=== PATIENT | male | born 1985 | race Caucasian/White ===

== ENCOUNTER 2019-08-14 14:00 | Outpatient (RCR) | payer OTHER, SELFPAY ==
[2019-05-22 08:46] VITALS: BMI 27.1
== END 2019-08-20 23:59 | disposition home or self-care (01) ==
LOC: ANHDMC 14:00
PROVIDERS: PCP Family Medicine; Visit Provider Family Medicine
DX: E11.65 Type 2 diabetes mellitus with hyperglycemia (principal); Z71.89 Other specified counseling; Z71.3 Dietary counseling and surveillance
CPT/HCPCS: 97802; G0108

== ENCOUNTER 2022-08-06 21:07 | Inpatient (IN) | payer BC, SELFPAY ==
--- NOTE | ~2022-08-06 | XR_ITS ---
EXAMINATION: XR chest 2V DATE: 08/06/2022 23:47 INDICATION: Diabetic ketoacidosis. TECHNIQUE: Frontal and lateral views of the chest were obtained. COMPARISON: None. FINDINGS: Calcified right lung nodules are consistent with old granulomatous disease. No pleural effu nikki or pneumothorax. The heart size is normal. IMPRESSION: 1. No acute cardiopulmonary disease. Reviewed, dictated and finalized at location A. [facility] TESTING
[2022-08-06 21:14] VITALS: BP 113/99; PULSE 121; RESP 30; TEMP 36.1; O2SAT 100
[2022-08-06 21:31] LABS: Basophils Absolute Auto 0.1 K/mm3 (0.0-0.1); Basophils Percent Auto 0.3 % (0.2-1.2); Eosinophils Percent Auto 0.1 % (0-4.4); Hematocrit 43.8 % (42.0-52.0); Hemoglobin 14.2 g/dL (14.0-18.0); Immature Granulocyte Absolute 0.25 K/mm3 (0.00-0.031); Immature Granulocyte Percent A 1.3 % (0-0.5); Lymphocytes Percent Auto 7.5 % (18.3-44.2); Mean Corpuscular HGB Conc 32.4 g/dl (32-36); Mean Corpuscular Hemoglobin 29.4 pg (26-34); Mean Corpuscular Volume 90.7 fl (80-100); Mean Platelet Volume 9.8 fl (7.4-10.4); Monocytes Absolute Auto 0.8 K/mm3 (0.1-0.6); Monocytes Percent Auto 4.5 % (2.6-8.5); Neutrophils Absolute Auto 16.2 K/mm3 (1.3-6.7); Neutrophils Percent Auto 86.3 % (45.5-73.1); Platelet Count Result 288 k/mm3 (150-375); Red Blood Count 4.83 M/mm3 (4.6-6.20); Red Cell Distribution Width 13.4 % (11.5-14.5); White Blood Count 18.7 K/mm3 (4.5-10.0)
[2022-08-06 21:31] LABS: Glucose Point of Care 350 mg/dl (65-105)
[2022-08-06 22:10] LABS: Alanine Aminotransferase 23 U/L (6-50); Albumin Level 4.7 g/dL (3.5-5.1); Alkaline Phosphatase 119 U/L (38-126); Aspartate Amino Transferase 18 U/L (17-59); Bilirubin,Total 0.7 mg/dL (0.2-1.3); Blood Urea Nitrogen 19 mg/dL (9-20); Calcium 9.3 mg/dL (8.4-10.2); Carbon Dioxide < 5 mmol/L (22-30); Chloride 98 mmol/L (98-107); Estimated CRCL calculation 80 ml/min; Estimated Glomerular Filt Rate > 60; Glucose 435 mg/dL (65-110); Magnesium 2.5 mg/dL (1.6-2.3); Phosphorus 6.7 mg/dL (2.5-4.5); Potassium 5.3 mmol/L (3.4-5.0); Sodium 128 mmol/L (137-145)
[2022-08-06 22:16] VITALS: BP 134/83; PULSE 114; RESP 33; O2SAT 100
[2022-08-06] MEDS: SODIUM CHLORIDE 0.9% IV 1,000 ML 999 ML IV CONT ×2 (22:27→23:22)
[2022-08-06] MEDS: INSULIN HUMAN REGULAR (*BKC) 100 UNITS/ML 10 UNITS IV PUSH (22:28)
[2022-08-06 22:35] LABS: Glucose Point of Care 411 mg/dl (65-105)
[2022-08-06 22:42] LABS: Carboxyhemoglobin 0.8 % THb (0-2.0); Fractional Inspired Oxygen 21 %; HCO3 ABG 3.1 mEq/l (22.0-26.0); Methemoglobin ABG 0.6 %THb (0-1.5); Oxygen Content ABG 19.4 %vol (16.0-22.0); Oxygen Saturation ABG 96.6 % (95.0-100.0); PO2 ABG 134.6 mmHg (80.0-100.0); PO2 FiO2 Ratio Arterial Blood 6.41 %; Reduced Hemoglobin 2.6 %THb (0-5.0); Total Hemoglobin 14.2 g/dL (12.0-18.0)
[2022-08-06 22:44] LABS: PCO2 ABG 15.2 mmHg (35.0-45.0); pH ABG 6.926 (7.350-7.450)
[2022-08-06 22:45] VITALS: PULSE 121; RESP 30
[2022-08-06 22:45] LABS: Modified Allen's Test Pass; Site Drawn LEFT RADIAL
[2022-08-06 22:52] LABS: Hemoglobin A1C 12.4 % (<5.7)
[2022-08-06] MEDS: INSULIN HUMAN REGULAR (*BKC) 100 UNITS in SODIUM CHLORIDE 0.9% IV 99 ML 7 UNITS IV CONT (22:55)
--- NOTE | 2022-08-06 22:56 | ED.NAVMDI ---
HPI - Nausea/Vomiting/Diarrhea General Chief complaint: Nausea/Vomiting/Diarrhea Stated complaint: diabetic, I think I'm in DKA Time Seen by Provider: 08/06/22 22:09 History of Present Illness HPI Narrative: 37-year-old male history of type 2 diabetes presents to the emergency room for nausea vomiting, polyuria polydipsia and increased weakness over the past 7 days. Patient states he has not used his insulin for over a week, due to not getting it refilled. Related Data Home Medications Medication Instructions Recorded Confirmed bupropion HCl 150 mg tablet,12 hr 150 mg PO BID 05/22/19 sustained-release (Wellbutrin SR) sildenafil 100 mg tablet 100 mg PO DAILY PRN 05/22/19 insulin glargine 100 unit/mL (3 15 unit subcut DAILY 09/18/19 mL) subcutaneous pen (Basaglar KwikPen U-100 Insulin) Allergies Allergy/AdvReac Type Severity Reaction Status Date / Time No Known Allergies Allergy Verified 09/18/19 15:06 Review of Systems Review of Systems: CONSTITUTIONAL: Reports polyuria, polydipsia EYES: Denies visual changes, redness, or discharge. ENT: Denies rhinorrhea, congestion, sore throat, or otalgia. CARDIOVASCULAR: Denies chest pain, palpitations, or edema. RESPIRATORY: Reports tachypnea GASTROINTESTINAL: Reports nausea vomiting GENITOURINARY: Denies dysuria or hematuria. SKIN: Denies rash or itching. MUSCULOSKELETAL: Denies back pain, joint pain, or myalgia. NEUROLOGIC: Reports weakness PSYCHIATRIC: Denies anxiety or depression. [facility] Past Medical History Medical History (Updated 08/07/22 @ 00:16 by Lc Galarza APRN) Depression Type 2 diabetes mellitus Social History Social History Smoking status: Never smoker Alcohol intake: current Spiritual care concerns: No Exam Narrative: GENERAL: Chronically ill-appearing, well-nourished, no physical limitations, and in no acute distress. HEAD: Normocephalic, atraumatic. EYES: Conjunctivae normal, PERRLA and EOMI. ENT: External nose normal, Nares clear, no rhinorrhea or epistaxis. Mucous membranes dry. NECK: Supple. No meningeal signs. No adenopathy or masses. No carotid bruits or JVD CHEST: Clear to auscultation. Tachypneic. No wheezes rales or rhonchi. HEART: Tachycardia with regular rhythm. No murmur heard. Normal peripheral pulses. ABDOMEN: Soft, nontender, nondistended, normal active bowel sounds. BACK: No CVA tenderness EXTREMITIES: Normal range of motion. No edema. No clubbing or cyanosis SKIN: Warm, dry, no rash. No noted wounds NEURO: No focal deficits. Alert and oriented x3. MAEW. CN's II-XI intact bilaterally, normal gait PSYCH: Cooperative. Normal mood and affect. Course Vital Signs Vital signs: Vital Signs Temperature 36.1 C L 08/06/22 21:14 Pulse Rate 121 H 08/06/22 21:14 Respiratory Rate 30 H 08/06/22 21:14 Blood Pressure 113/99 H 08/06/22 21:14 Pulse Oximetry 100 08/06/22 21:14 Oxygen Delivery Room Air 08/06/22 21:14 Temperature 36.1 C L 08/06/22 21:14 Pulse Rate 116 H 08/06/22 23:15 Respiratory Rate 23 H 08/06/22 23:15 Blood Pressure 130/70 08/06/22 23:01 Pulse Oximetry 100 08/06/22 23:15 Oxygen Delivery Room Air 08/06/22 21:14 MDM - Nausea/Vomiting/Diarrhea Lab Data 08/06/22 21:25 08/06/22 21:25 Labs: Lab Results 08/06/22 08/06/22 08/06/22 Range/Units 21:22 21:25 21:25 WBC 18.7 H (4.5-10.0) K/mm3 RBC 4.83 (4.6-6.20) M/mm3 Hgb 14.2 (14.0-18.0) g/dL Hct 43.8 (42.0-52.0) % MCV 90.7 (80-100) fl MCH 29.4 (26-34) pg MCHC 32.4 (32-36) g/dl RDW 13.4 (11.5-14.5) % Plt Count 288 (150-375) k/mm3 MPV 9.8 (7.4-10.4) fl Immature Gran % (Auto) 1.3 H (0-0.5) % Neut % (Auto) 86.3 H (45.5-73.1) % Lymph % (Auto) 7.5 L (18.3-44.2) % [place] % (Auto) 4.5 (2.6-8.5) % Eos % (Auto) 0.1 (0-4.4) % Baso % (Auto) 0.3 (0.2-1.2
[2022-08-06 23:00] VITALS: PULSE 117; RESP 26; O2SAT 100
--- NOTE | 2022-08-06 23:00 | ECG_ITS ---
Measurements Intervals [place] Rate: 116 P: 49 MT: 168 QRS: 39 QRSD: 102 T: 7 QT: 327 QTc: 455 Interpretive Statements SINUS TACHYCARDIA NONSPECIFIC T-WAVE ABNORMALITY- INFERIOR LEADS BASELINE ARTIFACT- II, III, AVR, AVF ABNORMAL ECG NO PREVIOUS ECG AVAILABLE FOR COMPARISON Electronically Signed On 08-07-2022 9:58:42 BIKE ASSEMBLER by Fawad Anderson D.O.
[2022-08-06 23:01] VITALS: BP 130/70; PULSE 117; RESP 24; O2SAT 100
[2022-08-06 23:03] LABS: Glucose Point of Care 413 mg/dl (65-105)
[2022-08-06 23:09] LABS: Appearance Urine Clear (Clear); Bilirubin Urine 1+ (Negative); Blood Urine 1+ (Negative); Color Urine Yellow (Yellow); Glucose Urine UA 2+ mg/dL (Negative); Ketones Urine 4+ mg/dL (Negative); Leukocyte Esterase Ur Negative LEU/UL (Negative); Nitrate Urine Negative (Negative); Protein Urine 2+ mg/dL (Negative); Specific Grav Ur 1.025 (1.001-1.035); Urobilinogen Urine 0.2 mg/dL (<2.0)
[2022-08-06 23:12] LABS: Mucus Urine Rare /lpf
[2022-08-06 23:15] VITALS: PULSE 116; RESP 23; O2SAT 100
[2022-08-06 23:23] LABS: Add Urine Microscopic? YES
[2022-08-07] VITALS (19 sets, daily range): BP systolic 100–151; BP diastolic 60–111; PULSE 114–133; RESP 14–22; TEMP 36.6–37.4; O2SAT 98–100; BMI 28.3
[2022-08-07] MEDS: SODIUM CHLORIDE 0.9% IV 1,000 ML 999 ML IV CONT ×2 (00:11→06:49)
[2022-08-07] MEDS: SODIUM BICARBONATE 8.4% 50 MEQ/50 ML SYRINGE IV PUSH (00:11)
[2022-08-07 01:02] LABS: Glucose Point of Care 242 mg/dl (65-105)
[2022-08-07 01:02] LABS: Glucose Point of Care 330 mg/dl (65-105)
[2022-08-07] MEDS: KCL 20 MEQ/D5/0.45% SOD CHL 1,000 ML 150 ML IV CONT ×2 (01:45→08:56)
--- NOTE | 2022-08-07 01:54 | ADMGEN ---
This patient, Shane Wheeler, was admitted to Intensive Care Unit-5. Patient/family oriented to hospital policies and general routines including ID bracelet, bed and alarms, visiting hours, pain management, procedures, bathroom and other care routines, personal items, smoking policy, room service/diet, and visiting hours. Information on how to activate the Rapid Response Team has been discussed. Patient/Family are encouraged to report perceived risks to care and to ask questions if they do not understand what they are told or what they should do.
[2022-08-07 02:48] LABS: Glucose Point of Care 165 mg/dl (65-105)
[2022-08-07 03:14] LABS: Blood Urea Nitrogen 18 mg/dL (9-20); Calcium 8.2 mg/dL (8.4-10.2); Carbon Dioxide < 5 mmol/L (22-30); Chloride 111 mmol/L (98-107); Estimated CRCL calculation 90 ml/min; Estimated Glomerular Filt Rate > 60; Glucose 201 mg/dL (65-110); Potassium 4.2 mmol/L (3.4-5.0); Sodium 137 mmol/L (137-145)
[2022-08-07 03:19] LABS: Glucose Point of Care 193 mg/dl (65-105)
[2022-08-07 03:31] LABS: Influenza A QL RT-PCR Negative (Negative); Influenza B QL RT-PCR Negative (Negative); RSV RNA, RT-PCR Negative (Negative); SARS-CoV-2 RNA PCR Positive
[2022-08-07] MEDS: SODIUM BICARBONATE 8.4% 150 MEQ in DEXTROSE 5% 1,000 ML 950 ML IV CONT (04:09)
[2022-08-07 04:13] LABS: Glucose Point of Care 183 mg/dl (65-105)
[2022-08-07 05:02] LABS: Glucose Point of Care 195 mg/dl (65-105)
[2022-08-07 06:26] LABS: Glucose Point of Care 179 mg/dl (65-105)
[2022-08-07 06:59] LABS: Anion Gap 13 mmol/L (8-16); Blood Urea Nitrogen 17 mg/dL (9-20); Calcium 8.3 mg/dL (8.4-10.2); Carbon Dioxide 9 mmol/L (22-30); Chloride 109 mmol/L (98-107); Estimated CRCL calculation 111 ml/min; Estimated Glomerular Filt Rate > 60; Glucose 184 mg/dL (65-110); Potassium 3.6 mmol/L (3.4-5.0); Sodium 131 mmol/L (137-145)
--- NOTE | 2022-08-07 07:05 | PM.IMHP ---
H&P: HPI History of Present Illness Date/Time: 08/07/22 06:20 Chief Complaint: Vomiting, abdominal pain Narrative: 37-year-old male with past medical history of uncontrolled type 2 diabetes mellitus with insulin dependence who presented to the ER with nausea vomiting and abdominal pain. The patient evidently has had prior episodes of DKA due to nonadherence with medication regimen. He reports that he tested positive for COVID 12 03/06/2022. He had initial symptoms cough body aches and fevers. His cough has improved. He still has some nasal congestion. However he states that he did not feel that they did not follow-up with his doctor this past week to get a refill on his insulin. He has been out of insulin for at least 1 week. He states that he checks his blood sugars a couple of times a day but his sugars are routinely in the 300s. He takes 50 units of long-acting insulin but does not take any short-acting insulin. He has a Dexcom in place. He reports that he has been having several days of generalized the abdominal aching in pain in his sides. Then yesterday he began having numerous episodes of vomiting. He reports that his emesis was brown but did not appear to be consistent with coffee grounds. He reports having normal bowel movements. He denies any chest pain but has been short of breath for the last day or so. He has been having headache. He feels lightheaded and fatigued. Nursing staff reported that after IV fluid hydration the patient urinated 1 L and 1 void. At the time of my evaluation the patient had a palpable bladder up to the umbilicus. He reports that he will occasionally feels if he is not emptying his bladder completely but not recently. He denies any dysuria hematuria. He was having some urgency and frequency. He was having excessive thirst. He reports that he already has difficulty with erectile dysfunction. He denies any known history of neuropathy. He likely has nephropathy as demonstrated by his 2+ proteinuria. He denies a known history of obstructive sleep apnea or snoring. He states that his cannot tell him if he snores because she snores significantly. The patient reports that his weight was down several months ago in February on the side me and DKA. He states that he has put on some weight since then. Review of Systems Review of Systems: 12 systems were reviewed with pertinent positives and negatives per HPI. Except as documented in the HPI, all other systems were reviewed and are negative. [facility] Past Medical History Medical History (Updated 08/07/22 @ 07:26 by Marisol Oliveira DO) Depression Eczema Erectile dysfunction Type 2 diabetes mellitus Surgical History Surgical History (Updated 08/07/22 @ 07:26 by Marisol Oliveira DO) History of strabismus surgery In childhood Family History Family History (Updated 08/07/22 @ 07:30 by Marisol Oliveira DO) Grandparent Breast cancer Mother Unknown family medical history Estranged from the patient Father Unknown family medical history Estranged from the patient Social History Social History (Updated 08/07/22 @ 07:32 by Marisol Oliveira DO) Social History: The patient lives with his . They have been since 2021. They do not have any children. He is a lifelong nonsmoker. He drinks alcohol approximately once a month in in moderation. He works for a local [employer]. He denies illicit substance use. Code status: Full code Surrogate decision maker: Smoking status: Never smoker Alcohol intake: current Drinks per week: 0 Substance use: never Substance use type: does not use Lack of Transportation: No Lack of Food: Never True Current Housing: I Have Housing Concerned About Future Housing: No Difficulty Paying Gas/Electric Bills: No Difficulty Paying for Meds: No Currently Unemployed: No Education: Bachelor's Degree Difficulty w/ Childcare or Family Ca
[2022-08-07 07:27] LABS: Glucose Point of Care 188 mg/dl (65-105)
[2022-08-07 08:24] LABS: Glucose Point of Care 177 mg/dl (65-105)
[2022-08-07] MEDS: DULoxetine HCL 60 MG CAPSULE.DR PO (08:59)
[2022-08-07] MEDS: POTASSIUM CHLORIDE INJ 40 MEQ in SODIUM CHLORIDE 0.9% IV 500 ML 130 MEQ IVPB (08:59)
[2022-08-07] MEDS: lisinopriL 5 MG TABLET PO (08:59)
[2022-08-07] MEDS: INSULIN GLARGINE (*BKC) 100 UNITS/ML 60 UNITS SUB-Q (09:00)
--- NOTE | 2022-08-07 09:13 | WPDCNINT ---
Assessment and Plan Assessment and plan (1) DKA, type 2: Code(s): E11.10 - Type 2 diabetes mellitus with ketoacidosis without coma Status: Acute Assessment and Plan: Patient admitted with DKA secondary to noncompliance Patient was given IVF bolus and and started on infusion Patient was started on Insulin infusion and Q1H glucose monitoring was ordered Serial labs were ordered His anion gap is closed but CO2 is too low Will continue insulin infusion for now Will give Lantus Patient is asymptomatic and will start diet Switch to subcutaneous insulin with meals if patient tolerates p.o. diet and CO2 improves on the next BMP (2) Microalbuminuric diabetic nephropathy: Code(s): E11.21 - Type 2 diabetes mellitus with diabetic nephropathy Status: Acute Assessment and Plan: Continue lisinopril (3) Depression: Code(s): F32.9 - Major depressive disorder, single episode, unspecified Status: Acute Assessment and Plan: Continue duloxetine Plan DVT prophylaxis -SCDs Nutrition -diabetic Code Status - Full Code Stuffed Casing Tier Consult Note Consult date: 08/07/22 Reason for consult: DKA HPI: Shane Wheeler is a 37 year old male past medical history of type 2 diabetes and noncompliance who has been admitted in the past with DKA presented yesterday with chief complaint of abdominal pain nausea vomiting.. Patient ran out of his insulin almost a week ago and has not taken any insulin. Yesterday he started having nausea vomiting and abdominal pain. Abdominal pain was diffuse, no aggravating or relieving factor, 9/10 severe, achy, no radiation. No blood in vomitus. He was unable to keep anything down hence he presented to ER. ED patient was found to be in DKA. He had elevated WBC count but no other evidence of infection as his urinalysis was unremarkable for infection and chest x-ray was negative. Patient was admitted to ICU. He was given IV fluid bolus and started on IV fluids. He was given IV insulin and was started on IV insulin infusion. Serial labs ordered done. This morning he states he is feeling much better and denies any complaints at this time. He states his symptoms have completely resolved and he would like to eat food. He denies any nausea vomiting abdominal pain at this time. Patient denies fever, chest pain, shortness of breath, cough, nausea vomiting, abdominal pain,, diarrhea, headache or constipation. All other systems were reviewed and were negative Review of Systems Review of Systems: All systems reviewed & are unremarkable except as noted in HPI and below (HPI) PMFSH Past Medical History Medical History Depression Eczema Erectile dysfunction Type 2 diabetes mellitus Surgical History Surgical History History of strabismus surgery In childhood Family History Family History Grandparent Breast cancer Mother Unknown family medical history Estranged from the patient Father Unknown family medical history Estranged from the patient Social History Social History Social History: The patient lives with his . They have been since 2021. They do not have any children. He is a lifelong nonsmoker. He drinks alcohol approximately once a month in in moderation. He works for a local [employer]. He denies illicit substance use. Code status: Full code Surrogate decision maker: Smoking status: Never smoker Alcohol intake: current Drinks per week: 0 Substance use: never Substance use type: does not use Lack of Transportation: No Lack of Food: Never True Current Housing: I Have Housing Concerned About Future Housing: No Difficulty Paying Gas/Electric Bills: No Difficulty Paying for Meds: No Cu
[2022-08-07 09:45] LABS: Glucose Point of Care 177 mg/dl (65-105)
[2022-08-07] MEDS: INSULIN HUMAN REGULAR (*BKC) 100 UNITS in SODIUM CHLORIDE 0.9% IV 99 ML 12 UNITS IV CONT (10:48)
[2022-08-07 10:52] LABS: Glucose Point of Care 194 mg/dl (65-105)
[2022-08-07 11:09] LABS: Hematocrit 32.9 % (42.0-52.0); Hemoglobin 11.5 g/dL (14.0-18.0); Mean Corpuscular Hemoglobin 29.4 pg (26-34); Mean Corpuscular Volume 84.1 fl (80-100); Mean Platelet Volume 9.1 fl (7.4-10.4); Platelet Count Result 218 k/mm3 (150-375); Red Blood Count 3.91 M/mm3 (4.6-6.20); Red Cell Distribution Width 13.4 % (11.5-14.5); White Blood Count 11.2 K/mm3 (4.5-10.0)
[2022-08-07 11:22] LABS: Anion Gap 9 mmol/L (8-16); Blood Urea Nitrogen 14 mg/dL (9-20); Calcium 7.9 mg/dL (8.4-10.2); Carbon Dioxide 14 mmol/L (22-30); Chloride 109 mmol/L (98-107); Estimated CRCL calculation 126 ml/min; Estimated Glomerular Filt Rate > 60; Glucose 197 mg/dL (65-110); Potassium 3.7 mmol/L (3.4-5.0); Sodium 132 mmol/L (137-145)
[2022-08-07 12:26] LABS: Glucose Point of Care 214 mg/dl (65-105)
[2022-08-07 13:23] LABS: Glucose Point of Care 205 mg/dl (65-105)
[2022-08-07] MEDS: METOCLOPRAMIDE HCL INJ 10 MG/2 ML VIAL IV PUSH (14:30)
[2022-08-07] MEDS: KCL 20 MEQ/LR 1,000 ML 75 ML IV CONT (15:19)
[2022-08-07 15:28] LABS: Anion Gap 14 mmol/L (8-16); Blood Urea Nitrogen 13 mg/dL (9-20); Carbon Dioxide 13 mmol/L (22-30); Chloride 112 mmol/L (98-107); Estimated CRCL calculation 126 ml/min; Estimated Glomerular Filt Rate > 60; Glucose 212 mg/dL (65-110); Potassium 3.7 mmol/L (3.4-5.0); Sodium 139 mmol/L (137-145)
[2022-08-07] MEDS: INSULIN ASPART (*BKC) 100 UNITS/ML SUB-Q ×2 (17:30→20:15)
[2022-08-07 17:41] LABS: Glucose Point of Care 226 mg/dl (65-105)
[2022-08-07 19:18] LABS: Anion Gap 16 mmol/L (8-16); Blood Urea Nitrogen 12 mg/dL (9-20); Calcium 8.1 mg/dL (8.4-10.2); Carbon Dioxide 11 mmol/L (22-30); Chloride 112 mmol/L (98-107); Estimated CRCL calculation 145 ml/min; Estimated Glomerular Filt Rate > 60; Glucose 217 mg/dL (65-110); Potassium 3.9 mmol/L (3.4-5.0); Sodium 139 mmol/L (137-145)
[2022-08-07] MEDS: PROMETHAZINE HCL 25 MG/ML AMPUL 12.5 MG IV PUSH (20:07)
[2022-08-07 20:28] LABS: Glucose Point of Care 214 mg/dl (65-105)
[2022-08-07 23:42] LABS: Anion Gap 15 mmol/L (8-16); Blood Urea Nitrogen 11 mg/dL (9-20); Calcium 8.5 mg/dL (8.4-10.2); Carbon Dioxide 15 mmol/L (22-30); Chloride 109 mmol/L (98-107); Estimated CRCL calculation 111 ml/min; Estimated Glomerular Filt Rate > 60; Glucose 220 mg/dL (65-110); Potassium 3.6 mmol/L (3.4-5.0); Sodium 139 mmol/L (137-145)
[2022-08-08] VITALS (8 sets, daily range): BP systolic 97–135; BP diastolic 60–92; PULSE 111–137; RESP 14–19; TEMP 36.8–36.9; O2SAT 96–100
[2022-08-08] MEDS: METOCLOPRAMIDE HCL INJ 10 MG/2 ML VIAL IV PUSH ×3 (00:04→11:41)
[2022-08-08 00:08] LABS: Glucose Point of Care 228 mg/dl (65-105)
[2022-08-08 00:41] LABS: Fractional Inspired Oxygen 21 %; HCO3 VBG 14.3 mEq/l (24.0-30.0); PO2 VBG 55.9 mmHg (35.0-45.0); pH VBG 7.328 (7.300-7.400)
[2022-08-08 00:42] LABS: Device ROOM AIR; PCO2 VBG 27.9 mmHg (42.0-48.0)
[2022-08-08 01:14] LABS: Beta-Hydroxybutyrate/Acetoacetate 7.24 mmol/L (0.02-0.27)
[2022-08-08] MEDS: PROMETHAZINE HCL 25 MG/ML AMPUL IM (01:42)
[2022-08-08] MEDS: INSULIN ASPART (*BKC) 100 UNITS/ML SUB-Q ×7 (01:42→16:50)
[2022-08-08] MEDS: KCL 20 MEQ/LR 1,000 ML 125 ML IV CONT ×3 (02:22→18:01)
[2022-08-08 04:53] LABS: Hematocrit 35.2 % (42.0-52.0); Hemoglobin 12.1 g/dL (14.0-18.0); Mean Corpuscular HGB Conc 34.4 g/dl (32-36); Mean Corpuscular Hemoglobin 28.9 pg (26-34); Mean Platelet Volume 9.4 fl (7.4-10.4); Platelet Count Result 216 k/mm3 (150-375); Red Blood Count 4.19 M/mm3 (4.6-6.20); White Blood Count 9.9 K/mm3 (4.5-10.0)
[2022-08-08 05:08] LABS: Alanine Aminotransferase 19 U/L (6-50); Albumin Level 3.5 g/dL (3.5-5.1); Alkaline Phosphatase 85 U/L (38-126); Anion Gap 16 mmol/L (8-16); Aspartate Amino Transferase 18 U/L (17-59); Bilirubin,Total 0.7 mg/dL (0.2-1.3); Blood Urea Nitrogen 11 mg/dL (9-20); Calcium 8.4 mg/dL (8.4-10.2); Carbon Dioxide 14 mmol/L (22-30); Chloride 113 mmol/L (98-107); Estimated CRCL calculation 126 ml/min; Estimated Glomerular Filt Rate > 60; Glucose 248 mg/dL (65-110); Magnesium 2.1 mg/dL (1.6-2.3); Potassium 3.6 mmol/L (3.4-5.0); Sodium 143 mmol/L (137-145)
[2022-08-08 05:41] LABS: Glucose Point of Care 261 mg/dl (65-105)
[2022-08-08 08:12] LABS: Glucose Point of Care 218 mg/dl (65-105)
[2022-08-08] MEDS: DULoxetine HCL 60 MG CAPSULE.DR PO (08:17)
[2022-08-08] MEDS: lisinopriL 5 MG TABLET PO (08:17)
[2022-08-08] MEDS: INSULIN GLARGINE (*BKC) 100 UNITS/ML 60 UNITS SUB-Q (08:32)
[2022-08-08 11:40] LABS: Glucose Point of Care 253 mg/dl (65-105)
--- NOTE | 2022-08-08 13:03 | PM.IMPN ---
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 Advanced diet as tolerated. Tachycardia noted possibly secondary to withdrawal the start of small of beta-linsey. Transfer to [facility]. Spoke to patient and family in detail. Counseling of compliance with medication and monitoring diabetes closely patient also advised to follow up with primary care physician closely after discharge. Yearly eye exam and foot exam. HBA1c ( goal <7.0%) , Renal functions, Liver panel every 3 months Monitor vitamin B12 levels Watch for Hypoglycemia. 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 HEAD: Normocephalic, atraumatic. NECK: Supple. No adenopathy, no masses. RESPIRATORY: Airway patent, respirations nonlabored. Clear to auscultation bilaterally, no rales, rhonchi, wheezing. CARDIOVASCULAR: Regular rate and rhythm without murmurs, rubs, or gallops. Peripheral pulses 2+ and equal bilaterally. ABDOMINAL: Soft, nontender, nondistended, no hepatosplenomegaly. Normoactive BS. MUSCULOSKELETAL: no Epigastric and no hypochondrial tenderness SKIN: Warm, dry, normal color. No rashes. NEURO: A&O X3. Moves all extremities PSYCHIATRIC: Appropriate mood and affect. Normal interaction. Objective Data Vital Signs Vital Signs: Vital Signs - 24 hr 08/07/22 14:00 08/07/22 14:00 08/07/22 16:00 Temperature 37.1 C Pulse Rate 126 H 126 H 121 H Respiratory Rate 18 18 Blood Pressure 113/65 110/60 Pulse Oximetry 99 100 Oxygen Delivery 08/07/22 16:00 08/07/22 19:40 08/07/22 19:44 Temperature 37.2 C Pulse Rate 120 H 126 H 126 H Respiratory Rate 18 Blood Pressure Pulse Oximetry 99 99 Oxygen Delivery Room Air 08/07/22 20:34 08/07/22 20:35 08/07/22 20:00 Temperature 37.2 C Pulse Rate 129 H 132 H Respiratory Rate 18 Blood Pressure 129/110 H 120/79 Pulse Oximetry 99 Oxygen Delivery 08/08/22 00:00 08/08/22 00:00 08/08/22 04:00 Temperature Pulse Rate 134 H 134 H 125 H Respiratory Rate 18 Blood Pressure 135/92 H Pulse Oximetry 100 Oxygen Delivery 08/08/22 04:00 08/08/22 08:00 08/08/22 08:00 Temperature 36.8 C Pulse Rate 123 H 123 H 123 H Respiratory Rate 15 15 15 Blood Pressure 105/64 127/81 Pulse Oximetry 98 97 97 Oxygen Delivery Room Air 08/08/22 08:00 08/08/22 12:00 Temperature Pulse Rate 124 H 137 H Respiratory Rate Blood Pressure Pulse Oximetry Oxygen Delivery Intake/Output Intake/Output: Intake & Output 08/05/22 08/06/22 08/07/22 08/08/22 23:59 23:59 23:59 23:59 Intake Total 1000 6240 2240 Output Total 4450 1400 Balance 1000 1790 840 Meds/Results Medications: Active Medications Generic Name Dose Route Start Last Admin Trade Name Freq PRN Reason Stop Dose Admin Dextrose 12.5 gm 08/07/22 13:32 Dextrose 50% 25 Gm/50 Ml Syringe IV PUSH PRN PRN Hypoglycemia Protocol Duloxetine HCl 60 mg 08/07/22 09:00
[2022-08-08] MEDS: METOPROLOL SUCCINATE EXT REL 25 MG TABCR PO (14:18)
[2022-08-08 16:48] LABS: Glucose Point of Care 194 mg/dl (65-105)
[2022-08-08 20:59] LABS: Glucose Point of Care 156 mg/dl (65-105)
[2022-08-09] VITALS (7 sets, daily range): BP systolic 113–128; BP diastolic 72–92; PULSE 94–105; RESP 13–16; TEMP 36.9; O2SAT 99–100; BMI 28.3
[2022-08-09] MEDS: KCL 20 MEQ/LR 1,000 ML 125 ML IV CONT ×2 (01:30→09:10)
[2022-08-09 03:32] LABS: Hematocrit 31.4 % (42.0-52.0); Hemoglobin 10.9 g/dL (14.0-18.0); Mean Corpuscular HGB Conc 34.7 g/dl (32-36); Mean Corpuscular Hemoglobin 28.8 pg (26-34); Mean Corpuscular Volume 82.8 fl (80-100); Mean Platelet Volume 9.5 fl (7.4-10.4); Platelet Count Result 180 k/mm3 (150-375); Red Blood Count 3.79 M/mm3 (4.6-6.20); White Blood Count 7.1 K/mm3 (4.5-10.0)
[2022-08-09 03:48] LABS: Alanine Aminotransferase 16 U/L (6-50); Albumin Level 2.9 g/dL (3.5-5.1); Alkaline Phosphatase 69 U/L (38-126); Anion Gap 4 mmol/L (8-16); Aspartate Amino Transferase 18 U/L (17-59); Blood Urea Nitrogen 10 mg/dL (9-20); Calcium 8.1 mg/dL (8.4-10.2); Carbon Dioxide 27 mmol/L (22-30); Chloride 107 mmol/L (98-107); Estimated CRCL calculation 170 ml/min; Estimated Glomerular Filt Rate > 60; Glucose 153 mg/dL (65-110); Magnesium 2.1 mg/dL (1.6-2.3); Sodium 138 mmol/L (137-145)
[2022-08-09] MEDS: lisinopriL 5 MG TABLET PO (09:09)
[2022-08-09] MEDS: METOPROLOL SUCCINATE EXT REL 25 MG TABCR PO (09:10)
[2022-08-09] MEDS: DULoxetine HCL 60 MG CAPSULE.DR PO (09:10)
[2022-08-09] MEDS: INSULIN GLARGINE (*BKC) 100 UNITS/ML 60 UNITS SUB-Q (09:11)
[2022-08-09] MEDS: INSULIN ASPART (*BKC) 100 UNITS/ML SUB-Q ×2 (09:11→11:48)
--- NOTE | 2022-08-09 11:59 | P.CDI_ITS ---
CDI Query Clarified Diagnosis Clarified Diagnosis: Positive COVID test on 08/07/22 lab work. Please clarify the status of the patient's COVID-19 infection, if known. * COVID-19 is a current/active infection * Current condition is a sequela of COVID-19 * Past history of COVID-19 * Other explanation of clinical findings (please specify) * Unable to determine <Sully Dai RN - Last Filed: 08/09/22 12:01> Positive COVID test on 08/07/22 lab work. Please clarify the status of the patient's COVID-19 infection, if known. * COVID-19 is a current/active infection * Current condition is a sequela of COVID-19 * * Other explanation of clinical findings (please specify) * Unable to determine <Caren Valverde MD - Last Filed: 08/10/22 15:55> Provider Comments past history of COVID-19 pt states he had covid 3 weeks ago <Caren Valverde MD - Last Filed: 08/10/22 15:55>
--- NOTE | 2022-08-09 11:59 | WPDCDIQUERY2 ---
CDI Query Clarified Diagnosis Clarified Diagnosis: Positive COVID test on 08/07/22 lab work. Please clarify the status of the patient's COVID-19 infection, if known. COVID-19 is a current/active infection Current condition is a sequela of COVID-19 Past history of COVID-19 Other explanation of clinical findings (please specify) Unable to determine <Sully Dai RN - Last Filed: 08/09/22 12:01> Positive COVID test on 08/07/22 lab work. Please clarify the status of the patient's COVID-19 infection, if known. COVID-19 is a current/active infection Current condition is a sequela of COVID-19 Other explanation of clinical findings (please specify) Unable to determine <Caren Valverde MD - Last Filed: 08/10/22 15:55> Provider Comments past history of COVID-19 pt states he had covid 3 weeks ago <Caren Valverde MD - Last Filed: 08/10/22 15:55>
--- NOTE | 2022-08-09 12:02 | P.CDI_ITS ---
CDI Query Clarified Diagnosis Clarified Diagnosis: Positive COVID test on 08/07/22 lab work. Please clarify the status of the patient's COVID-19 infection, if known. * COVID-19 is a current/active infection * Current condition is a sequela of COVID-19 * Past history of COVID-19 * Other explanation of clinical findings (please specify) * Unable to determine
--- NOTE | 2022-08-09 12:02 | WPDCDIQUERY2 ---
CDI Query Clarified Diagnosis Clarified Diagnosis: Positive COVID test on 08/07/22 lab work. Please clarify the status of the patient's COVID-19 infection, if known. COVID-19 is a current/active infection Current condition is a sequela of COVID-19 Past history of COVID-19 Other explanation of clinical findings (please specify) Unable to determine
[2022-08-09 12:03] LABS: Glucose Point of Care 151 mg/dl (65-105)
[2022-08-09 13:29] LABS: Glucose Point of Care 149 mg/dl (65-105)
--- NOTE | 2022-08-09 13:32 | PM.DS ---
DS: Admitting Diagnosis Discharge Date 08/09/2021 Admitting Diagnosis Vomiting, abdominal pain, DKA DS: Discharge Diagnosis Discharge Diagnosis (1) DKA, type 2: Code(s): E11.10 - Type 2 diabetes mellitus with ketoacidosis without coma Status: Acute Assessment and Plan: Pt off insulin drip transitioned to meal time insulins and back to his long acting insulin Yearly eye exam and foot exam. HBA1c ( goal <7.0%) , Renal functions, Liver panel every 3 months Monitor vitamin B12 levels Watch for Hypoglycemia. 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 Advanced diet as tolerated. Pt started of small of beta-linsey for tachycardia Counseling of compliance with medication and monitoring diabetes closely patient also advised to follow up with primary care Physician closely after discharge. DC on insulin with meals and long acting insulin Time Spent with Patient Time attestation: Total time spent providing and/or coordinating discharge services: Exam Narrative: GENERAL: Well appearing, well-nourished, non-toxic, in no acute distress. HEAD: Normocephalic, atraumatic. NECK: Supple. No adenopathy, no masses. RESPIRATORY: Airway patent, respirations nonlabored. Clear to auscultation bilaterally, no rales, rhonchi, wheezing. CARDIOVASCULAR: Regular rate and rhythm without murmurs, rubs, or gallops. Peripheral pulses 2+ and equal bilaterally. ABDOMINAL: Soft, nontender, nondistended, no hepatosplenomegaly. Normoactive BS. MUSCULOSKELETAL: no Epigastric and no hypochondrial tenderness SKIN: Warm, dry, normal color. No rashes. NEURO: A&O X3. Moves all extremities PSYCHIATRIC: Appropriate mood and affect. Normal interaction. DS: Data Data Completed and Pending Labs on day of discharge: Labs from last 24 hours 08/09/22 08/09/22 08/09/22 11:39 07:16 03:15 WBC RBC Hgb Hct MCV MCH MCHC RDW Plt Count MPV Sodium 138 Potassium 3.0 L Chloride 107 Carbon Dioxide 27 Anion Gap 4 L BUN 10 Creatinine 0.50 L Estim Creat Clear Calc 170 Estimated GFR > 60 Glucose 153 H POC Capillary Glucose 151 H 149 H Calcium 8.1 L Magnesium 2.1 Total Bilirubin 1.0 AST 18 ALT 16 Alkaline Phosphatase 69 Total Protein 6.0 L Albumin 2.9 L 08/09/22 08/08/22 08/08/22 03:15 20:56 16:44 WBC 7.1 RBC 3.79 L Hgb 10.9 L Hct 31.4 L MCV 82.8 MCH 28.8 MCHC 34.7 RDW 14.0 Plt Count 180 MPV 9.5 Sodium Potassium Chloride Carbon Dioxide Anion Gap BUN Creatinine Estim Creat Clear Calc Estimated GFR Glucose POC Capillary Glucose 156 H 194 H Calcium Magnesium Total Bilirubin AST ALT Alkaline Phosphatase Total Protein Albumin Discharge Plan Discharge Attending physician on discharge: Caren Valverde Consulting providers: Sang Baez ; Cricket Madrigal ; Fawad Anderson ; Nino Vivar V. Discharging Clinician: Caren Valverde Anticipated Discharge Date/Time: 08/09/22 13:29 Patient Disposition: Home, Self-Care Activity: as tolerated Diet: diabetic Discharge Instructions: Compliance to diabetic medications Patient Instructions: Diabetic Ketoacidosis (
== END 2022-08-09 14:49 | disposition home or self-care (01) | DRG 639 ==
LOC: ANHED 08-07 00:16 → ANHICU 08-07 00:50
PROVIDERS: Emergency Medicine; Internal Medicine; Admitting Provider Internal Medicine; Emergency Provider Nurse Practitioner Family; PCP Emergency Medicine; Visit Provider Family Medicine
DX: E11.10 Type 2 diabetes mellitus with ketoacidosis without coma (principal); Z79.4 Long term (current) use of insulin; R00.0 Tachycardia, unspecified; E11.21 Type 2 diabetes mellitus with diabetic nephropathy; N52.9 Male erectile dysfunction, unspecified; F32.9 Major depressive disorder, single episode, unspecified; Z86.16 Personal history of COVID-19
CPT/HCPCS: 36415; 36600; 71046; 80048; 80053; 81001; 82010; 82375; 82803; 82805; 82948; 83036; 83050; 83735; 84100; 85025; 85027; 87637; 93005; 96361; 96374; 99285; A9270; J1815; J2550; J2765; J3480; J7030; J7040; J7070

== ENCOUNTER 2024-07-08 13:16 | Inpatient (IN) | payer BC, SELFPAY ==
[2024-07-08] VITALS (8 sets, daily range): BP systolic 108–140; BP diastolic 64–90; PULSE 127–143; RESP 15–24; TEMP 36.4–37.1; O2SAT 100; BMI 29.4
--- NOTE | ~2024-07-08 | XR_ITS ---
XR chest 1V portable DATE: 07/08/2024 18:43 INDICATION: Leukocytosis TECHNIQUE: Portable AP chest on 07/08/2024 at 1840 hours COMPARISON: 2 view chest / CT abdomen pelvis FINDINGS: Normal heart size. No hilar or mediastinal enlargement. No pulmonary consolidation, pleural effusion, pulmonary vascular congestion or pneumothorax is evident. Included skeletal structures are unremarkable. IMPRESSION: When viewed in conjunction with the CT abdomen pelvis performed on 07/08/2024 at 1554 davis rs, no active cardiopulmonary disease is noted Reviewed, dictated and finalized at location A. ENGINEERING TECHNICIAN IMPRESSION: When viewed in conjunction with the CT abdomen pelvis performed on 07/08/2024 at 1554 hours, no active cardiopulmonary disease is noted
--- NOTE | ~2024-07-08 | CT_ITS ---
EXAMINATION: CT abdomen pelvis w con DATE: 07/08/2024 17:06 INDICATION: Abdominal pain, vomiting TECHNIQUE: Computed tomography (CT) of the abdomen and pelvis was performed with 100 CC Omnipaque 350 intravenous contrast. Automated exposure control and iterative reconstruction technique were employe d. Exam dose: 580.61 mGy-cm total exam DLP. COMPARISON: None. FINDINGS: The lung bases are clear. Normal heart size. No pericardial or pleural effusion. Small sliding hiatal hernia, thickening of the distal esophageal wall, possibly due to esophagitis. The liver, gallbladder, bile ducts, pancreas, pancreatic duct and spleen appear normal. Normal morphology of the adrenal glands. No renal mass lesion or urinary tract calculus or hydroureteronephrosis. Normal caliber of the abdominal aorta. No intraperitoneal or retroperitoneal or pelvic mass lesion or adenopathy or ascites. The urinary bladder is distended, extending almost as high as the level of the umbilicus. No bladder wall thickening. Mild prostate enlargement. The seminal vesicles are unremarkable. Normal appendix. No bowel obstruction or intraperitoneal free air. Included skeletal structures are unremarkable IMPRESSION: Prominent urinary bladder distention, extending almost as high as the umbilicus Small sliding hiatal hernia, distal esophageal wall thickening suggesting esophagitis Normal appendix Reviewed, dictated and finalized at [facility]. Reviewed, dictated and finalized at location A. CDL DRIVER IMPRESSION: Prominent urinary bladder distention, extending almost as high as the umbilicus Small sliding hiatal hernia, distal esophageal wall thickening suggesting esoph agitis Normal appendix
[2024-07-08 14:59] LABS: Glucose Point of Care 386 mg/dl (65-105)
--- NOTE | 2024-07-08 15:27 | ED_ITS ---
HPI - Nausea/Vomiting/Diarrhea General Chief complaint: Nausea/Vomiting/Diarrhea <Ivet Orellana PA-C - Last Filed: 07/08/24 18:59> Stated complaint: vomiting <MATTHEW Carvajal Last Filed: 07/08/24 18:59> Time Seen by Provider: 07/08/24 14:58 <MATTHEW Carvajal Last Filed: 07/08/24 18:59> Source: patient and family <MATTHEW Carvajal Last Filed: 07/08/24 18:59> Mode of arrival: ambulatory <MATTHEW Carvajal Last Filed: 07/08/24 18:59> Limitations: no limitations <MATTHEW Carvajal Last Filed: 07/08/24 18:59> History of Present Illness HPI Narrative: This is a 39-year-old male that presents to the emergency department for nausea and vomiting. Patient has history of diabetes. He has been running out of his insulin. He had his last dose earlier this morning, but has been slowly trying to taper himself off because he knew a was running out. He has not has normal does over the last couple of days. He has had recurrent nausea and vomiting and seems confused to his family member today. <Ivet Orellana PA-C - Last Filed: 07/08/24 18:59> Related Data Home medications: Home Medications ?Medication ?Instructions ?Recorded ?Confirmed ?Last Taken ?Type buspirone 10 mg tablet 10 mg PO TID 07/08/24 07/08/24 07/07/24 History dextroamphetamine-amphetamine 10 20 mg PO DAILY 07/08/24 07/08/24 07/07/24 History mg tablet fexofenadine 180 mg tablet 180 mg PO DAILY PRN seasonal 07/08/24 07/08/24 Unknown History (Aller-Fex) allergies insulin lispro 100 unit/mL See Rx Instructions continuous 07/08/24 07/08/24 07/07/24 History subcutaneous solution (Humalog subcutaneous infusion .COMPLEX DM1 U-100 Insulin) <MATTHEW Carvajal Last Filed: 07/08/24 18:59> Allergies/Adverse reactions: Allergies Allergy/AdvReac Type Severity Reaction Status Date / Time No Known Allergies Allergy Verified 07/08/24 15:44 <Ivet Orellana PA-C - Last Filed: 07/08/24 18:59> Review of Systems 2 Review of Systems: CONSTITUTIONAL: Denies fever GASTROINTESTINAL: Reports abdominal pain, nausea, vomiting <MATTHEW Carvajal Last Filed: 07/08/24 18:59> All systems reviewed & are unremarkable except as noted in HPI and below < Ivet Orellana PA-C - Last Filed: 07/08/24 18:59> [facility] Past Medical History Medical History: Medical History Depression Eczema Erectile dysfunction Type 2 diabetes mellitus <MATTHEW Carvajal Last Filed: 07/08/24 18:59> Surgical History Surgical History: Surgical History History of strabismus surgery In childhood <MATTHEW Carvajal Last Filed: 07/08/24 18:59> Family History Family History: Family History (Updated 07/08/24 @ 21:56 by Anita Curry RN) Grandparent Skin cancer Breast cancer Peripheral vascular disease Lung cancer Mother Unknown family medical history Estranged from the patient Substance abuse Father Unknown family medical history Estranged from the patient <Ivet Orellana PA-C - Last Filed: 07/08/24 18:59> Social History Social History: Social History Social History: The patient lives with his . They have been since 2021. They do not have any children. He is a lifelong nonsmoker. He drinks alcohol approximately once a month in in moderation. He works for a [employer]. He denies illicit substance use. Code status: Full code Surrogate decision maker: Smoking status: Never smoker Second hand tobacco smoke exposure: No Alcohol intake: former Drinks per week: 5 Substance use: current Substance use type: marijuana Do You Feel Safe in your Home?: Yes Lack of Transportation: No Lack of Food: Never True Current Housing: I Have Housing Concerned About Future Housing: No Difficulty Paying Gas/Electric Bills: No Difficulty Paying for Meds: No Currently Unemployed: No Education: Bachelor's Degree Difficulty w/ Childcare or Family Care: No Spiritual care concerns: Yes <Ivet Orellana PA-C - Last Filed: 07/08/24 18:59> Exam 2 Narrative: GENERAL: Ill-appearing, well-nourished, and in no acute distress. HEAD: Normocephalic, atraumatic. EYES: EOMI. ENT: Nares clear, no rhinorrhea or epistaxis. Mucous membranes dry. Oropharynx without tonsillar hypertrophy exudate or other lesions. NECK: Supple. No adenopathy or masses. CHEST: Clear to auscultation. No respiratory distress. No wheezes rales or rhonchi HEART: Regular rate and rhythm. No murmur heard. Normal peripheral pulses. ABDOMEN: Soft, nontender, nondistended, normal active bowel sounds. EXTREMITIES: Normal range of motion. No edema. SKIN: Warm, dry, no rash. NEURO: No focal deficits. Alert and oriented x3. PSYCH: Normal mood and affect <Ivet Orellana PA-C - Last Filed: 07/08/24 18:59> Course Course Emergency Course: patient updated on workup and need for admission <Ivet Orellana PA-C - Last Filed: 07/08/24 18:59> [employer]/PA Physician Supervision I agree with midlevel documentation; I performed the medical decision making component of this evaluation. I had independent [id number] time with the patient and performed my own independent evaluation and assessment. Patient is in diabetic ketoacidosis, has been rationing his insulin at home which likely precipitated his presentation today. Patient is tachycardic, dehydrated appearance and required fluid resuscitation here in the emergency department. After his VBG was obtained he is in severe metabolic acidosis with incomplete compensation from respiratory efforts. Started on insulin therapy with weight based insulin without a bolus. Potassium at 4.9 and we can initiate insulin therapy with KCl replenishment in his fluids. Patient will be admitted to the ICU at this time. Silverware Etcher and the hospitalist for spoken to and agree with disposition and ICU admission. Refer to mid-level documentation for other details of care and admission. <Demarcus Patton MD - Last Filed: 07/08/24 22:30> Consultations Consultation #1: Spoke with hospitalist about patient and workup who accepts admission < Ivet Orellana PA-C - Last Filed: 07/08/24 18:59> Date: 07/08/24 <Ivet Orellana PA-C - Last Filed: 07/08/24 18:59> Consultation #2: spoke with logging rafter laborer who will consult <Ivet Orellana PA-C - Last Filed: 07/08/24 18:59> Date: 07/08/24 <Ivet Orellana PA-C - Last Filed: 07/08/24 18:59> Vital Signs Vital signs: Vital Signs Temperature 36.4 C L 07/08/24 13:25 Pulse Rate 127 H 07/08/24 13:25 Respiratory Rate 17 07/08/24 13:25 Blood Pressure 108/73 07/08/24 13:25 Pulse Oximetry 100 07/08/24 13:25 Oxygen Delivery Room Air 07/08/24 13:25 Temperature 36.4 C L 07/08/24 13:25 Pulse Rate 137 H 07/08/24 18:31 Respiratory Rate 17 07/08/24 18:31 Blood Pressure 121/65 07/08/24 18:31 Pulse Oximetry 100 07/08/24 18:31 Oxygen Delivery Room Air 07/08/24 13:25 <Ivet Orellana PA-C - Last Filed: 07/08/24 18:59> Vital Signs Temperature 36.4 C L 07/08/24 13:25 Pulse Rate 127 H 07/08/24 13:25 Respiratory Rate 17 07/08/24 13:25 Blood Pressure 108/73 07/08/24 13:25 Pulse Oximetry 100 07/08/24 13:25 Oxygen Delivery Room Air 07/08/24 13:25 Temperature 36.4 C L 07/08/24 13:25 Pulse Rate 137 H 07/08/24 18:31 Respiratory Rate 17 07/08/24 18:31 Blood Pressure 121/65 07/08/24 18:31 Pulse Oximetry 100 07/08/24 18:31 Oxygen Delivery Room Air 07/08/24 13:25 <Demarcus Patton MD - Last Filed: 07/08/24 22:30> MDM - Nausea/Vomiting/Diarrhea MDM Narrative Medical decision making narrative: patient presents to the emergency department for nausea, vomiting and lethargy. Recently ran out of his insulin. Patient is afebrile, tachycardic into the 120s. CBC with leukocytosis to 14.6. Metabolic panel with evidence of diabetic ketoacidosis. His bicarb is 6, he has a gap of 31. Creatinine is elevated at 1.6. Beta hydroxybutyrate 12.5; pH is 7.2, PCO2 13.9. CT abdomen pelvis shows bladder distension. He was able to urinate without problems after this. Shows some esophagitis. Will be given a dose of Protonix. Patient fluid resuscitated. Started on insulin drip. Spoke with hospitalist about patient and workup who accepts admission. Spoke with logging rafter laborer who will consult < Ivet Orellana PA-C - Last Filed: 07/08/24 18:59> Differential Diagnosis Differential diagnosis: Likely food poisoning, gastroenteritis, dehydration and other (DKA) <Ivet Orellana PA-C - Last Filed: 07/08/24 18:59> Lab Data Attestation: I reviewed the patient's lab results. <Ivet Orellana PA-C - Last Filed: 07/08/24 18:59> Result diagrams: 07/08/24 15:26 07/08/24 21:09 <Ivet Orellana PA-C - Last Filed: 07/08/24 18:59> Labs: Lab Results 07/08/24 07/08/24 07/08/24 Range/Units 13:22 15:26 17:06 WBC 14.6 H (4.5-10.0) K/mm3 RBC 5.21 (4.6-6.20) M/mm3 Hgb 15.7 D (14.0-18.0) g/dL Hct 45.7 (42.0-52.0) % MCV 87.7 (80-100) fl MCH 30.1 (26-34) pg MCHC 34.4 (32-36) g/dl RDW 13.0 (11.5-14.5) % Plt Count 286 D (150-375) k/mm3 MPV 9.8 (7.4-10.4) fl Immature Gran % (Auto) 0.5 (0-0.5) % Neut % (Auto) 86.3 H (45.5-73.1) % Lymph % (Auto) 11.2 L (18.3-44.2) % [place] % (Auto) 1.8 L (2.6-8.5) % Eos % (Auto) 0.0 (0-4.4) % Baso % (Auto) 0.2 (0.2-1.2) % Lymph # (Auto) 1.64 (0.9-3.2) K/mm3 [place] # (Auto) 0.3 (0.1-0.6) K/mm3 Eos # (Auto) 0.0 (0-0.3) K/mm3 Baso # (Auto) 0.0 (0.0-0.1) K/mm3 Abs Immat Gran (auto) 0.07 H (0.00-0.031) K/mm3 Absolute Neuts (auto) 12.6 H (1.3-6.7) K/mm3 Absolute Nucleated RBC 0.000 (0.0-0.012) K/mm3 Nucleated RBC % 0.0 (0.0-0.2) % Methemoglobin 0.3 (0-1.5) %THb Sodium 139 (137-145) mmol/L Potassium 4.9 (3.4-5.0) mmol/L Chloride 102 (98-107) mmol/L Carbon Dioxide 6 L (22-30) mmol/L Anion Gap 31 H (4-12) mmol/L BUN 30 H D (9-20) mg/dL Creatinine 1.60 H (0.7-1.3) mg/dL Estim Creat Clear Calc 55 ml/min Estimated GFR 49 L (59 - ) Glucose 439 H (65-110) mg/dL POC Capillary Glucose 386 H (65-105) mg/dl Hemoglobin A1c 12.9 H (<5.7) % Calcium 10.0 (8.4-10.2) mg/dL Phosphorus 5.5 H (2.5-4.5) mg/dL Magnesium 2.4 H (1.6-2.3) mg/dL Total Bilirubin 1.3 (0.2-1.3) mg/dL AST 19 (17-59) U/L ALT 23 (6-50) U/L Alkaline Phosphatase 100 (38-126) U/L Total Protein 8.0 (6.3-8.2) g/dL Albumin 5.1 (3.5-5.1) g/dL Beta-Hydroxybutyrate/Acetoacetate 12.50 H (0.02-0.27) mmol/L 07/08/ Range/Units 17:56 WBC (4.5-10.0) K/mm3 RBC (4.6-6.20) M/mm3 Hgb (14.0-18.0) g/dL Hct (42.0-52.0) % MCV (80-100) fl MCH (26-34) pg MCHC (32-36) g/dl RDW (11.5-14.5) % Plt Count (150-375) k/mm3 MPV (7.4-10.4) fl Immature Gran % (Auto) (0-0.5) % Neut % (Auto) (45.5-73.1) % Lymph % (Auto) (18.3-44.2) % [place] % (Auto) (2.6-8.5) % Eos % (Auto) (0-4.4) % Baso % (Auto) (0.2-1.2) % Lymph # (Auto) (0.9-3.2) K/mm3 [place] # (Auto) (0.1-0.6) K/mm3 Eos # (Auto) (0-0.3) K/mm3 Baso # (Auto) (0.0-0.1) K/mm3 Abs Immat Gran (auto) (0.00-0.031) K/mm3 Absolute Neuts (auto) (1.3-6.7) K/mm3 Absolute Nucleated RBC (0.0-0.012) K/mm3 Nucleated RBC % (0.0-0.2) % Methemoglobin (0-1.5) %THb Sodium (137-145) mmol/L Potassium (3.4-5.0) mmol/L Chloride (98-107) mmol/L Carbon Dioxide (22-30) mmol/L Anion Gap (4-12) mmol/L BUN (9-20) mg/dL Creatinine (0.7-1.3) mg/dL Estim Creat Clear Calc ml/min Estimated GFR (59 - ) Glucose (65-110) mg/dL POC Capillary Glucose 345 H (65-105) mg/dl Hemoglobin A1c (<5.7) % Calcium (8.4-10.2) mg/dL Phosphorus (2.5-4.5) mg/dL Magnesium (1.6-2.3) mg/dL Total Bilirubin (0.2-1.3) mg/dL AST (17-59) U/L ALT (6-50) U/L Alkaline Phosphatase (38-126) U/L Total Protein (6.3-8.2) g/dL Albumin (3.5-5.1) g/dL Beta-Hydroxybutyrate/Acetoacetate (0.02-0.27) mmol/L <Ivet Orellana PA-C - Last Filed: 07/08/24 18:59> Lab Results 07/08/24 07/08/24 07/08/24 Range/Units 13:22 15:26 17:06 WBC 14.6 H (4.5-10.0) K/mm3 RBC 5.21 (4.6-6.20) M/mm3 Hgb 15.7 D (14.0-18.0) g/dL Hct 45.7 (42.0-52.0) % MCV 87.7 (80-100) fl MCH 30.1 (26-34) pg MCHC 34.4 (32-36) g/dl RDW 13.0 (11.5-14.5) % Plt Count 286 D (150-375) k/mm3 MPV 9.8 (7.4-10.4) fl Immature Gran % (Auto) 0.5 (0-0.5) % Neut % (Auto) 86.3 H (45.5-73.1) % Lymph % (Auto) 11.2 L (18.3-44.2) % [place] % (Auto) 1.8 L (2.6-8.5) % Eos % (Auto) 0.0 (0-4.4) % Baso % (Auto) 0.2 (0.2-1.2) % Lymph # (Auto) 1.64 (0.9-3.2) K/mm3 [place] # (Auto) 0.3 (0.1-0.6) K/mm3 Eos # (Auto) 0.0 (0-0.3) K/mm3 Baso # (Auto) 0.0 (0.0-0.1) K/mm3 Abs Immat Gran (auto) 0.07 H (0.00-0.031) K/mm3 Absolute Neuts (auto) 12.6 H (1.3-6.7) K/mm3 Absolute Nucleated RBC 0.000 (0.0-0.012) K/mm3 Nucleated RBC % 0.0 (0.0-0.2) % Methemoglobin 0.3 (0-1.5) %THb Sodium 139 (137-145) mmol/L Potassium 4.9 (3.4-5.0) mmol/L Chloride 102 (98-107) mmol/L Carbon Dioxide 6 L (22-30) mmol/L Anion Gap 31 H (4-12) mmol/L BUN 30 H D (9-20) mg/dL Creatinine 1.60 H (0.7-1.3) mg/dL Estim Creat Clear Calc 55 ml/min Estimated GFR 49 L (59 - ) Glucose 439 H (65-110) mg/dL POC Capillary Glucose 386 H (65-105) mg/dl Hemoglobin A1c 12.9 H (<5.7) % Calcium 10.0 (8.4-10.2) mg/dL Phosphorus 5.5 H (2.5-4.5) mg/dL Magnesium 2.4 H (1.6-2.3) mg/dL Total Bilirubin 1.3 (0.2-1.3) mg/dL AST 19 (17-59) U/L ALT 23 (6-50) U/L Alkaline Phosphatase 100 (38-126) U/L Total Protein 8.0 (6.3-8.2) g/dL Albumin 5.1 (3.5-5.1) g/dL Beta-Hydroxybutyrate/Acetoacetate 12.50 H (0.02-0.27) mmol/L 07/08/24 Range/Units 17:56 WBC (4.5-10.0) K/mm3 RBC (4.6-6.20) M/mm3 Hgb (14.0-18.0) g/dL Hct (42.0-52.0) % MCV (80-100) fl MCH (26-34) pg MCHC (32-36) g/dl RDW (11.5-14.5) % Plt Count (150-375) k/mm3 MPV (7.4-10.4) fl Immature Gran % (Auto) (0-0.5) % Neut % (Auto) (45.5-73.1) % Lymph % (Auto) (18.3-44.2) % [place] % (Auto) (2.6-8.5) % Eos % (Auto) (0-4.4) % Baso % (Auto) (0.2-1.2) % Lymph # (Auto) (0.9-3.2) K/mm3 [place] # (Auto) (0.1-0.6) K/mm3 Eos # (Auto) (0-0.3) K/mm3 Baso # (Auto) (0.0-0.1) K/mm3 Abs Immat Gran (auto) (0.00-0.031) K/mm3 Absolute Neuts (auto) (1.3-6.7) K/mm3 Absolute Nucleated RBC (0.0-0.012) K/mm3 Nucleated RBC % (0.0-0.2) % Methemoglobin (0-1.5) %THb Sodium (137-145) mmol/L Potassium (3.4-5.0) mmol/L Chloride (98-107) mmol/L Carbon Dioxide (22-30) mmol/L Anion Gap (4-12) mmol/L BUN (9-20) mg/dL Creatinine (0.7-1.3) mg/dL Estim Creat Clear Calc ml/min Estimated GFR (59 - ) Glucose (65-110) mg/dL POC Capillary Glucose 345 H (65-105) mg/dl Hemoglobin A1c (<5.7) % Calcium (8.4-10.2) mg/dL Phosphorus (2.5-4.5) mg/dL Magnesium (1.6-2.3) mg/dL Total Bilirubin (0.2-1.3) mg/dL AST (17-59) U/L ALT (6-50) U/L Alkaline Phosphatase (38-126) U/L Total Protein (6.3-8.2) g/dL Albumin (3.5-5.1) g/dL Beta-Hydroxybutyrate/Acetoacetate (0.02-0.27) mmol/L <Demarcus Patton MD - Last Filed: 07/08/24 22:30> ABG Data ABG results: 07/08/24 17:06 Puncture Site Right brachial ABG pH 7.202 L* ABG pCO2 13.9 L* ABG pO2 121.5 H ABG PO2/FiO2 Ratio 5.79 ABG HCO3 5.3 L ABG O2 Saturation 97.8 ABG O2 Content 18.8 ABG Base Excess -20.1 A-a Gradient 70.4 Oxyhemoglobin 96.8 Carboxyhemoglobin 0.8 Reduced Hemoglobin 2.1 Total Hemoglobin 13.7 O2 Delivery Device Not Reportable O2 Liters/Min Not Reportable FiO2 21 <Ivet Orellana PA-C - Last Filed: 07/08/24 18:59> 07/08/24 17:06 Puncture Site Right brachial ABG pH 7.202 L* ABG pCO2 13.9 L* ABG pO2 121.5 H ABG PO2/FiO2 Ratio 5.79 ABG HCO3 5.3 L ABG O2 Saturation 97.8 ABG O2 Content 18.8 ABG Base Excess -20.1 A-a Gradient 70.4 Oxyhemoglobin 96.8 Carboxyhemoglobin 0.8 Reduced Hemoglobin 2.1 Total Hemoglobin 13.7 O2 Delivery Device Not Reportable O2 Liters/Min Not Reportable FiO2 21 <Demarcus Patton MD - Last Filed: 07/08/24 22:30> Imaging Data Radiologist's impression: ITS Impressions Abdomen/Pelvis CT 07/08/24 17:33 IMPRESSION: Prominent urinary bladder distention, extending almost as high as the umbilicus Small sliding hiatal hernia, distal esophageal wall thickening suggesting esophagitis Normal appendix ITS Impressions Abdomen/Pelvis CT 07/08/24 17:33 IMPRESSION: Prominent urinary bladder distention, extending almost as high as the umbilicus Small sliding hiatal hernia, distal esophageal wall thickening suggesting esophagitis Normal appendix <MATTHEW Carvajal Last Filed: 07/08/24 18:59> Critical Care Time Critical Care Time Critical Care Time: Yes <MATTHEW Carvajal Last Filed: 07/08/24 18:59> Total Critical Care Time: 35 <MATTHEW Carvajal Last Filed: 07/08/24 18:59> Discharge Plan Discharge Clinical Impression: Acute kidney injury DKA (diabetic ketoacidosis) Qualifiers: Diabetes mellitus type: type 2 Diabetes mellitus complication detail: without coma Qualified Code(s): E11.10 - Type 2 diabetes mellitus with ketoacidosis without coma <Ivet Orellana PA-C - Last Filed: 07/08/24 18:59> Patient Disposition: Still a Patient <MATTHEW Carvajal Last Filed: 07/08/24 18:59> Condition: Serious <MATTHEW Carvajal Last Filed: 07/08/24 18:59>
[2024-07-08] MEDS: SODIUM CHLORIDE 0.9% IV 1,000 ML 999 ML IV CONT ×5 (15:29→21:30)
[2024-07-08 15:32] LABS: Basophils Percent Auto 0.2 % (0.2-1.2); Hematocrit 45.7 % (42.0-52.0); Hemoglobin 15.7 g/dL (14.0-18.0); Immature Granulocyte Absolute 0.07 K/mm3 (0.00-0.031); Immature Granulocyte Percent A 0.5 % (0-0.5); Lymphocytes Absolute Auto 1.64 K/mm3 (0.9-3.2); Lymphocytes Percent Auto 11.2 % (18.3-44.2); Mean Corpuscular HGB Conc 34.4 g/dl (32-36); Mean Corpuscular Hemoglobin 30.1 pg (26-34); Mean Corpuscular Volume 87.7 fl (80-100); Mean Platelet Volume 9.8 fl (7.4-10.4); Monocytes Absolute Auto 0.3 K/mm3 (0.1-0.6); Monocytes Percent Auto 1.8 % (2.6-8.5); Neutrophils Absolute Auto 12.6 K/mm3 (1.3-6.7); Neutrophils Percent Auto 86.3 % (45.5-73.1); Platelet Count Result 286 k/mm3 (150-375); Red Blood Count 5.21 M/mm3 (4.6-6.20); White Blood Count 14.6 K/mm3 (4.5-10.0)
[2024-07-08 15:42] LABS: Alanine Aminotransferase 23 U/L (6-50); Albumin Level 5.1 g/dL (3.5-5.1); Alkaline Phosphatase 100 U/L (38-126); Anion Gap 31 mmol/L (4-12); Aspartate Amino Transferase 19 U/L (17-59); Bilirubin,Total 1.3 mg/dL (0.2-1.3); Blood Urea Nitrogen 30 mg/dL (9-20); Carbon Dioxide 6 mmol/L (22-30); Chloride 102 mmol/L (98-107); Estimated CRCL calculation 55 ml/min; Estimated Glomerular Filt Rate 49; Glucose 439 mg/dL (65-110); Magnesium 2.4 mg/dL (1.6-2.3); Phosphorus 5.5 mg/dL (2.5-4.5); Potassium 4.9 mmol/L (3.4-5.0); Sodium 139 mmol/L (137-145)
[2024-07-08 16:07] LABS: Hemoglobin A1C 12.9 % (<5.7)
[2024-07-08] MEDS: INSULIN HUMAN REGULAR (*BKC) 100 UNITS in SODIUM CHLORIDE 0.9% IV 99 ML 8.85 UNITS IV CONT (16:40)
[2024-07-08 17:12] LABS: Alveolar/Arterial O2 Gradient 70.4 mmHg; Base Excess ABG -20.1 mEq/l (+/-2.0); Carboxyhemoglobin 0.8 % THb (0-2.0); Fractional Inspired Oxygen 21 %; HCO3 ABG 5.3 mEq/l (22.0-26.0); Methemoglobin ABG 0.3 %THb (0-1.5); Oxygen Content ABG 18.8 %vol (16.0-22.0); Oxygen Saturation ABG 97.8 % (95.0-100.0); Oxyhemoglobin 96.8 % THb (90.0-100.0); PO2 ABG 121.5 mmHg (80.0-100.0); PO2 FiO2 Ratio Arterial Blood 5.79 %; Reduced Hemoglobin 2.1 %THb (0-5.0); Total Hemoglobin 13.7 g/dL (12.0-18.0)
[2024-07-08 17:14] LABS: PCO2 ABG 13.9 mmHg (35.0-45.0); Site Drawn RIGHT BRACHIAL; pH ABG 7.202 (7.350-7.450)
[2024-07-08 17:59] LABS: Glucose Point of Care 345 mg/dl (65-105)
--- NOTE | 2024-07-08 18:08 | ECG_ITS ---
Test Date: 2024-07-08 18:59:56 Measurements Intervals [place] Rate: 141 P: 61 SD: 172 QRS: 31 QRSD: 88 T: 53 QT: 346 QTc: 531 Interpretive Statements SINUS TACHYCARDIA, POSSIBLE ATRIAL FLUTTER NONSPECIFIC T-WAVE ABNORMALITY ABNORMAL RHYTHM ECG No previous ECG available for comparison Electronically Signed On 07-08-2024 21:05:54 [employer] SAL[employer]AGER by Edd Burgos M.D.
[2024-07-08] MEDS: METOCLOPRAMIDE HCL INJ 10 MG/2 ML VIAL IV PUSH (18:09)
[2024-07-08 18:30] LABS: Add Urine Microscopic? YES; Appearance Urine Clear (Clear); Bacteria Urine None Seen /hpf; Bilirubin Urine Negative (Negative); Blood Urine Negative (Negative); Color Urine Yellow (Yellow); Glucose Urine UA 3+ mg/dL (Negative); Ketones Urine 4+ mg/dL (Negative); Leukocyte Esterase Ur Negative LEU/UL (Negative); Nitrate Urine Negative (Negative); Non Pathogenic Casts 0-2; Protein Urine 1+ mg/dL (Negative); RBC Urine 0-2 /hpf (0-2); Specific Grav Ur 1.041 (1.001-1.035); Squamous Epithelial Cell Urine None Seen /hpf (Few); Urobilinogen Urine 0.2 mg/dL (<2.0); WBC Urine 0-5 /hpf (0-3)
[2024-07-08 19:22] LABS: Glucose Point of Care 236 mg/dl (65-105)
[2024-07-08] MEDS: PANTOPRAZOLE SODIUM IV 40 MG VIAL IV PUSH (19:40)
--- NOTE | 2024-07-08 19:55 | ADMGEN ---
This patient, Shane Wheeler, was admitted to Intensive Care Unit-4. Patient/family oriented to hospital policies and general routines including ID bracelet, bed and alarms, visiting hours, pain management, procedures, bathroom and other care routines, personal items, smoking policy, room service/diet, and visiting hours. Information on how to activate the Rapid Response Team has been discussed. Patient/Family are encouraged to report perceived risks to care and to ask questions if they do not understand what they are told or what they should do.
[2024-07-08 20:13] LABS: Glucose Point of Care 250 mg/dl (65-105)
[2024-07-08] MEDS: INSULIN HUMAN REGULAR (*BKC) 100 UNITS in SODIUM CHLORIDE 0.9% IV 99 ML 10.85 UNITS IV CONT (20:36)
[2024-07-08] MEDS: DEXTROSE 5%/0.45% SOD CHL 1,000 ML 150 ML IV CONT (20:38)
[2024-07-08] MEDS: ONDANSETRON INJ 4 MG/2 ML VIAL IV PUSH (21:16)
[2024-07-08 21:30] LABS: Anion Gap 22 mmol/L (4-12); Blood Urea Nitrogen 27 mg/dL (9-20); Calcium 9.1 mg/dL (8.4-10.2); Carbon Dioxide 9 mmol/L (22-30); Chloride 114 mmol/L (98-107); Estimated CRCL calculation 67 ml/min; Estimated Glomerular Filt Rate > 60; Glucose 227 mg/dL (65-110); Magnesium 2.3 mg/dL (1.6-2.3); Phosphorus 2.4 mg/dL (2.5-4.5); Potassium 4.2 mmol/L (3.4-5.0); Sodium 145 mmol/L (137-145)
[2024-07-08 21:32] LABS: Hemoglobin A1C 12.8 % (<5.7)
[2024-07-08] MEDS: KCL 20 MEQ/D5/0.45% SOD CHL 1,000 ML 150 ML IV CONT (21:41)
[2024-07-08 22:13] LABS: Glucose Point of Care 269 mg/dl (65-105)
[2024-07-08] MEDS: SODIUM CHLORIDE 0.9% IV 1,000 ML 150 ML IV CONT (22:33)
--- NOTE | 2024-07-08 22:50 | PM.IMHP ---
H&P: HPI History of Present Illness Date/Time: 07/08/24 22:50 Chief Complaint: Nausea and vomiting Narrative: This is a 39-year-old male with past medical history significant for type 2 diabetes mellitus, patient presents to the emergency room with 2-3 days of abdominal pain, nausea, vomiting, body aches and pains, generalized malaise, fatigue, patient had ran out of his insulin and was skipping doses to stretch it out. Preliminary workup was significant for beta hydroxybutyrate 12.5. Patient has been started on DKA protocol and admitted to ICU. EXAMINATION: CT abdomen pelvis w con DATE: 07/08/2024 17:06 INDICATION: Abdominal pain, vomiting TECHNIQUE: Computed tomography (CT) of the abdomen and pelvis was performed with 100 CC Omnipaque 350 intravenous contrast. Automated exposure control and iterative reconstruction technique were employed. Exam dose: 580.61 mGy-cm total exam DLP. COMPARISON: None. FINDINGS: The lung bases are clear. Normal heart size. No pericardial or pleural effusion. Small sliding hiatal hernia, thickening of the distal esophageal wall, possibly due to esophagitis. The liver, gallbladder, bile ducts, pancreas, pancreatic duct and spleen appear normal. Normal morphology of the adrenal glands. No renal mass lesion or urinary tract calculus or hydroureteronephrosis. Normal caliber of the abdominal aorta. No intraperitoneal or retroperitoneal or pelvic mass lesion or adenopathy or ascites. The urinary bladder is distended, extending almost as high as the level of the umbilicus. No bladder wall thickening. Mild prostate enlargement. The seminal vesicles are unremarkable. Normal appendix. No bowel obstruction or intraperitoneal free air. Included skeletal structures are unremarkable IMPRESSION: Prominent urinary bladder distention, extending almost as high as the umbilicus Small sliding hiatal hernia, distal esophageal wall thickening suggesting esophagitis Normal appendix XR chest 1V portable DATE: 07/08/2024 18:43 INDICATION: Leukocytosis TECHNIQUE: Portable AP chest on 07/08/2024 at 1840 hours COMPARISON: [address] abdomen pelvis FINDINGS: Normal heart size. No hilar or mediastinal enlargement. No pulmonary consolidation, pleural effusion, pulmonary vascular congestion or pneumothorax is evident. Included skeletal structures are unremarkable. IMPRESSION: When viewed in conjunction with the CT abdomen pelvis performed on 07/08/2024 at 1554 hours, no active cardiopulmonary disease is noted Review of Systems Review of Systems: Nausea, vomiting, abdominal pain PMFSH Past Medical History Medical History Depression Eczema Erectile dysfunction Type 2 diabetes mellitus Surgical History Surgical History History of strabismus surgery In childhood Family History Family History (Updated 07/08/24 @ 21:56 by Anita Curry RN) Grandparent Skin cancer Breast cancer Peripheral vascular disease Lung cancer Mother Unknown family medical history Estranged from the patient Substance abuse Father Unknown family medical history Estranged from the patient Social History Social History Social History: The patient lives with his . They have been since 2021. They do not have any children. He is a lifelong nonsmoker. He drinks alcohol approximately once a month in in moderation. He works for a local [employer]. He denies illicit substance use. Code status: Full code Surrogate decision maker: Smoking status: Never smoker Second hand tobacco smoke exposure: No Alcohol intake: former Drinks per week: 5 Substance use: current Substance use type: marijuana Do You Feel Safe in your Home?: Yes Lack of Transportation: No Lack of Food: Never True Current Housing: I Have Housing Concerned About Future Housing: No Difficulty Paying Gas/Electric Bills: No Difficulty Paying for Meds: No Currently Unemployed: No Education: Bachelor's Degree Difficulty w/ Childcare or Family Care: No Spiritual care concerns: Yes Meds Home Medications and Allergies Home Medications ?Medication ?Instructions ?Recorded ?Confirmed ?Type flash glucose sensor (FreeStyle #1 ea 12/03/20 07/08/24 Rx Nando 14 Day Sensor kit) duloxetine 60 mg capsule,delayed 60 mg PO DAILY #30 caps 08/09/22 07/08/24 Rx release insulin glargine-yfgn 100 unit/mL 50 unit (0.5 mL) subcut DAILY #1 08/09/22 07/08/24 Rx (3 mL) subcutaneous pen (Semglee pen (insulin glargine-yfgn) Pen) insulin lispro 200 unit/mL (3 mL) 5 unit (0.025 mL) subcut TID #6 mL 08/09/22 07/08/24 Rx subcutaneous pen (Humalog KwikPen U-200 Insulin) metoclopramide HCl 10 mg tablet 10 mg PO BID PRN Nausea #30 tabs 08/09/22 07/08/24 Rx buspirone 10 mg tablet 10 mg PO TID 07/08/24 07/08/24 History dextroamphetamine-amphetamine 10 20 mg PO DAILY 07/08/24 07/08/24 History mg tablet fexofenadine 180 mg tablet 180 mg PO DAILY PRN seasonal 07/08/24 07/08/24 History (Aller-Fex) allergies insulin lispro 100 unit/mL See Rx Instructions continuous 07/08/24 07/08/24 History subcutaneous solution (Humalog subcutaneous infusion .COMPLEX DM1 U-100 Insulin) Allergies Allergy/AdvReac Type Severity Reaction Status Date / Time No Known Allergies Allergy Verified 07/08/24 15:44 Vital Signs Vital Signs - 24 hr 07/08/24 13:25 07/08/24 15:31 07/08/24 16:01 Temperature 97.5 F L Pulse Rate 127 H 131 H 133 H Respiratory Rate 17 24 H 22 H Blood Pressure 108/73 112/83 140/90 Pulse Oximetry 100 100 100 Oxygen Delivery Room Air 07/08/24 16:31 07/08/24 18:09 07/08/24 18:31 Temperature Pulse Rate 130 H 137 H 137 H Respiratory Rate 17 23 H 17 Blood Pressure 131/87 140/82 121/65 Pulse Oximetry 100 100 100 Oxygen Delivery Exam Narrative: Patient is laying in bed Const: General: comfortable, no acute distress, well developed, alert, awake, ill appearing acutely, tired appearing and average body habitus Nutritional Appearance: average body habitus Orientation/consciousness: patient oriented x3 HENMT: Head: normal to inspection, normocephalic and atraumatic Ears: hearing grossly normal bilaterally Face/Nose/Sinus: normal facial exam Face and sinus: normal facial exam Eyes: General: appearance normal, both eyes and all related structures Pupils: Equal, round and reactive pupils present EOM: EOMs intact bilaterally Neck: Neck: full ROM, no lymphadenopathy and no JVD Thyroid: thyroid normal Lymphatic: no lymphadenopathy noted Resp: Effort & Inspection: normal respiratory effort and able to speak in complete sentences Auscultation: clear to auscultation bilaterally Cardio: Jugular venous distension: no JVD Rate: regular rate Rhythm: regular rhythm Heart sounds: S1 normal heart sound present and S2 normal heart sound present GI: GI Palp: Yes Soft to palpation and Yes No hepatosplenomegaly present : General: Yes deferred Skin: Rashes: no rashes Wounds: no wounds Neuro: General: patient oriented x3 and CN's II-XI intact bilaterally Cranial nerves: Yes CN's II-XII intact bilaterally and Yes Equal, round and reactive pupils present Cognition (Neuro): normal cognition Speech: normal speech Gait exam (Neuro): Unable to assess gait Motor exam (neuro): 5/5 motor strength present throughout Extrem: General: normal to inspection, full ROM, no joint enlargement and no pedal edema H&P: Results Labs Labs: Short CBC 07/08/24 Range/Units 15:26 WBC 14.6 H (4.5-10.0) K/mm3 Hgb 15.7 D (14.0-18.0) g/dL Hct 45.7 (42.0-52.0) % Plt Count 286 D (150-375) k/mm3 BMP 07/08/24 07/08/24 15:26 21:09 Sodium 139 145 Potassium 4.9 4.2 Chloride 102 114 H Carbon Dioxide 6 L 9 L BUN 30 H D 27 H Creatinine 1.60 H 1.30 Glucose 439 H 227 H Calcium 10.0 9.1 Liver Function 07/08/24 Range/Units 15:26 Total Bilirubin 1.3 (0.2-1.3) mg/dL AST 19 (17-59) U/L ALT 23 (6-50) U/L Alkaline Phosphatase 100 (38-126) U/L Albumin 5.1 (3.5-5.1) g/dL Urine 07/08/24 Range/Units 18:17 Urine Color Yellow (Yellow) Urine Appearance Clear (Clear) Urine pH 5.0 (5.0-9.0) Ur Specific [place] 1.041 H (1.001-1.035) Urine Protein 1+ H (Negative) mg/dL Urine Glucose (UA) 3+ H (Negative) mg/dL Assessment and Plan Assessment and plan (1) DKA (diabetic ketoacidosis): Qualifiers: Diabetes mellitus complication detail: without coma Diabetes mellitus type: type 2 Qualified Code(s): E11.10 - Type 2 diabetes mellitus with ketoacidosis without coma Code(s): E11.10 - Type 2 diabetes mellitus with ketoacidosis without coma Status: Acute Assessment and Plan: Admit to ICU Patient started on DKA protocol (2) Acute kidney injury: Code(s): N17.9 - Acute kidney failure, unspecified Status: Acute Assessment and Plan: Likely pre renal azotemia Continue to monitor BUN and creatinine strict intake and output Hospitalist MIPS Advance Care Plan I have confirmed that the patient's Advanced Care Plan is present, code status is documented, or surrogate decision maker is listed in patient medical record.: Yes Medication Reconciliation I have utilized all available resources to obtain, update and review the patients current medications (includes all prescriptions, OTC, herbals, cannabis, and nutritional supplements).: Yes
[2024-07-08] MEDS: INSULIN HUMAN REGULAR (*BKC) 100 UNITS in SODIUM CHLORIDE 0.9% IV 99 ML IV CONT (23:14)
[2024-07-08 23:19] LABS: Glucose Point of Care 172 mg/dl (65-105)
[2024-07-08 23:46] LABS: MRSA (PCR) NOT DETECTED (NOT DETECTE)
[2024-07-09] VITALS (11 sets, daily range): BP systolic 107–162; BP diastolic 62–89; PULSE 120–132; RESP 13–20; TEMP 36.6–37.7; O2SAT 97–99
[2024-07-09 00:18] LABS: Glucose Point of Care 180 mg/dl (65-105)
[2024-07-09 01:18] LABS: Anion Gap 11 mmol/L (4-12); Blood Urea Nitrogen 23 mg/dL (9-20); Calcium 8.6 mg/dL (8.4-10.2); Carbon Dioxide 12 mmol/L (22-30); Chloride 118 mmol/L (98-107); Estimated CRCL calculation 78 ml/min; Estimated Glomerular Filt Rate > 60; Glucose 190 mg/dL (65-110); Sodium 141 mmol/L (137-145)
[2024-07-09 01:28] LABS: Glucose Point of Care 217 mg/dl (65-105)
[2024-07-09] MEDS: METOCLOPRAMIDE HCL INJ 10 MG/2 ML VIAL IV PUSH (02:25)
[2024-07-09] MEDS: SODIUM CHLORIDE 0.9% IV 1,000 ML 999 ML IV CONT (02:30)
[2024-07-09] MEDS: LORazepam INJ (*CRX) 2 MG/ML VIAL 1 MG IV PUSH (02:35)
[2024-07-09 02:40] LABS: Glucose Point of Care 212 mg/dl (65-105)
[2024-07-09 03:28] LABS: Glucose Point of Care 208 mg/dl (65-105)
[2024-07-09 04:29] LABS: Anion Gap 12 mmol/L (4-12); Blood Urea Nitrogen 21 mg/dL (9-20); Calcium 8.3 mg/dL (8.4-10.2); Carbon Dioxide 13 mmol/L (22-30); Chloride 117 mmol/L (98-107); Estimated CRCL calculation 86 ml/min; Estimated Glomerular Filt Rate > 60; Glucose 232 mg/dL (65-110); Sodium 142 mmol/L (137-145)
[2024-07-09 04:34] LABS: Glucose Point of Care 242 mg/dl (65-105)
[2024-07-09] MEDS: INSULIN HUMAN REGULAR (*BKC) 100 UNITS in SODIUM CHLORIDE 0.9% IV 99 ML IV CONT (04:49)
[2024-07-09 05:18] LABS: Add Urine Microscopic? YES; Appearance Urine Clear (Clear); Bacteria Urine None Seen /hpf; Bilirubin Urine Negative (Negative); Blood Urine Negative (Negative); Color Urine Yellow (Yellow); Glucose Urine UA 3+ mg/dL (Negative); Ketones Urine 4+ mg/dL (Negative); Leukocyte Esterase Ur Negative LEU/UL (Negative); Nitrate Urine Negative (Negative); Non Pathogenic Casts 0-2; Protein Urine 1+ mg/dL (Negative); RBC Urine 0-2 /hpf (0-2); Specific Grav Ur 1.044 (1.001-1.035); Squamous Epithelial Cell Urine None Seen /hpf (Few); Urobilinogen Urine 0.2 mg/dL (<2.0); WBC Urine 0-5 /hpf (0-3)
[2024-07-09] MEDS: KCL 20 MEQ/D5/0.45% SOD CHL 1,000 ML 150 ML IV CONT ×2 (05:20→08:41)
[2024-07-09 05:38] LABS: Glucose Point of Care 267 mg/dl (65-105)
[2024-07-09 06:36] LABS: Glucose Point of Care 279 mg/dl (65-105)
[2024-07-09 07:34] LABS: Glucose Point of Care 269 mg/dl (65-105)
[2024-07-09 08:29] LABS: Anion Gap 11 mmol/L (4-12); Blood Urea Nitrogen 20 mg/dL (9-20); Calcium 8.4 mg/dL (8.4-10.2); Carbon Dioxide 15 mmol/L (22-30); Chloride 118 mmol/L (98-107); Estimated CRCL calculation 107 ml/min; Estimated Glomerular Filt Rate > 60; Glucose 234 mg/dL (65-110); Potassium 3.7 mmol/L (3.4-5.0); Sodium 144 mmol/L (137-145)
[2024-07-09 08:39] LABS: Glucose Point of Care 215 mg/dl (65-105)
[2024-07-09] MEDS: ENOXAPARIN 40 MG/0.4 ML SYRINGE SUB-Q (08:42)
[2024-07-09] MEDS: PANTOPRAZOLE SODIUM IV 40 MG VIAL IV PUSH ×2 (08:43→20:08)
--- NOTE | 2024-07-09 08:45 | P.CONIN_ITS ---
Assessment and Plan Assessment and plan (1) DKA (diabetic ketoacidosis): Qualifiers: Diabetes mellitus complication detail: without coma Diabetes mellitus type: type 2 Qualified Code(s): E11.10 - Type 2 diabetes mellitus with ketoacidosis without coma Code(s): E11.10 - Type 2 diabetes mellitus with ketoacidosis without coma Status: Acute Assessment and Plan: 07/08: Patient presented with nausea, vomiting, abdominal pain, confusion. Was found to have elevated blood sugars, elevated beta hydroxybutyrate, elevated anion gap, urine analysis showed increased urinary proteins, ketones and glucose. -patient was given a total of 5 L of IV fluid bolus in the ER and ICU and was started on insulin infusion per DKA protocol along with the fluids that go with it -continue insulin infusion -CO2 remains low, and blood sugars are elevated -will transition once anion gap and CO2 improves (2) Acute kidney injury: Code(s): N17.9 - Acute kidney failure, unspecified Status: Acute Assessment and Plan: Patient presented with acute kidney injury which could be related to diabetic ketoacidosis, hypovolemia due to nausea and vomiting -creatinine on admission was 1.60 -patient has had adequate IV fluids with improved creatinine to 0.90 this morning on 07/09 -urine output has been adequate -continue to monitor urine output, renal function electrolytes (3) Tachycardia: Code(s): R00.0 - Tachycardia, unspecified Status: Acute (4) Long-term insulin use in type 2 diabetes: Code(s): E11.9 - Type 2 diabetes mellitus without complications; 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 Status: Acute Assessment and Plan: Hemoglobin A1c was 12.8 this admission -natural resources extension educator and dietitian to evaluate the patient -patient may have to follow with manager shipping post discharge (5) Depression: Code(s): F32.9 - Major depressive disorder, single episode, unspecified Status: Acute Assessment and Plan: Patient with history of depression, on buspirone, duloxetine at home (6) Esophagitis: Code(s): K20.90 - Esophagitis, unspecified without bleeding Status: Acute Assessment and Plan: Started patient on Protonix Plan DVT prophylaxis: Lovenox Stress ulcer prophylaxis: Protonix Nutrition: NPO except ice Code Status: Full code Critical Care Time Spent: 47 minutes Due to a high probability of clinically significant, life threatening deterioration, the patient required my highest level of preparedness to intervene emergently and I personally spent this critical care time directly and personally managing the patient. This critical care time included obtaining a history; examining the patient; pulse oximetry; ordering and review of studies; arranging urgent treatment with development of a management plan; evaluation of patient's response to treatment; frequent reassessment; and discussions with other providers. It was exclusive of separately billable procedures and treating other patients and teaching time. Please see Assessment and Plan section and the rest of the note for further information on patient assessment and treatment This dictation may have been done utilizing a voice recognition system. Attempts have been made to correct errors. However, there may be uncorrected grammatical, spelling, and recognitions errors present. Field Assistant Consult Note Consult date: 07/09/24 Reason for consult: Diabetic ketoacidosis, nausea, vomiting, abdominal pain, confusion HPI: Shane Wheeler is a 39 year old male with past medical history of depression, eczema, erectile dysfunction, insulin-dependent type 2 diabetes presented the ER on 07/08/2024 with complaints of nausea, vomiting, abdominal pain, confusion. Patient stated that he was running out of his insulin so has been rationing his insulin at home and possibly not taking appropriate a amounts. According the records on the patient he has not been taking his prescribed does for last few days. In the ER his blood sugars were found to be 439, anion gap of 31, elevated beta hydroxybutyrate, urine was positive for proteins, ketones and glucose. Patient was tachycardic in the 140s, was given a total of 5 L IV fluids including ER and ICU. Was started on insulin infusion per DKA protocol along with the IV fluids that go with it. Chest x-ray will did not show any acute cardiopulmonary disease. CT scan of the abdomen and pelvis showed prominent urinary bladder distension extending almost as the umbilicus. Small sliding hiatal hernia, distal esophageal wall thickening suggesting esophagitis, normal appendix. Patient was transferred to the ICU for further management Patient seen and examined in the ICU this morning, is awake, alert, oriented, denies any chest pain, shortness on breath, abdominal pain, nausea vomiting at this time. Hemodynamically stable, remains tachycardic in the 120s. Afebrile, urine output has been adequate. Denies any smoking, drinks alcohol occasionally, denies any illicit drug use. Review of Systems 2 Review of Systems: All systems reviewed & are unremarkable except as noted in HPI and below PMFSH Past Medical History Medical History Depression Eczema Erectile dysfunction Type 2 diabetes mellitus Surgical History Surgical History History of strabismus surgery In childhood Family History Family History (Updated 07/08/24 @ 21:56 by Anita Curry RN) Grandparent Skin cancer Breast cancer Peripheral vascular disease Lung cancer Mother Unknown family medical history Estranged from the patient Substance abuse Father Unknown family medical history Estranged from the patient Social History Social History Social History: The patient lives with his . They have been since 2021. They do not have any children. He is a lifelong nonsmoker. He drinks alcohol approximately once a month in in moderation. He works for a [employer] He denies illicit substance use. Code status: Full code Surrogate decision maker: Smoking status: Never smoker Second hand tobacco smoke exposure: No Alcohol intake: former Drinks per week: 5 Substance use: current Substance use type: marijuana Do You Feel Safe in your Home?: Yes Lack of Transportation: No Lack of Food: Never True Current Housing: I Have Housing Concerned About Future Housing: No Difficulty Paying Gas/Electric Bills: No Difficulty Paying for Meds: No Currently Unemployed: No Education: Bachelor's Degree Difficulty w/ Childcare or Family Care: No Spiritual care concerns: Yes Meds Home Medications and Allergies Home Medications ?Medication ?Instructions ?Recorded ?Confirmed ?Type flash glucose sensor (FreeStyle #1 ea 12/03/20 07/08/24 Rx Nando 14 Day Sensor kit) duloxetine 60 mg capsule,delayed 60 mg PO DAILY #30 caps 08/09/22 07/08/24 Rx release insulin glargine-yfgn 100 unit/mL 50 unit (0.5 mL) subcut DAILY #1 08/09/22 07/08/24 Rx (3 mL) subcutaneous pen (Semglee pen (insulin glargine-yfgn) Pen) insulin lispro 200 unit/mL (3 mL) 5 unit (0.025 mL) subcut TID #6 mL 08/09/22 07/08/24 Rx subcutaneous pen (Humalog KwikPen U-200 Insulin) metoclopramide HCl 10 mg tablet 10 mg PO BID PRN Nausea #30 tabs 08/09/22 07/08/24 Rx buspirone 10 mg tablet 10 mg PO TID 07/08/24 07/08/24 History dextroamphetamine-amphetamine 10 20 mg PO DAILY 07/08/24 07/08/24 History mg tablet fexofenadine 180 mg tablet 180 mg PO DAILY PRN seasonal 07/08/24 07/08/24 History (Aller-Fex) allergies insulin lispro 100 unit/mL See Rx Instructions continuous 07/08/24 07/08/24 History subcutaneous solution (Humalog subcutaneous infusion .COMPLEX DM1 U-100 Insulin) Allergies Allergy/AdvReac Type Severity Reaction Status Date / Time No Known Allergies Allergy Verified 07/08/24 15:44 Vital Signs Vital Signs - 24 hr 07/08/24 13:25 07/08/24 15:31 07/08/24 16:01 Temperature 97.5 F L Pulse Rate 127 H 131 H 133 H Respiratory Rate 17 24 H 22 H Blood Pressure 108/73 112/83 140/90 Pulse Oximetry 100 100 100 Oxygen Delivery Room Air 07/08/24 16:31 07/08/24 18:09 07/08/24 18:31 Temperature Pulse Rate 130 H 137 H 137 H Respiratory Rate 17 23 H 17 Blood Pressure 131/87 140/82 121/65 Pulse Oximetry 100 100 100 Oxygen Delivery 07/08/24 20:00 07/08/24 20:00 07/08/24 22:00 Temperature 98.8 F Pulse Rate 141 H 140 H 143 H Respiratory Rate 17 15 Blood Pressure 115/64 121/73 Pulse Oximetry 100 100 Oxygen Delivery 07/08/24 22:00 07/09/24 00:00 07/09/24 00:00 Temperature 99.8 F H Pulse Rate 143 H 132 H 132 H Respiratory Rate 13 Blood Pressure 135/66 Pulse Oximetry 97 Oxygen Delivery 07/09/24 02:00 07/09/24 02:00 07/09/24 04:00 Temperature Pulse Rate 125 H 125 H 128 H Respiratory Rate 15 Blood Pressure 130/72 Pulse Oximetry 99 Oxygen Delivery 07/09/24 04:00 07/09/24 06:00 07/09/24 06:00 Temperature 99.8 F H Pulse Rate 128 H 121 H 121 H Respiratory Rate 15 16 Blood Pressure 135/73 107/66 Pulse Oximetry 99 97 Oxygen Delivery 07/09/24 08:00 07/09/24 08:00 Temperature 97.9 F Pulse Rate 124 H Respiratory Rate 17 Blood Pressure 125/62 Pulse Oximetry 98 Oxygen Delivery Room Air Exam 2 Narrative: General: Pleasant gentleman in no acute distress HEENT:? Pupils equal and reactive, sclera is clear Neck:? Supple Respiratory:? Clear to auscultation bilaterally, no wheezing Cardiac:? S1-S2 normal, sinus tachycardia Abdomen:? Soft, nontender, nondistended, obese, normoactive bowel sounds Extremities:? No edema, palpable pedal pulses Neuro:? Patient is awake, alert, oriented x3, nonfocal, answers to questions appropriately and follows simple commands in all extremities Skin:? No lesions noted Psych:? Normal mentation and affect Results Labs 07/08/24 15:26 07/09/24 08:14 Labs: Short CBC 07/08/24 Range/Units 15:26 WBC 14.6 H (4.5-10.0) K/mm3 Hgb 15.7 D (14.0-18.0) g/dL Hct 45.7 (42.0-52.0) % Plt Count 286 D (150-375) k/mm3 BMP 07/08/24 07/08/24 07/09/24 15:26 21:09 00:53 Sodium 139 145 141 Potassium 4.9 4.2 4.0 Chloride 102 114 H 118 H Carbon Dioxide 6 L 9 L 12 L BUN 30 H D 27 H 23 H Creatinine 1.60 H 1.30 1.10 Glucose 439 H 227 H 190 H Calcium 10.0 9.1 8.6 07/09/24 07/09/24 04:12 08:14 Sodium 142 144 Potassium 4.0 3.7 Chloride 117 H 118 H Carbon Dioxide 13 L 15 L BUN 21 H 20 Creatinine 1.00 0.90 Glucose 232 H 234 H Calcium 8.3 L 8.4 Liver Function 07/08/24 Range/Units 15:26 Total Bilirubin 1.3 (0.2-1.3) mg/dL AST 19 (17-59) U/L ALT 23 (6-50) U/L Alkaline Phosphatase 100 (38-126) U/L Albumin 5.1 (3.5-5.1) g/dL Urine 07/08/24 07/09/24 Range/Units 18:17 05:09 Urine Color Yellow Yellow (Yellow) Urine Appearance Clear Clear (Clear) Urine pH 5.0 6.0 (5.0-9.0) Ur Specific [place] 1.041 H 1.044 H (1.001-1.035) Urine Protein 1+ H 1+ H (Negative) mg/dL Urine Glucose (UA) 3+ H 3+ H (Negative) mg/dL Quality VTE Prophylaxis VTE prophylaxis: pharmacologic ordered Hospitalist MIPS Advance Care Plan I have confirmed that the patient's Advanced Care Plan is present, code status is documented, or surrogate decision maker is listed in patient medical record.: Yes Medication Reconciliation I have utilized all available resources to obtain, update and review the patients current medications (includes all prescriptions, OTC, herbals, cannabis, and nutritional supplements).: Yes
[2024-07-09 09:32] LABS: Glucose Point of Care 232 mg/dl (65-105)
[2024-07-09] MEDS: ALBUMIN HUMAN 5% 25 GM/500 ML BTL IV CONT (09:33)
[2024-07-09 10:31] LABS: Glucose Point of Care 231 mg/dl (65-105)
[2024-07-09 11:32] LABS: Glucose Point of Care 243 mg/dl (65-105)
[2024-07-09 12:40] LABS: Glucose Point of Care 241 mg/dl (65-105)
[2024-07-09 13:04] LABS: Anion Gap 8 mmol/L (4-12); Blood Urea Nitrogen 17 mg/dL (9-20); Calcium 8.4 mg/dL (8.4-10.2); Carbon Dioxide 16 mmol/L (22-30); Chloride 118 mmol/L (98-107); Estimated CRCL calculation 107 ml/min; Estimated Glomerular Filt Rate > 60; Glucose 246 mg/dL (65-110); Potassium 3.6 mmol/L (3.4-5.0); Sodium 142 mmol/L (137-145)
[2024-07-09] MEDS: INSULIN GLARGINE (*BKC) 100 UNITS/ML 50 UNITS SUB-Q (13:37)
[2024-07-09 13:40] LABS: Glucose Point of Care 251 mg/dl (65-105)
[2024-07-09 14:37] LABS: Glucose Point of Care 212 mg/dl (65-105)
[2024-07-09 16:04] LABS: Glucose Point of Care 248 mg/dl (65-105)
[2024-07-09] MEDS: INSULIN ASPART (*BKC) 100 UNITS/ML SUB-Q (16:34)
[2024-07-09] MEDS: SODIUM CHLORIDE 0.9% IV 1,000 ML 70 ML IV CONT ×2 (17:15→23:02)
--- NOTE | 2024-07-09 17:50 | PC.NURSE ---
This patient, Shane Wheeler, was received from [ICU-4] on 07/09/24 at 1740. Patient/family oriented to unit policies and routines
--- NOTE | 2024-07-09 17:51 | PC.NURSE ---
Report given to Iwona BADILLO on 3 med/surg. Pt transferred to room 300 via wheelchair with all belongings. Placed clothing in cabinet and all other personal belongings pt wanted at bedside like his phone and cupola charger insulation.
[2024-07-09 23:04] LABS: Glucose Point of Care 188 mg/dl (65-105)
[2024-07-10 06:00] VITALS: BP 140/83; PULSE 114; RESP 20; TEMP 36.7; O2SAT 99
[2024-07-10 06:43] LABS: Basophils Percent Auto 0.1 % (0.2-1.2); Hematocrit 32.4 % (42.0-52.0); Hemoglobin 11.1 g/dL (14.0-18.0); Immature Granulocyte Absolute 0.02 K/mm3 (0.00-0.031); Immature Granulocyte Percent A 0.2 % (0-0.5); Lymphocytes Absolute Auto 1.95 K/mm3 (0.9-3.2); Lymphocytes Percent Auto 22.4 % (18.3-44.2); Mean Corpuscular HGB Conc 34.3 g/dl (32-36); Mean Corpuscular Hemoglobin 30.2 pg (26-34); Mean Platelet Volume 9.9 fl (7.4-10.4); Monocytes Absolute Auto 0.4 K/mm3 (0.1-0.6); Monocytes Percent Auto 4.1 % (2.6-8.5); Neutrophils Absolute Auto 6.4 K/mm3 (1.3-6.7); Neutrophils Percent Auto 73.2 % (45.5-73.1); Platelet Count Result 194 k/mm3 (150-375); Red Blood Count 3.68 M/mm3 (4.6-6.20); Red Cell Distribution Width 13.2 % (11.5-14.5); White Blood Count 8.7 K/mm3 (4.5-10.0)
[2024-07-10 06:55] LABS: Alanine Aminotransferase 15 U/L (6-50); Albumin Level 3.5 g/dL (3.5-5.1); Alkaline Phosphatase 69 U/L (38-126); Anion Gap 15 mmol/L (4-12); Aspartate Amino Transferase 20 U/L (17-59); Bilirubin,Total 1.7 mg/dL (0.2-1.3); Blood Urea Nitrogen 12 mg/dL (9-20); Calcium 8.3 mg/dL (8.4-10.2); Carbon Dioxide 13 mmol/L (22-30); Chloride 107 mmol/L (98-107); Estimated CRCL calculation 119 ml/min; Estimated Glomerular Filt Rate > 60; Glucose 215 mg/dL (65-110); Magnesium 2.1 mg/dL (1.6-2.3); Phosphorus 2.5 mg/dL (2.5-4.5); Potassium 3.4 mmol/L (3.4-5.0); Sodium 135 mmol/L (137-145)
[2024-07-10 08:01] LABS: Glucose Point of Care 220 mg/dl (65-105)
[2024-07-10] MEDS: INSULIN GLARGINE (*BKC) 100 UNITS/ML 50 UNITS SUB-Q (08:32)
[2024-07-10] MEDS: INSULIN ASPART (*BKC) 100 UNITS/ML SUB-Q ×4 (08:33→21:27)
[2024-07-10] MEDS: PANTOPRAZOLE SODIUM IV 40 MG VIAL IV PUSH ×2 (08:34→21:28)
[2024-07-10] MEDS: SODIUM CHLORIDE 0.9% IV 1,000 ML 70 ML IV CONT ×2 (08:34→23:00)
[2024-07-10] MEDS: ENOXAPARIN 40 MG/0.4 ML SYRINGE SUB-Q (08:34)
--- NOTE | 2024-07-10 10:52 | P.PNIM_ITS ---
Progress Note: A&P Assessment and Plan (1) DKA (diabetic ketoacidosis): Qualifiers: Diabetes mellitus complication detail: without coma Diabetes mellitus type: type 2 Qualified Code(s): E11.10 - Type 2 diabetes mellitus with ketoacidosis without coma Code(s): E11.10 - Type 2 diabetes mellitus with ketoacidosis without coma Status: Acute Assessment and Plan: 07/08: Patient presented with nausea, vomiting, abdominal pain, confusion. Was found to have elevated blood sugars, elevated beta hydroxybutyrate, elevated anion gap, urine analysis showed increased urinary proteins, ketones and glucose. -patient was given a total of 5 L of IV fluid bolus in the ER and ICU and was started on insulin infusion per DKA protocol along with the fluids that go with it -CO2 remains low, and blood sugars are elevated -Anion gap 15 and CO2 13 (2) Acute kidney injury: Code(s): N17.9 - Acute kidney failure, unspecified Status: Acute Assessment and Plan: Patient presented with acute kidney injury which could be related to diabetic ketoacidosis, hypovolemia due to nausea and vomiting -creatinine on admission was 1.60 -patient has had adequate IV fluids with improved creatinine to 0.80 this morning on 07/10 -urine output has been adequate -continue to monitor urine output, renal function electrolytes (3) Tachycardia: Code(s): R00.0 - Tachycardia, unspecified Status: Acute (4) Long-term insulin use in type 2 diabetes: Code(s): E11.9 - Type 2 diabetes mellitus without complications; Z79.4 - terminal supervisor (current) use of insulin Status: Acute Assessment and Plan: Hemoglobin A1c was 12.8 this admission -family educator and dietitian to evaluate the patient -patient will need to follow up with insurance investigator post discharge (5) Depression: Code(s): F32.9 - Major depressive disorder, single episode, unspecified Status: Acute Assessment and Plan: * Patient with history of depression, on buspirone, duloxetine at home (6) Esophagitis: Code(s): K20.90 - Esophagitis, unspecified without bleeding Status: Acute Assessment and Plan: * Started patient on Protonix Subjective Date/time seen: 07/10/24 10:52 Interval history: Patient sitting up in bed. Patient denies feeling hot, dry, shortness of breath, nausea, or vomiting. Patient reports he is feeling better. Patient reports that he has not been to [facility] in a while but goes to [facility] at [facility] in [place], patient unsure of doctors name. Review of Systems Review of Systems: All systems reviewed & are unremarkable except as noted in HPI and below Exam Const: General: comfortable and no acute distress Resp: Effort & Inspection: normal respiratory effort Auscultation: clear to auscultation bilaterally Cardio: Rate: regular rate and tachycardic GI: GI Palp: Yes Soft to palpation Auscultation: normal bowel sounds : Other: Voiding without difficulty Skin: General skin exam: no rashes or lesions noted Neuro: Speech: normal speech Extrem: General: no pedal edema Psych: Mental Status: mental status grossly normal Affect: normal affect Objective Data Vital Signs Vital Signs: Vital Signs - 24 hr 07/09/24 12:00 07/09/24 12:00 07/09/24 12:00 Temperature 98.2 F Pulse Rate 126 H 125 H Respiratory Rate 15 Blood Pressure 149/80 H Pulse Oximetry 97 Oxygen Delivery Room Air 07/09/24 14:00 07/09/24 14:00 07/09/24 16:00 Temperature 97.8 F Pulse Rate 124 H 124 H 125 H Respiratory Rate 17 16 Blood Pressure 142/80 H 145/75 H Pulse Oximetry 98 98 Oxygen Delivery 07/09/24 17:52 07/09/24 22:18 07/10/24 06:00 Temperature 98.6 F 98.4 F 98.1 F Pulse Rate 124 H 122 H 114 H Respiratory Rate 20 20 20 Blood Pressure 154/89 H 162/82 H 140/83 Pulse Oximetry 99 99 99 Oxygen Delivery 07/10/24 08:00 Temperature Pulse Rate Respiratory Rate Blood Pressure Pulse Oximetry Oxygen Delivery Room Air Intake/Output Intake/Output: Intake & Output 07/07/24 07/08/24 07/09/24 07/10/24 23:59 23:59 23:59 23:59 Intake Total 371.7 4273.7 2980 Output Total 3600 1600 Balance 371.7 673.7 1380 Meds/Results Medications: Active Medications Generic Name Dose Route Start Last Admin Trade Name Freq PRN Reason Stop Dose Admin Dextrose 12.5 gm 07/08/24 20:24 Dextrose 50% 25 Gm/50 Ml Syringe IV PUSH PRN PRN Hypoglycemia Protocol Enoxaparin Sodium 40 mg 07/09/24 09:00 07/10/24 08:34 Enoxaparin 40 Mg/0.4 Ml Syringe SUB-Q 40 mg DAILY CHETNA Administration Glucagon 1 mg 07/08/24 20:24 Glucagon For Inj 1 Mg Vial IM PRN PRN Hypoglycemia Protocol Glucose 15 gm 07/08/24 20:24 Glucose Oral Gel 15 Gm Of Glucse In 37.5 Gm Tube PO PRN PRN Hypoglycemia Protocol Dextrose 1,000 mls @ 100 mls/hr 07/08/24 20:24 Dextrose 5% 1,000 Ml IVPB PRN PRN Hypoglycemia Protocol Sodium Chloride 1,000 mls @ 70 mls/hr 07/09/24 15:45 07/10/24 08:34 Normal Saline Iv IV CONT 70 mls/hr .[id number] CHETNA Administration Insulin Aspart 2 - 4 units 07/09/24 21:00 07/09/24 19:56 Insulin Aspart (*Bkc) 100 Units/Ml SUB-Q Not Given HS CHETNA Protocol Insulin Aspart 4 - 8 units 07/09/24 17:00 07/10/24 08:33 Insulin Aspart (*Bkc) 100 Units/Ml SUB-Q 4 units TIDWM CHETNA Administration Protocol Insulin Glargine 50 units 07/09/24 13:25 07/10/24 08:32 Insulin Glargine (*Bkc) 100 Units/Ml SUB-Q 50 units DAILY CHETNA Administration Metoclopramide HCl 10 mg 07/09/24 02:21 07/09/24 02:25 Metoclopramide Hcl Inj 10 Mg/2 Ml Vial IV PUSH 10 mg Q6HR PRN Administration Nausea And Vomiting Ondansetron HCl 4 mg 07/08/24 21:07 07/08/24 21:16 Ondansetron Inj 4 Mg/2 Ml Vial IV PUSH 4 mg Q4H PRN Administration Nausea And Vomiting Pantoprazole Sodium 40 mg 07/09/24 09:00 07/10/24 08:34 Pantoprazole Sodium Iv 40 Mg Vial IV PUSH 40 mg Q12HR CHETNA Administration Radiology Results: ITS Impressions Abdomen/Pelvis CT 07/08/24 17:33 IMPRESSION: Prominent urinary bladder distention, extending almost as high as the umbilicus Small sliding hiatal hernia, distal esophageal wall thickening suggesting esophagitis Normal appendix Chest X-Ray 07/08/24 18:45 IMPRESSION: When viewed in conjunction with the CT abdomen pelvis performed on 07/08/2024 at 1554 hours, no active cardiopulmonary disease is noted Labs Labs: Laboratory Results - last 24 hr 07/09/24 07/09/24 07/09/24 11:30 12:33 12:38 WBC RBC Hgb Hct MCV MCH MCHC RDW Plt Count MPV Immature Gran % (Auto) Neut % (Auto) Lymph % (Auto) [place] % (Auto) Eos % (Auto) Baso % (Auto) Lymph # (Auto) [place] # (Auto) Eos # (Auto) Baso # (Auto) Abs Immat Gran (auto) Absolute Neuts (auto) Absolute Nucleated RBC Nucleated RBC % Sodium 142 Potassium 3.6 Chloride 118 H Carbon Dioxide 16 L Anion Gap 8 BUN 17 Creatinine 0.90 Estim Creat Clear Calc 107 Estimated GFR > 60 Glucose 246 H POC Capillary Glucose 243 H 241 H Calcium 8.4 Phosphorus Magnesium Total Bilirubin AST ALT Alkaline Phosphatase Total Protein Albumin 07/09/24 07/09/24 07/09/24 13:35 14:32 16:03 WBC RBC Hgb Hct MCV MCH MCHC RDW Plt Count MPV Immature Gran % (Auto) Neut % (Auto) Lymph % (Auto) [place] % (Auto) Eos % (Auto) Baso % (Auto) Lymph # (Auto) [place] # (Auto) Eos # (Auto) Baso # (Auto) Abs Immat Gran (auto) Absolute Neuts (auto) Absolute Nucleated RBC Nucleated RBC % Sodium Potassium Chloride Carbon Dioxide Anion Gap BUN Creatinine Estim Creat Clear Calc Estimated GFR Glucose POC Capillary Glucose 251 H 212 H 248 H Calcium Phosphorus Magnesium Total Bilirubin AST ALT Alkaline Phosphatase Total Protein Albumin 07/09/24 07/10/24 07/10/24 19:50 05:43 07:43 WBC 8.7 RBC 3.68 L Hgb 11.1 L D Hct 32.4 L MCV 88.0 MCH 30.2 MCHC 34.3 RDW 13.2 Plt Count 194 MPV 9.9 Immature Gran % (Auto) 0.2 Neut % (Auto) 73.2 H Lymph % (Auto) 22.4 [place] % (Auto) 4.1 Eos % (Auto) 0.0 Baso % (Auto) 0.1 L Lymph # (Auto) 1.95 [place] # (Auto) 0.4 Eos # (Auto) 0.0 Baso # (Auto) 0.0 Abs Immat Gran (auto) 0.02 Absolute Neuts (auto) 6.4 Absolute Nucleated RBC 0.000 Nucleated RBC % 0.0 Sodium 135 L Potassium 3.4 Chloride 107 Carbon Dioxide 13 L Anion Gap 15 H BUN 12 D Creatinine 0.80 Estim Creat Clear Calc 119 Estimated GFR > 60 Glucose 215 H POC Capillary Glucose 188 H 220 H Calcium 8.3 L Phosphorus 2.5 Magnesium 2.1 Total Bilirubin 1.7 H AST 20 ALT 15 Alkaline Phosphatase 69 Total Protein 6.0 L Albumin 3.5 Quality VTE Prophylaxis VTE prophylaxis: pharmacologic ordered
[2024-07-10 11:28] LABS: Glucose Point of Care 219 mg/dl (65-105)
[2024-07-10] MEDS: busPIRone HCL 10 MG TABLET PO ×2 (12:00→21:28)
[2024-07-10 14:00] VITALS: BP 134/78; PULSE 114; RESP 20; TEMP 37.6; O2SAT 99
[2024-07-10 15:10] VITALS: BMI 31.6
[2024-07-10 16:28] LABS: Glucose Point of Care 249 mg/dl (65-105)
[2024-07-10 19:51] LABS: Glucose Point of Care 245 mg/dl (65-105)
[2024-07-10 20:43] VITALS: BP 150/86; PULSE 108; RESP 16; TEMP 36.9; O2SAT 98
[2024-07-11 05:52] VITALS: BP 152/86; PULSE 97; RESP 14; TEMP 36.7; O2SAT 97
[2024-07-11] MEDS: busPIRone HCL 10 MG TABLET PO (06:00)
[2024-07-11 06:30] LABS: Basophils Percent Auto 0.2 % (0.2-1.2); Eosinophils Percent Auto 0.3 % (0-4.4); Hematocrit 31.9 % (42.0-52.0); Hemoglobin 11.2 g/dL (14.0-18.0); Immature Granulocyte Absolute 0.02 K/mm3 (0.00-0.031); Immature Granulocyte Percent A 0.3 % (0-0.5); Lymphocytes Absolute Auto 2.66 K/mm3 (0.9-3.2); Lymphocytes Percent Auto 41.1 % (18.3-44.2); Mean Corpuscular HGB Conc 35.1 g/dl (32-36); Mean Corpuscular Hemoglobin 29.9 pg (26-34); Mean Corpuscular Volume 85.1 fl (80-100); Mean Platelet Volume 9.8 fl (7.4-10.4); Monocytes Absolute Auto 0.4 K/mm3 (0.1-0.6); Monocytes Percent Auto 5.7 % (2.6-8.5); Neutrophils Absolute Auto 3.4 K/mm3 (1.3-6.7); Neutrophils Percent Auto 52.4 % (45.5-73.1); Platelet Count Result 171 k/mm3 (150-375); Red Blood Count 3.75 M/mm3 (4.6-6.20); Red Cell Distribution Width 12.6 % (11.5-14.5); White Blood Count 6.5 K/mm3 (4.5-10.0)
[2024-07-11 06:45] LABS: Alanine Aminotransferase 14 U/L (6-50); Albumin Level 3.1 g/dL (3.5-5.1); Alkaline Phosphatase 66 U/L (38-126); Anion Gap 4 mmol/L (4-12); Aspartate Amino Transferase 19 U/L (17-59); Bilirubin,Total 1.7 mg/dL (0.2-1.3); Blood Urea Nitrogen 10 mg/dL (9-20); Carbon Dioxide 26 mmol/L (22-30); Chloride 105 mmol/L (98-107); Estimated CRCL calculation 137 ml/min; Estimated Glomerular Filt Rate > 60; Glucose 181 mg/dL (65-110); Potassium 2.9 mmol/L (3.4-5.0); Sodium 135 mmol/L (137-145)
[2024-07-11 07:30] LABS: Glucose Point of Care 194 mg/dl (65-105)
[2024-07-11] MEDS: DULoxetine HCL 60 MG CAPSULE.DR PO (08:27)
[2024-07-11] MEDS: SODIUM CHLORIDE 0.9% IV 1,000 ML 70 ML IV CONT (08:27)
[2024-07-11] MEDS: PANTOPRAZOLE SODIUM IV 40 MG VIAL IV PUSH (08:27)
[2024-07-11] MEDS: ENOXAPARIN 40 MG/0.4 ML SYRINGE SUB-Q (08:28)
[2024-07-11] MEDS: INSULIN GLARGINE (*BKC) 100 UNITS/ML 50 UNITS SUB-Q (08:28)
[2024-07-11 11:44] LABS: Glucose Point of Care 171 mg/dl (65-105)
[2024-07-11] MEDS: POTASSIUM CHLORIDE 20 MEQ ER TABLET 40 MEQ PO (11:49)
[2024-07-11] MEDS: ONDANSETRON INJ 4 MG/2 ML VIAL IV PUSH (11:49)
--- NOTE | 2024-07-11 13:00 | P.DS_ITS ---
DS: Admitting Diagnosis Discharge Date 07/11/24 Admitting Diagnosis Nausea and Vomiting DS: Discharge Diagnosis Discharge Diagnosis (1) DKA (diabetic ketoacidosis): Qualifiers: Diabetes mellitus complication detail: without coma Diabetes mellitus type: type 2 Qualified Code(s): E11.10 - Type 2 diabetes mellitus with ketoacidosis without coma Code(s): E11.10 - Type 2 diabetes mellitus with ketoacidosis without coma Status: Acute Assessment and Plan: Patient presented with nausea, vomiting, abdominal pain, confusion. Pt was found to have elevated blood sugars, elevated beta hydroxybutyrate, elevated anion gap, urine analysis showed increased urinary proteins, ketones and glucose, meeting DKA diagnosis. Patient was given a total of 5 L of IV fluid bolus in the ER and ICU and was started on insulin infusion per DKA protocol along with the fluids that go with it. - Blood glucose levels better controlled now, trending less than 200 today. - Pt with an insulin pump and will contact his bellows charger assembler for possible adjustments to improve his blood glucose levels. Pt - A1C was 12.8 and he has been encouraged with diabetic restrictions and insulin adjustment. (2) Acute kidney injury: Code(s): N17.9 - Acute kidney failure, unspecified Status: Acute Assessment and Plan: - Minor and resolved prior to discharge with IVF hydration. (3) Tachycardia: Code(s): R00.0 - Tachycardia, unspecified Status: Acute Assessment and Plan: - Resolved prior to discharge, likely related to DKA. (4) Long-term insulin use in type 2 diabetes: Code(s): E11.9 - Type 2 diabetes mellitus without complications; Z79.4 - supervisor intermediates (current) use of insulin Status: Acute Assessment and Plan: Hemoglobin A1c was 12.8. - Seen by informatics educator and dietitian prior to discharge. -patient to follow up with bellows charger assembler post discharge (5) Depression: Code(s): F32.9 - Major depressive disorder, single episode, unspecified Status: Acute Assessment and Plan: * Patient with history of depression, on buspirone, duloxetine at home. * Home meds resumed. (6) Esophagitis: Code(s): K20.90 - Esophagitis, unspecified without bleeding Status: Acute Assessment and Plan: * Possibly related to nausea and vomiting. * Resolved prior to discharge. Plan Discharge Home on Self Care. DS: Summary Hospital Course Reason for hospitalization: DKA Hospital Course: Patient presented with nausea, vomiting, abdominal pain, confusion. Pt was found to have elevated blood sugars, elevated beta hydroxybutyrate, elevated anion gap, urine analysis showed increased urinary proteins, ketones and glucose, meeting DKA diagnosis. Patient was given a total of 5 L of IV fluid bolus in the ER and ICU and was started on insulin infusion per DKA protocol along with the fluids that go with it. His blood glucose levels are better controlled currently, trending less than 200 today. Pt states he has an insulin pump and will contact his bellows charger assembler for possible adjustments to improve his blood glucose levels. Pt A1C was 12.8 and he has been encouraged with diabetic restrictions and insulin adjustment. Pt states he's been tolerating diet well and wants to go home today, and will contact his bellows charger assembler in AM and make an appointment. Patient had hypokalemia and this was corrected prior to discharge, with all his other labs fairly unremarkable. He's medically stable for discharge with no acute distress noted or reported prior to discharge. Status at Discharge Functional status at discharge: independent ambulation Overall status at discharge: patient is progressing back to baseline Time Spent with Patient Time attestation: Total time spent providing and/or coordinating discharge services: Time spent: Greater than 30 minutes Exam Narrative: General: Pleasant gentleman in no acute distress HEENT:? Pupils equal and reactive, sclera is clear Neck:? Supple Respiratory:? Clear to auscultation bilaterally, no wheezing Cardiac:? S1-S2 normal, sinus tachycardia Abdomen:? Soft, nontender, nondistended, obese, normoactive bowel sounds Extremities:? No edema, palpable pedal pulses Neuro:? Patient is awake, alert, oriented x3, nonfocal, follows commands and moves all extremities. Skin:? No lesions noted Psych:? Normal mentation and affect DS: Data Data Completed and Pending Labs on day of discharge: Labs from last 24 hours 07/11/24 07/11/24 07/11/24 11:34 07:27 05:47 WBC 6.5 RBC 3.75 L Hgb 11.2 L Hct 31.9 L MCV 85.1 MCH 29.9 MCHC 35.1 RDW 12.6 Plt Count 171 MPV 9.8 Immature Gran % (Auto) 0.3 Neut % (Auto) 52.4 Lymph % (Auto) 41.1 [place] % (Auto) 5.7 Eos % (Auto) 0.3 Baso % (Auto) 0.2 Lymph # (Auto) 2.66 [place] # (Auto) 0.4 Eos # (Auto) 0.0 Baso # (Auto) 0.0 Abs Immat Gran (auto) 0.02 Absolute Neuts (auto) 3.4 Absolute Nucleated RBC 0.000 Nucleated RBC % 0.0 Sodium 135 L Potassium 2.9 L Chloride 105 Carbon Dioxide 26 Anion Gap 4 BUN 10 Creatinine 0.70 Estim Creat Clear Calc 137 Estimated GFR > 60 Glucose 181 H POC Capillary Glucose 171 H 194 H Calcium 8.0 L Total Bilirubin 1.7 H AST 19 ALT 14 Alkaline Phosphatase 66 Total Protein 5.0 L Albumin 3.1 L 07/10/24 07/10/24 19:15 16:20 WBC RBC Hgb Hct MCV MCH MCHC RDW Plt Count MPV Immature Gran % (Auto) Neut % (Auto) Lymph % (Auto) [place] % (Auto) Eos % (Auto) Baso % (Auto) Lymph # (Auto) [place] # (Auto) Eos # (Auto) Baso # (Auto) Abs Immat Gran (auto) Absolute Neuts (auto) Absolute Nucleated RBC Nucleated RBC % Sodium Potassium Chloride Carbon Dioxide Anion Gap BUN Creatinine Estim Creat Clear Calc Estimated GFR Glucose POC Capillary Glucose 245 H 249 H Calcium Total Bilirubin AST ALT Alkaline Phosphatase Total Protein Albumin Discharge Plan Discharge Attending physician on discharge: Waqas Moya Consulting providers: Karena Marcial Discharging Clinician: hPilly Minaya Anticipated Discharge Date/Time: 07/11/24 13:22 Patient Disposition: Home, Self-Care Activity: as tolerated Diet: diabetic Patient Instructions: Antibiotic Form, Blood and Urine Ketones (DC), Diabetic Ketoacidosis (DC), Basic Carbohydrate Counting (DC) Patient Language: Armenian Stand Alone Forms: General Discharge Information Follow-up/Referrals: Naren Ortega MD [Primary Care Provider] - 1 Week Discharge Medications: Continued insulin lispro [Humalog U-100 Insulin] 100 unit/mL solution See Rx Instructions continuous subcutaneous infusion .COMPLEX Rx Instructions: via continuous subcutaneous infusion 100units/mL; buspirone 10 mg tablet 10 mg PO TID dextroamphetamine-amphetamine 10 mg tablet 20 mg PO DAILY fexofenadine [Aller-Fex] 180 mg tablet 180 mg PO DAILY PRN (Reason: seasonal allergies) metoclopramide HCl 10 mg tablet 10 mg PO BID PRN (Reason: Nausea) Qty: 30 1RF duloxetine 60 mg capsule,delayed release(DR/EC) 60 mg PO DAILY Qty: 30 1RF insulin glargine-yfgn [Semglee(insulin glarg-yfgn)Pen] 100 unit/mL (3 mL) insulin pen 50 unit SUBCUT DAILY Qty: 1 2RF Humalog KwikPen Insulin 200 unit/mL (3 mL) insulin pen 5 unit subcut TID Qty: 6 0RF (DME) FreeStyle Nando 14 Day Sensor Kit See Rx Instructions .Route Qty: 1 3RF Rx Instructions: As directed for diabetes Date of admission: 07/08/24 18:16 Primary Care Provider: Naren Ortega Admitting Provider: Luis Reynoso Attending physician on admission: Luis Reynoso Condition: Serious Quality If No VTE Prophylaxis Answer both mechanical and pharmacologic: Reason no mechanical VTE proph: low risk/not indicated Reason no pharmacologic proph: low risk/not indicated Hospitalist MIPS Heart Failure (Exclusion) Patient has history of Heart Transplant or Left Ventricular Assistive Device?: No IF YES, STOP HERE Heart Failure (Qualifier) Patient has current or prior documentation of LVEF less than or equal to 40%, or mod/servere depressed LVSF?: No IF NO, STOP HERE
--- OUTSIDE RECORDS SUMMARY | 2024-07-15 19:10 | XMS_ITS | Encounter Summary ---
Author Organization [facility] Healthcare Address [address] [place] [address] Care Team Providers Care Ceramist Name Role Phone Naren Ortega MD Primary Care Provider [phone] Encounter Details Date Type Department Care Team (Late st Contact Info) Description 03/18/2023 Patient Self-Triage [facility]/ Physicians [address] [place] [address] Purat, Generic Provider [address] [place], [place] [id number] Social History Tobacco Use Types Packs/Day Years Used Date Smoking Tobacco: Never Smokeless Tobacco: Never AUDIT-C Answer Date Recorded Q1: How often do you have a drink containing alc ohol? Monthly or less 11/02/2022 Average Number of Drinks Not on file 023 Frequency of Binge Drinking Not on file 10/16 PHQ-2 Answer Date Recorded PHQ-2 Total Score (If total score is 3 or more points, staff should administer the PHQ-9) 0 12/14/2022 Sex and Gender Information Value Date Recorded Sex Assigned at Not on file Legal Sex Male 10:25 PM [employer]SF[employer] MAN Gender Identity Not on file Sexual Orientation Not on file documented as of this encounter Plan of Treatment Not on file documented as of this encounter Visit Diagnoses Not on filedocumented in this encounter Care Teams Ceramist Relationship Specialty Start Date End Date Naren Ortega MD [address] [place] [address] PCP - General Family Medicine 01/07/22 documented as of this encounter
--- OUTSIDE RECORDS SUMMARY | 2024-07-15 19:10 | XMS_ITS | Clinical Summary ---
Author Organization [facility] Address [address] [place] [address] Care Team Providers Care Tank Terminal Gauger Name Role Phone Naren Ortega MD Primary Care Provider + [phone] Allergies No known active allergies Medications SEMGLEE-yfgn 100 unit/mL (3 mL) pen for injection Inject 60 Units under the skin daily 08/09/2022 Active lisinopriL (PRINIVIL,ZESTR IL) 5 mg tablet Take 1 tablet (5 mg total) by mouth daily 10/18/2022 Active BD Danni 2nd Gen Pen Needle 32 gauge x /32 needle USE WITH DAILY INSULIN PEN 09/26/[address] (Cymbalta) 60 mg capsule Take 1 capsule (60 mg total) by mouth daily Active insulin lispro (HumaLOG) 100 unit/mL vial for injection Inject up to 100 units daily via insulin pump 30 mL 11 11/29/2022 Active metoprolol XL (TOPROL-XL) 25 mg extended release tablet Take 1 tablet (25 mg total) by mouth every morning 10/29/2022 Active sildenafiL (VIAGRA) 100 mg tablet TAKE 1 TABLET BY MOUTH ONCE A WEEK NEEDED 11/20/2022 Active tadalafiL (CIALIS) 5 mg tablet TAKE 2 TABLETS BY MOUTH ONCE DAILY NEEDED MAY TAKE ALONG WITH 100 MG VIAGRA 11/20/2022 Active escitalopram (LEXAPRO) 10 mg tablet 01/03/2023 Active Active Problems Problem Noted Date Diagnosed Date Insulin pump status 12/06/2022 Assessment & Plan (01/26/2023 3:55 PM CDT): When in manual mode, change BR to 12a 1.4, 630a 1.7. Change CR to 6. Assessment & Plan (12/06/2022 4:47 PM CDT): No pump setting changes. Type 2 diabetes mellitus wit h hyperglycemia, with long-term current use of insulin 11/02/2022 Assessment & Plan (01/26/2023 3:58 PM CDT): Chronic problem, not at goal. Main issue is high carb diet with missed boluses, and very frequent exits from auto mode due to persistent high sensor BG >1 hr. We reviewed the need for consistent CHO entry to avoid sustained pC highs. Adjustment to settings below. And I emailed Vringo about getting his software updated to 780 so it does not require calibrations and hopefully will have less exits from auto mode. Assessment & Plan (12/14/2022 4:31 PM CDT): Hba1c was Lab Results Component Value Date HGBA1C 9.4 12/06/2022 today, indicating inadequate DM control Goal Hba1c and blood glucose explained Diet and exercise were advised Prevention and treatment of hyypoglcyemia were discussed with the patient Blood glucose monitoring : Guardian Adjustment to medications: Start pump on Automode now Settings for manual mode adjusted Pump settings : Basal, when on manual mode 12a 1.4 630a 1.5 IC 7 CF 25 TG 110 AIT 4 h Max bolus 15 units Pt to send me a message via Syntervention in a week, to let me know how he is doing with the new pump settings. Assessment & Plan (12/06/2022 4:46 PM CDT): Chronic problem, not at goal. He was not wearing his pump today as his pump site and CGM ended earlier today. We walked through placing a new pump and started a new CGM. I sent a note to Vringo to follow up with patient, especially concerning site changes going forward and to check in with him about starting auto mode as I was unable to do this today since the sensor was warming up. I did not make any pump changes today. I reviewed his pump history and his total daily CHO input is only 42 grams CHO so seems likely he is underestimating. But will download and review next visit to reevaluate especially once he's in auto mode. Assessment & Plan (11/02/2022 4:28 PM CDT): Hba1c was Lab Results Component Value Date HGBA1C 9.1 11/02/2022 today, indicating poor DM control Goal Hba1c under 7% and blood glucose in the 90 to 130 range was explained Diet and exercise were advised Prevention and treatment of hyypoglcyemia were discussed with the patient Blood glucose monitoring : Continue monitoring with freestyle Nando CGM Adjustment to medications: Lower Semglee, take 50 units at bedtime Take Humalog, 10 units before meal For sugars over 180, take 12 units For sugars over 220, take 13 units For sugars over 260, take 14 units For sugars over 300, take 15 units Patient advised to send me a message via Syntervention every week or every other week so we can look at his freestyle Nando data for more advice The patient also benefit from an insulin pump. Will try to start process for mini med Medtronic 770 G Medical History Medical History Date Comments Type 2 diabetes mellitus (HCC) Hypertension Family History Medical History Relation Name Comments No Known Problems Father No Known Problems Mother Relation Name Status Comments Father Alive Mother Alive Social History Tobacco Use Types Packs/Day Years Used Date Smoking Tobacco: Never Smokeless Tobacco: Never Tobacco Cessation:Counseling Given: Not Answered AUDIT-C Answer Date Recorded Q1: How often do you have a drink containing alc ohol? 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 Gender Identity Not on file Sexual Orientation Not on file Obstetrics History Last Filed Vital Signs Vital Sign Reading Time Taken Comments Blood Pressure 111/72 01/26/2023 2:36 PM CDT Pulse 108 01/26/2023 2:36 PM CDT Temperature 36.9 ??C (98.4 ??F) 01/26/2023 2:36 PM CD T Respiratory Rate 16 01/26/2023 2:36 PM CDT Oxygen Saturation - - Inhaled Oxygen Concentration - - Weight 104.3 kg (230 lb) 01/26/2023 2:36 PM CDT Height 175.3 cm (5' 9 ) 01/26/2023 2:36 PM CDT Body Mass Index 33.97 01/26/2023 2:36 PM CDT Plan of Treatment Health Maintenance Due Date Last Done Comments Hepatitis C Screening 1986 Dilated Eye Exam 1986 Pneumococcal vaccine <65 (1 of 2 - PCV) 1992 DTaP/Tdap/Td Vaccine (1 - Tdap) 1997 Varicella Vaccines (1 of 2 - 13+ 2-dose series) 1999 Hepatitis B Screening 2004 Regular Well Visit/Exam 18-64 2004 Hemoglobin A1C 07/29/2023 01/26/2023, 11/16, 11/02/2022, Additional history exists Albumin Creatinine Ratio, Urine 09/28/2023 09/27/2022, 09/27/2022 Foot Exam 11/03/2023 11/02/2022 Lipid Panel 11/03/2023 11/02/2022 eGFR 11/03/2023 11/02/2022 Depression Screening 12/15/2023 12/14/2022 Covid-19 Vaccine ( season) 2024 05/15/2021, 09/28/2020, 08/30/2020 Influenza Vaccine (#1) 2024 05/12/2021, 2019 HPV Vaccines Aged Out No longer eligi ble based on patient's age to complete this topic Procedures Procedure Name Priority Date/Time Associated Diagnosis Comments POCT HEMOGLOBIN A1C Routine 01/26/2023 2 :40 PM CDT Type 2 diabetes mellitus with hyperglycemia, with long-term current use of insulin (CMS/HCC) (HCC) EGFR Routine 11/02/2022 12:47 PM CDT Type 2 diabetes mellitus with hyperglycemia, with long-term current use of insulin ([facility]) ([facility]) LIPID PANEL Routine 11/02/2022 12:47 PM CDT Type 2 diabetes mellitus with hyperglycemia, with long-term current use of insulin ([facility]) ([facility]) ALBUMIN CREATININE RATIO, URINE Routine 09/27/2022 1:36 PM CDT from Last 3 Months or Most Recently Relevant to Health Maintenance Results * POCT hemoglobin A1c (01/26/2023 2:40 PM CDT) Hemoglobin A1C, POC 9.3 % Blood 01/26/2023 2:40 PM CDT Antonella CANDELARIO POINT OF CARE TEST DIPAK BELL Final Result * eGFR (11/02/2022 12:47 PM CDT) eGFR 106 mL/min/1. 73 m2 [facility] Comment: Interpretive Data Reference Interval Normal ?>/= 90 mL/min/1.73m2 Mildly decreased* ? 60 - 89 mL/min/1.73m2 Mildly to moderately decreased ?45 - 59 mL/min/1.73m2 Moderately to severely decreased ??30 - 44 mL/min/1.73m2 Severely decreased ?15 - 29 mL/min/1.73m2 Kidney Failure ?< 15 ??mL/min/1.73m2 *Relative to young adult level Estimated glomerular filtration rate is determined by the 2020 CKD-EPI equation recommended by the National Kidney Foundation (A Unifying Approach to GFR Estimation: Recommendations of the NKF-ASK Task Force on Reassessing the Inclusion of Race in Diagnosing Kidney Disease, JASN 2021). The CKD-EPI equation should not be used for patients with unstable renal function and has not been validated in children and those over 70. Current interpretive data was last reviewed 2021. Blood 11/02/2022 12:4 7 PM CDT 11/02/2022 6:09 PM CDT us Herman Boone MD LAB BLOOD ORDERABLES Final Resul t [facility] [id number] [address] [place] [address] * Lipid panel (11/02/2022 12:47 PM CDT) Cholesterol 150 30 - 199 mg/dL [facility] Comment: Interpretive Data Ages < or = 19 years ??Acceptable: ? <170 mg/dL ??Borderline high: ??170-199 mg/dL ??High: ? >or= 200 mg/dL Ages > or = 20 years ??Desirable: ?<200 mg/dL ??Borderline high: ??200-239 mg/dL ??High: ? >or= 240 mg/dL Literature References: 1. Expert Panel on Integrated Guidelines for Cardiovascular Health and Risk Reduction in Children and Adolescents. Pediatrics 2011;128:S213 2. NCEP Expert Panel. Circulation 2004;110:227 Current Interpretive Data was last revised on 2018. Triglycerides 113 <=149 mg/dL [facility] Comment: Interpretive Data Ages < or = 9 years ??Acceptable: ? <75 mg/dL ??Borderline high: ??75-99 mg/dL ??High: ? >or= 100 mg/dL Ages 10 to 20 years ??Acceptable: ? <90 mg/dL ??Borderline high: ??90-129 mg/dL ??High: ? >or= 130 mg/dL Ages > or = 20 years ??Desirable: ?<150 mg/dL ??Borderline high: ??150-199 mg/dL ??High: ? 200-499 mg/dL ?Very high: ?? >or= 499 mg/dL Literature References: 1. Expert Panel on Integrated Guidelines for Cardiovascular Health and Risk Reduction in Children and Adolescents. Pediatrics 2011;128:S213 2. NCEP Expert Panel. Circulation 2004;110:227 Current Interpretive Data was last revised on 2018. HDL 48 >=40 mg/dL [facility] Comment: Interpretive Data Ages < or = 19 years ??Acceptable: ? >45 mg/dL ??Borderline low: ?? 40-45 mg/dL ??Low: ? <40 mg/dL Ages > or = 20 years ??Desirable: ?>or= 60 mg/dL ??Low: ? <40 mg/dL Literature References: 1. Expert Panel on Integrated Guidelines for Cardiovascular Health and Risk Reduction in Children and Adolescents. Pediatrics 2011;128:S213 2. NCEP Expert Panel. Circulation 2004;110:227 Current Interpretive Data was last revised on 2018. LDL, calculated 79 <=129 mg/dL [facility] Comment: Interpretive Data Ages < or = 19 years ??Acceptable: ? <110 mg/dL ??Borderline high: ??110-129 mg/dL ??High: ?>or= 130 mg/dL Ages > or = 20 years ??Optimal: ? <100 mg/dL ??Near optimal: ?100-129 mg/dL ??Borderline high: ?? 130-159 mg/dL ??High: ?>160 mg/dL Literature References: 1. Expert Panel on Integrated Guidelines for Cardiovascular Health and Risk Reduction in Children and Adolescents. Pediatrics 2011;128:S213 2. NCEP Expert Panel. Circulation 2004;110:227 Current Interpretive Data was last revised on 2018. Non-HDL Cholesterol 102 mg/dL [facility] Comment: Interpretive Data Ages < or = 19 years ??Acceptable: ?<120 mg/dL ??Borderline high: ??120-144 mg/dL ??High: ?>145 mg/dL Ages > or = 20 years ??When triglycerides are >200 mg/dL, Non-HDL cholesterol is a secondary target of ? therapy with treatment goals that are 30 mg/dL greater than the LDL cholesterol target. ? Literature References: 1. Expert Panel on Integrated Guidelines for Cardiovascular Health and Risk Reduction in Children and Adolescents. Pediatrics 2011;128:S213 2. NCEP Expert Panel. Circulation 2004;110:227 Current Interpretive Data was last revised on 2018. Chol/HDL ratio 3 [facility] Blood 11/02/2022 12:4 7 PM CDT 11/02/2022 6:09 PM CDT Herman Boone MD LAB BLOOD ORDERABLES Final Resul t [facility] [address] [address] [place] [address] * Albumin Creatinine Ratio, Urine (09/27/2022 1:36 PM CDT) SCRIBED Creatinine, Urine 102 20 - 320 [facility] SCRIBED Microalbumin 0.5 NA - NA [facility] SCRIBED Microalb/Creat Ratio 5 <30 - NA [facility] Urine 09/27/2022 1:36 PM CDT Samy Reagan MD LAB URINE ORDERABLES Edit ed Result - Final [facility] from Last 3 Months or Most Recently Relevant to Health Maintenance Insurance ANTH ACCESS CHOICE Care Teams Tank Terminal Gauger Relationship Specialty Start Date End Date Naren Ortega MD [address] [place] [address] PCP - General Family Medicine 01/07/22
--- OUTSIDE RECORDS SUMMARY | 2024-07-15 19:10 | XMS_ITS | Encounter Summary ---
Author Organization [facility] Address [address] [place] [address] Care Team Providers Care Hair Specialist Name Role Phone Naren Ortega MD Primary Care Provider [phone] Reason for Visit * Reason Onset Date Comments Medtronic 770G Rx 01/28/2023 Encounter Details Date Type Department Care Team (Late st Contact Info) Description 01/28/2023 Telephone [facility] [place] [facility] Specialists [facility] [address] [facility] [address] [address] [place] [address] 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 documented in this encounter Plan of Treatment Not on file documented as of this encounter Visit Diagnoses Not on filedocumented in this encounter Care Teams Hair Specialist Relationship Specialty Start Date End Date Naren Ortega MD [address] [place] [address] PCP - General Family Medicine 01/07/22 documented as of this encounter
--- OUTSIDE RECORDS SUMMARY | 2024-07-15 19:10 | XMS_ITS | Encounter Summary ---
Author Organization [facility] Address [address] [place] [address] Care Team Providers Care Instrument Specialist Name Role Phone Naren Ortega MD Primary Care Provider [phone] Reason for Visit * Reason Comments Insulin Pump Follow Up Encounter Details Date Type Department Care Team (Late st Contact Info) Description 12/14/2022 2:30 PM CDT Office Visit [facility] Diabetes and Endocrinology [address] [place] [id number] [place] [address] [facility] [address] [place] [address] Type 2 diabetes mellitus with hyperglycemia, with long-term current use of insulin (CMS/HCC) (HCC) (Primary Dx) Social History Tobacco Use Types Packs/Day Years [...] on file 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 Gender Identity Not on file Sexual Orientation Not on file documented as of this encounter Last Filed Vital Signs Vital Sign Reading Time Taken Comments Blood Pressure 110/68 12/14/2022 2:36 PM CDT Pulse 54 12/14/2022 2:36 PM CDT Temperature - - Respiratory Rate 16 12/14/2022 2:36 PM CDT Oxygen Saturation - - Inhaled Oxygen Concentration - - Weight 102.8 kg (226 lb 9.6 oz) 12/14/2022 2:36 PM CDT Height 175.3 cm (5' 9 ) 12/14/2022 2:36 PM CDT Body Mass Index 33.46 12/14/2022 2:36 PM CDT documented in this encounter Patient Instructions * Patient Instructions* Herman Boone MD - 12/14/2022 2:30 PM CDT Your pump is now on Automode Enter your carbs, when bolusing, before meals. Pump settings : Basal, when on manual mode 12a 1.4 630a 1.5 IC 7 CF 25 TG 110 AIT 4 h Max bolus 15 units documented in this encounter Progress Notes * Herman Boone MD - 12/14/2022 2:30 PM CDT Images from the original note were not included. Subjective/Objective Patient ID: Shane Wheeler is a 37 y.o. male. Chief Complaint Pump start follow up HPI Started MM 770 G 2 weeks ago Feels comfortable with the pump now Still on manual mode Bolusing with meals and trying to correct hyperglycemia Setttings : Review of Systems Constitutional: Negative for activity change and fatigue. HENT: Negative for congestion, hearing loss, trouble swallowing and voice change. Eyes: Negative for redness and visual disturbance. Respiratory: Negative for apnea, cough and chest tightness. Cardiovascular: Negative for chest pain, palpitations and leg swelling. Gastrointestinal: Negative for abdominal distention, abdominal pain, constipation, diarrhea and nausea. Endocrine: Negative for cold intolerance, heat intolerance, polydipsia, polyphagia and polyuria. Genitourinary: Negative for difficulty urinating, frequency and urgency. Musculoskeletal: Negative for arthralgias, back pain, gait problem and neck pain. Skin: Negative for color change. Allergic/Immunologic: Negative for food allergies. Neurological: Negative for dizziness, tremors, syncope, weakness, light- headedness and headaches. Hematological: Negative for adenopathy. Psychiatric/Behavioral: Negative for sleep disturbance. The patient is not nervous/anxious. Physical Exam Constitutional: Appearance: He is well-developed. HENT: Head: Normocephalic and atraumatic. Eyes: Conjunctiva/sclera: Conjunctivae normal. Pupils: Pupils are equal, round, and reactive to light. Neck: Thyroid: No thyroid mass or thyromegaly. Trachea: Trachea and phonation normal. Cardiovascular: Rate and Rhythm: Normal rate and regular rhythm. Heart sounds: Normal heart sounds. No murmur heard. Pulmonary: Effort: Pulmonary effort is normal. Breath sounds: Normal breath sounds. Abdominal: General: There is no distension. Palpations: Abdomen is soft. Musculoskeletal: General: Normal range of motion. Skin: General: Skin is warm. Neurological: Mental Status: He is alert and oriented to person, place, and time. Motor: Motor function is intact. Psychiatric: Behavior: Behavior normal. Assessment/Plan Diagnoses and all orders for this visit: Type 2 diabetes mellitus with hyperglycemia, with long-term current use of insulin ([facility]) (HCC) (E11.65, Z79.4) (Primary) Assessment & Plan: Hba1c was Lab Results Component Value Date [...] Pt to send me a message via uMentioned in a week, to let me know how he is doing with the new pump settings. documented in this encounter Miscellaneous Notes * Assessment & Plan Note - Herman Boone MD - 12/14/2022 4:29 PM CDTAssociated Problem(s): Type 2 diabetes mellitus with hyperglycemia, with long-term current use of insulin ([facility]) Hba1c was Lab Results Component Value Date [...] Pt to send me a message via uMentioned in a week, to let me know how he is doing with the new pump settings. documented in this encounter Plan of Treatment Not on file documented as of this encounter Visit Diagnoses Diagnosis Type 2 diabetes mellitus with hyperglycemia, with long-term current use of insulin (HCC)- Primary documented in this encounter Care Teams Instrument Specialist Relationship Specialty Start Date End Date Naren Ortega MD [address] [place] [address] PCP - General Family Medicine 01/07/22 documented as of this encounter
--- OUTSIDE RECORDS SUMMARY | 2024-07-15 19:10 | XMS_ITS | Encounter Summary ---
Author Organization [facility] Address [address] [place] [address] Care Team Providers Care Change Agent Name Role Phone Naren Ortega MD Primary Care Provider [phone] Reason for Visit * Reason Onset Date Comments Med Refill 03/07/2023 Encounter Details Date Type Department Care Team (Late st Contact Info) Description 03/07/2023 Telephone [facility] [place] Specialists [facility] [address] 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 * Telephone Encounter - Seda Walter MA - 03/07/2023 3:45 PM CDT Attempt to contact [employer] was made. No success. Waited on line for almost 40 minutes for someoneto answer the phone. Tried to contact Chris at [phone]. No answer. LVM informing him about thecall we received. Asked if they can please fax the Request/Form. * Telephone Encounter - Edwige Allan - 03/07/2023 2:27 PM CDT Refill Request LV: 01/26/23 [place]: 05/11/23 The office has received a request for the prescription(s) listed below: Requestor: Medtronic [phone] opt 6 Rx(s): 780 G pump patient is requesting to upgrade Out of Rx(s): day: Pharm/Ph#: [employer] [phone] opt 6 documented in this encounter Plan of Treatment Not on file documented as of this encounter Visit Diagnoses Not on filedocumented in this encounter Care Teams Change Agent Relationship Specialty Start Date End Date Naren Ortega MD [address] [place] [address] PCP - General Family Medicine 01/07/22 documented as of this encounter
--- OUTSIDE RECORDS SUMMARY | 2024-07-15 19:10 | XMS_ITS | Encounter Summary ---
Author Organization [facility] Address [address] [place] [address] Care Team Providers Care Explosives Handler Name Role Phone Naren Ortega MD Primary Care Provider [phone] Reason for Visit * Reason Comments Follow-up DM TYPE II Encounter Details Date Type Department Care Team (Late st Contact Info) Description 01/26/2023 2:30 PM CDT Office Visit [facility] [address] [address] [place] [address] [facility] [address] [place] [address] Type 2 diabetes mellitus with hyperglycemia, with long-term current use of insulin (CMS/HCC) (HCC) (Primary Dx); Insulin pump status Social History Tobacco Use Types Packs/Day Years [...] on file 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 [facility] Diabetes Follow Up Visit Subjective/Objective Patient ID: Shane Wheeler is a 37 y.o. male who comes in today to our Endocrinology clinic to follow up for DM management. Chief Complaint Follow-up (DM TYPE II) HPI DM diagnosed around 26 YO. On PO meds until 03/08 when he was admitted in DKA and started on insulin. In 11/07 he had + ROSALIA Ab with detectable c-peptide (2.23). Diabetes complications and/or comorbidity include: h/o DKA Current medications: Started on Medtronic 770 with Humalog on 11/29/22 BR 12a 1.4, 630a 1.5 CR 7 SF 25 Target 110 AIT 4 hrs Dietary habits: 2 meals/day Exercise routine: limited Home CBG monitoring results: checks blood sugars 4x/day via [employer]edic[employer] Guardian CGM. BG Average: 248 mg/dl with: 37% high 34% high 29% in target range 0% low. Overnight pattern: comes down overnight Postprandial pattern: high pC, mainly due to missed boluses No hypoglycemia. Neuropathy: no complaints. Last foot exam: 11/07 Statin therapy: No. Last lipid panel: 11/07. Nephropathy: On [place]-I / ARB???s: Yes. Lisinopril 5 mg. Last MA: 10/07. Last creat/GFR: 11/07. Retinopathy: Date of last eye examination: due now HTN - on lisinopril. Wt Readings from Last 3 Encounters: 01/26/23 104.3 kg (230 lb) 12/14/22 102.8 kg (226 lb 9.6 oz) 12/06/22 100.9 kg (222 lb 6.4 oz) Labs: Last A1c: Recent Labs Lab Units 01/26/23 1440 HEMOGLOBIN A1C % 9.3 No lab exists for component: [id number] Component Latest Ref Rng 11/02/2022 12/06/2022 Hgb A1C % 9.1 9.4 Lipid profile within the last year: Lab Results Component Value Date CHOL 150 11/02/2022 Lab Results Component Value Date TRIG 113 11/02/2022 Lab Results Component Value Date HDL 48 11/02/2022 Lab Results Component Value Date LDLCALC 79 11/02/2022 Review of Systems Constitutional: Negative. Eyes: Negative. Respiratory: Negative. Cardiovascular: Negative. Gastrointestinal: Negative. Endocrine: Negative. Genitourinary: Negative. Skin: Negative. Neurological: Negative. Psychiatric/Behavioral: Negative. Vitals: 01/26/23 1436 BP: 111/72 BP Location: Left arm Patient Position: Sitting Pulse: 108 Resp: 16 Temp: 36.9 ??C (98.4 ??F) TempSrc: Oral Weight: 104.3 kg (230 lb) Height: 175.3 cm (5' 9 ) Physical Exam Constitutional: Appearance: Normal appearance. HENT: Head: Normocephalic and atraumatic. Neck: Thyroid: No thyromegaly. Cardiovascular: Rate and Rhythm: Normal rate and regular rhythm. Heart sounds: Normal heart sounds. Pulmonary: Effort: Pulmonary effort is normal. Breath sounds: Normal breath sounds. Skin: General: Skin is warm and dry. Neurological: General: No focal deficit present. Mental Status: He is alert. Psychiatric: Attention and Perception: Attention normal. Mood and Affect: Mood normal. Behavior: Behavior normal. Assessment/Plan Diagnoses and all orders for this visit: Type 2 diabetes mellitus with hyperglycemia, with long-term current use of insulin ([facility] ([facility]) (Primary) Assessment & Plan: Chronic problem, not at goal. Main issue is high carb diet with missed boluses, and very frequent exits from auto mode due to persistent high sensor BG >1 hr. We reviewed the need for consistent CHO entry to avoid sustained pC highs. Adjustment to settings below. And I emailed Medtronic about getting his software updated to 780 so it does not require calibrations and hopefully will have less exits from auto mode. Orders: - POCT hemoglobin A1c - POCT glucose Insulin pump status Assessment & Plan: When in manual mode, change BR to 12a 1.4, 630a 1.7. Change CR to 6. KODAK Rodas documented in this encounter Miscellaneous Notes * Assessment & Plan Note - Antonella Alan PA - 01/26/2023 3:58 PM CDT Associated Problem(s): Type 2 diabetes mellitus with hyperglycemia, with long- term current use of insulin ([facility]) Chronic problem, not at goal. Main issue is high carb diet with missed boluses, and very frequent exits from auto mode due to persistent high sensor BG >1 hr. We reviewed the need for consistent CHO entry to avoid sustained pC highs. Adjustment to settings below. And I emailed Medtronic about getting his software updated to 780 so it does not require calibrations and hopefully will have less exits from auto mode. * Assessment & Plan Note - Antonella Alan PA - 01/26/2023 3:13 PM CDT Associated Problem(s): Insulin pump status When in manual mode, change BR to 12a 1.4, 630a 1.7. Change CR to 6. documented in this encounter Plan of Treatment Not on file documented as of this encounter Procedures Procedure Name Priority Date/Time Associated Diagnosis Comments POCT HEMOGLOBIN A1C Routine 01/26/2023 2 :40 PM CDT Type 2 diabetes mellitus with hyperglycemia, with long-term current use of insulin ([facility] ([facility]) POCT GLUCOSE Routine 01/26/2023 2:40 PM CDT Type 2 diabetes mellitus with hyperglycemia, with long-term current use of insulin ([facility] ([facility]) documented in this encounter Results * POCT glucose (01/26/2023 2:40 PM CDT) Glucose Blood, POC 440 mg/dL Blood 01/26/2023 2:40 PM CDT Antonella CANDELARIO POINT OF CARE TEST ORDE RABLES Final Result * POCT hemoglobin A1c (01/26/2023 2:40 PM CDT) Hemoglobin A1C, POC 9.3 % Blood 01/26/2023 2:40 PM CDT Antonella CANDELARIO POINT OF CARE TEST ORDE RABLES Final Result documented in this encounter Visit Diagnoses Diagnosis Type 2 diabetes mellitus with hyperglycemia, with long-term current use of insulin ([facility])- Primary Insulin pump status documented in this encounter Discontinued Medications Medication Sig Discontinue Reason Start Date End Da te FreeStyle Nando 2 Sensor kit CHANGE SENSOR EVERY TWO WEEKS. Alternate therapy 08/18/2022 01/25/2023 documented as of this encounter Historical Medications * This list may reflect changes made after this encounter. Medication Sig Dispense Quantity Refills Last Filled Start D ate End Date escitalopram (LEXAPRO) 10 mg tablet 01/03/2023 added in this encounter Care Teams Explosives Handler Relationship Specialty Start Date End Date Naren Ortega MD [address] [place] [address] PCP - General Family Medicine 01/07/22 documented as of this encounter
--- OUTSIDE RECORDS SUMMARY | 2024-07-15 19:10 | XMS_ITS | Referral Summary ---
Author Organization [facility] Address [address] [place] [address] Care Team Providers Care Mold Forms Builder Name Role Phone Naren Ortega MD Primary Care Provider [phone] Allergies No known active allergies Medications [id number] [...] Adjustment to settings below. And I emailed [employer] about getting his software updated to 780 [...] Pt to send me a message via Traklight in a week, to let me know how he is doing with the new pump settings. Assessment & Plan (12/06/2022 4:46 PM CDT): Chronic problem, not at goal. He was not wearing his pump today as his pump site and CGM ended earlier today. We walked through placing a new pump and started a new CGM. I sent a note to [employer] to follow up with patient, especially concerning [...] advised to send me a message via Traklight every week or every other week so we can look at his freestyle Nando data for more advice The patient also benefit from an insulin pump. 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 Gender Identity Not on file Sexual Orientation Not on file Last Filed Vital Signs Vital Sign Reading [...] 01/26/2023 2:36 PM CDT Plan of Treatment Not on file Procedures Procedure Name Priority Date/Time Associated Diagnosis Comments POCT HEMOGLOBIN A1C Routine 01/26/2023 2 :40 PM CDT Type 2 diabetes mellitus with hyperglycemia, with long-term current use of insulin ([facility] ([facility]) EGFR Routine 11/02/2022 12:47 PM CDT Type 2 diabetes mellitus with hyperglycemia, with long-term current use of insulin ([facility] ([facility]) LIPID PANEL Routine 11/02/2022 12:47 PM CDT Type 2 diabetes mellitus with hyperglycemia, with long-term current use of insulin ([facility] ([facility]) ALBUMIN CREATININE RATIO, URINE Routine 09/27/2022 1:36 PM CDT from Last 3 Months or Most Recently Relevant to Health Maintenance Results * POCT hemoglobin A1c (01/26/2023 2:40 PM CDT) Pathologist [facility] Hemoglobin A1C, POC 9.3 % Blood 01/26/2023 2:40 PM CDT Antonella CANDELARIO POINT OF CARE TEST DIPAK BELL Final Result * eGFR (11/02/2022 12:47 PM CDT) Pathologist [facility] eGFR 106 mL/min/1. 73 m2 [facility] Comment: Interpretive Data Reference Interval Normal [...] of Race in Diagnosing Kidney Disease, JASN 2020). The CKD-EPI equation should not be used for patients with unstable renal function and has not been validated in children and those over 70. Current interpretive data was last reviewed 2021. Blood 11/02/2022 12:4 7 PM CDT 11/02/2022 6:09 PM CDT us Herman Boone MD LAB BLOOD ORDERABLES Final Resul t [facility] [id number] [place] [address] * Lipid panel (11/02/2022 12:47 PM CDT) [...] on 2018. Triglycerides 113 <=149 mg/dL [facility] Comment: Interpretive Data Ages < or = [...] on 2018. HDL 48 >=40 mg/dL [facility] Comment: Interpretive Data Ages < or = [...] 2018. LDL, calculated 79 <=129 mg/dL [facility] Comment: Interpretive Data Ages < or = [...] last revised on 2018. Chol/HDL ratio 3 [facility] Blood 11/02/2022 12:4 7 PM CDT 11/02/2022 6:09 PM CDT us Herman Boone MD LAB BLOOD ORDERABLES Final Resul t [facility] [id number] [place] [address] * Albumin Creatinine Ratio, Urine (09/27/2022 1:36 PM CDT) SCRIBED Creatinine, Urine 102 20 - 320 [facility] SCRIBED Microalbumin 0.5 NA - NA [facility] SCRIBED Microalb/Creat Ratio 5 <30 - NA [facility] Urine 09/27/2022 1:36 PM CDT us Historical Provider LAB URINE ORDERABLES Edit ed Result - Final [facility] from Last 3 Months or Most Recently Relevant to Health Maintenance Insurance ANTHEM ACCESS CHOICE Member Subscriber Plan / Payer (Ef fective 2021-Present) Name:Shane Wheeler Relation to Subscriber:Self Name:Shane Wheeler Payer ID:[id number] (NAIC) Type:[facility] Address: [facility] [id number] [place] [id number] Care Teams Mold Forms Builder Relationship Specialty Start Date End Date Naren Ortega MD [address] [place] [address] PCP - General Family Medicine 01/07/22
--- OUTSIDE RECORDS SUMMARY | 2024-07-15 19:10 | XMS_ITS | Encounter Summary ---
Author Organization [facility] Address [address] [place] [address] Care Team Providers Care Staff Developer Name Role Phone Naren Ortega MD Primary Care Provider [phone] Reason for Visit * Reason Onset Date Comments Forms/questionnaires 11/25/2023 Medtronic Encounter Details Date Type Department Care Team (Late st Contact Info) Description 11/25/2023 Telephone [facility] [address] [address] [place] [address] [facility] [address] [address] Forms/questionnaires (Medtronic) Social History Tobacco Use Types Packs/Day Years [...] on file 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 documented in this encounter Plan of Treatment Not on file documented as of this encounter Visit Diagnoses Not on filedocumented in this encounter Care Teams Staff Developer Relationship Specialty Start Date End Date Naren Ortega MD [address] [place] [address] PCP - General Family Medicine 01/07/22 documented as of this encounter
--- OUTSIDE RECORDS SUMMARY | 2024-07-15 19:10 | XMS_ITS | Encounter Summary ---
Author Organization [facility] Address [address] [place] [address] Care Team Providers Care Physical Therapy Aid Name Role Phone Naren Ortega MD Primary Care Provider [phone] Encounter Details Date Type Department Care Team (Late st Contact Info) Description 03/19/2023 10:45 AM CDT Telemedicine [facility] Medical [facility] Virtual Care [address] [place] [address] Cinthia Hope, RHEA [address] [place] [address] Cellulitis of toe of right foot (Primary Dx); Type 2 diabetes mellitus with hyperglycemia, with long-term current use of insulin ([facility] ([facility]) Social History Tobacco Use Types Packs/Day Years [...] on file 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 [facility] Virtual Care Screening Evaluation for toe pain This was a telemedicine visit with Shane Wheeler alone which took place via real-time video connection with [facility]. During the visit, I was located at home and the patient was located at home in the state [facility]. The patient visit started at 1045 and ended at 1050. My total encounter time on 03/19/2023 was 5 minutes which was spent in the activities documented in the note. This includes time spent prior to the visit and after the visit in direct care of the patient. This time does not include time spent in any separately reportable services. I have explained the option of participating in a telemedicine visit to the patient. After being given an opportunity to ask questions about and discuss this type of visit, the patient verbally consented to proceeding with the telemedicine visit. The patient understands that this service replaces an office visit and they may be billed and/or responsible for any applicable copayments. Subjective/Objective Patient ID: Shane Wheeler is a 37 y.o. male. Pt completed a virtual care appt with c/o a callus on his R great toe x1 week. He reports BS 150-200. Rash This is a new problem. The current episode started in the past 7 days. The problem has been gradually worsening since onset. Location: Right great toe. The rash is characterized by redness, draining and blistering. He was exposed to nothing. Pertinent negatives include no congestion, cough, diarrhea, eye pain, facial edema, fatigue, fever, joint pain, nail changes, rhinorrhea, shortness of breath, sore throat or vomiting. Past treatments include nothing. Wound Check There has been colored discharge from the wound. The redness has worsened. The swelling has worsened. The pain has worsened. He has no difficulty moving the affected extremity or digit. Review of Systems Constitutional: Negative for appetite change, chills, fatigue and fever. HENT: Negative for congestion, rhinorrhea and sore throat. Eyes: Negative for pain, discharge and itching. Respiratory: Negative for cough, chest tightness, shortness of breath and wheezing. Cardiovascular: Negative for chest pain, palpitations and leg swelling. Gastrointestinal: Negative for diarrhea and vomiting. Musculoskeletal: Negative for joint pain. Skin: Positive for rash and wound. Negative for nail changes. Neurological: Negative for dizziness, light-headedness and headaches. Psychiatric/Behavioral: Negative for agitation. Physical Exam Constitutional: General: He is not in acute distress. Appearance: Normal appearance. He is not ill-appearing. HENT: Head: Normocephalic and atraumatic. Nose: Nose normal. Eyes: Conjunctiva/sclera: Conjunctivae normal. Pulmonary: Effort: Pulmonary effort is normal. No respiratory distress. Skin: Findings: Erythema present. Neurological: Mental Status: He is alert and oriented to person, place, and time. Psychiatric: Mood and Affect: Mood normal. Behavior: Behavior normal. There were no vitals filed for this visit. Assessment/Plan Diagnoses and all orders for this visit: Cellulitis of toe of right foot (Primary) Comments: Will prescribe Bactrim DS and bactroban Pt instructed to be seen MANUEL due to hx diabetes Type 2 diabetes mellitus with hyperglycemia, with long-term current use of insulin ([facility] ([facility]) Comments: BS ranging 150-200 Pt instructed to be seen Other orders - mupirocin (BACTROBAN) 2 % ointment; Apply topically 3 (three) times a day for 10 days - sulfamethoxazole-trimethoprim (BACTRIM DS) 800-160 mg per tablet; Take 1 tablet by mouth 2 (two) times a day for 10 days Disposition- Discussed medications dosages, usage & potential side effects. Risks and interactions reviewed with patient. Indications for testing reviewed. Patient has been instructed to follow up w PCP or go to ER for any signs or symptoms that are of concern or worsening. Patient verbalizes understanding. The patient was given the opportunity to ask all questions and to have all questions answered. Patient is in agreement with the plan of care Cinthia Hope NP documented in this encounter Plan of Treatment Not on file documented as of this encounter Visit Diagnoses Diagnosis Cellulitis of toe of right foot- Primary Type 2 diabetes mellitus with hyperglycemia, with long-term current use of insulin (HCC) documented in this encounter Care Teams Physical Therapy Aid Relationship Specialty Start Date End Date Naren Ortega MD [address] [place] [address] PCP - General Family Medicine 01/07/22 documented as of this encounter
--- OUTSIDE RECORDS SUMMARY | 2024-07-15 19:10 | XMS_ITS | Encounter Summary ---
Author Organization [facility] Address [address] [place] [address] Care Team Providers Care Cementing Machine Operator Name Role Phone Naren Ortega MD Primary Care Provider [phone] Reason for Visit * Reason Onset Date Comments follow up appointment 12/07/2022 Encounter Details Date Type Department Care Team (Late st Contact Info) Description 12/07/2022 Telephone [facility] Diabetes and Endocrinology [address] [place] [phone] [place] [address] [facility] [address] [place] [address] follow up appointment Social History Tobacco Use Types Packs/Day Years Used Date Smoking Tobacco: Never Smokeless Tobacco: Never AUDIT-C Answer Date Recorded Q1: How often do you have a drink containing alc ohol? 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 Gender Identity Not on file Sexual Orientation Not on file documented as of this encounter Miscellaneous Notes * Telephone Encounter - Yari Jimenez - 12/09/2022 11:35 AM CDT Called spoke to patient he is scheduled for 12/14/[address] Boone * Telephone Encounter - Yari Jimenez - 12/07/2022 1:07 PM CDT Called patient to schedule follow up for next week lmom * Telephone Encounter - Yari Jimenez - 12/07/2022 1:07 PM CDT ----- Message from Herman Boone MD sent at 12/07/2022 8:43 AM CDT ----- Would you please call this pt and have him come to see this coming Tuesday, sometime in the afternoon, ok to overbook ----- Message ----- From: Antonella Alan PA Sent: 12/06/2022 4:44 PM CDT To: Herman Boone MD Just wanted to give you a heads up on this patient. He brought all his pump/ CGM stuff in today, but he had a really tough time understanding how to change the pump and sensor sites. I went through it all with him and we placed both a pump and CGM site, but the CGM alone for Medtronic has like, a 10 page instruction manual that he had some trouble following. There's probably a good chance for user error for him, so I sent an email to [employer] to set him up for some more training and I'll see him back in another 4 weeks. documented in this encounter Plan of Treatment Not on file documented as of this encounter Visit Diagnoses Not on filedocumented in this encounter Care Teams Cementing Machine Operator Relationship Specialty Start Date End Date Naren Ortega MD [address] [place] [address] PCP - General Family Medicine 01/07/22 documented as of this encounter
--- OUTSIDE RECORDS SUMMARY | 2024-07-15 19:10 | XMS_ITS | Encounter Summary ---
Author Organization [facility] Medical Group Address [address] [place] [address] Care Team Providers Care Laboratory Animal Caretaker Name Role Phone Naren Ortega MD Primary Care Provider [phone] Reason for Visit * Reason Onset Date Comments Appt/ Schd change 01/21/2023 Encounter Details Date Type Department Care Team (Late st Contact Info) Description 01/21/2023 Telephone [facility] [place] [facility] [address] [facility] [address] [place] [address] [facility] [address] [place] [address] Appt/ Schd change Social History Tobacco Use Types Packs/Day Years [...] on file 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 Gender Identity Not on file Sexual Orientation Not on file documented as of this encounter Miscellaneous Notes * Telephone Encounter - Edwige Allan - 01/21/2023 2:30 PM CDT Called patient to reschd appt for 05/10/23 @ 3 to a different day/time slot Patient did not answer Left vm for patient to call office documented in this encounter Plan of Treatment Not on file documented as of this encounter Visit Diagnoses Not on filedocumented in this encounter Care Teams Laboratory Animal Caretaker Relationship Specialty Start Date End Date Naren Ortega MD [address] [place] [address] PCP - General Family Medicine 01/07/22 documented as of this encounter
--- OUTSIDE RECORDS SUMMARY | 2024-07-15 19:10 | XMS_ITS | Encounter Summary ---
Author Organization [facility] Medical Group Address [address] [facility] [facility] [address] [facility] [address] [place] [address] Care Team Providers Care Full Service Vending Driver Name Role Phone Naren Ortega MD Primary Care Provider [phone] Encounter Details Date Type Department Care Team (Late st Contact Info) Description 01/14/2023 Telephone [facility] Special[facility] [address] 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 documented in this encounter Plan of Treatment Not on file documented as of this encounter Visit Diagnoses Not on filedocumented in this encounter Care Teams Full Service Vending Driver Relationship Specialty Start Date End Date Naren Ortega MD [address] [place] [address] PCP - General Family Medicine 01/07/22 documented as of this encounter
--- OUTSIDE RECORDS SUMMARY | 2024-07-15 19:10 | XMS_ITS | Encounter Summary ---
Author Organization [facility] Medical Group Address [address] [place] [address] Care Team Providers Care Screw Down Name Role Phone Naren Ortega MD Primary Care Provider [phone] Reason for Visit * Reason Onset Date Comments Forms/questionnaires 12/07/2022 [employer] R x Encounter Details Date Type Department Care Team (Late st Contact Info) Description 12/07/2022 Telephone [facility] Medical Group Diabetes and Endocrinology [address] [place] [phone] [place] [address] [facility] [address] [place] [address] Forms/questionnaires ([employer] Rx) Social History Tobacco Use Types Packs/Day Years [...] on file 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 * Telephone Encounter - Matt Covarrubias MA - 12/07/2022 11:58 AM CDT [facility] 12/06/2022 SW NOV 01/26/2023 SW Rx received from [employer] via fax. Form completed and placed on FREDDY's desk for signature. Fax to [phone]. documented in this encounter Plan of Treatment Not on file documented as of this encounter Visit Diagnoses Not on filedocumented in this encounter Care Teams Screw Down Relationship Specialty Start Date End Date Naren Ortega MD [address] [place] [address] PCP - General Family Medicine 01/07/22 documented as of this encounter
--- OUTSIDE RECORDS SUMMARY | 2024-07-15 19:11 | XMS_ITS | Encounter Summary ---
Author Organization [facility] Medical Group Address [address] [place] [address] Care Team Providers Care Glaze Maker Name Role Phone Naren Ortega MD Primary Care Provider [phone] Encounter Details Date Type Department Care Team (Late st Contact Info) Description 11/02/2022 Orders Only [facility] Medical Group Diabetes and Endocrinology [address] [place] [phone] Provider, MD Samy [address] [place], [place] [id number] Social History Tobacco Use Types Packs/Day Years [...] on file 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 Gender Identity Not on file Sexual Orientation Not on file documented as of this encounter Plan of Treatment Not on file documented as of this encounter Procedures Procedure Name Priority Date/Time Associated Diagnosis Comments COMPREHENSIVE METABOLIC PANEL Routine 09/28/2022 HM ALBUMIN CREATININE RATIO, URINE Routine 09/27/2022 1:36 PM CDT ALBUMIN CREATININE RATIO, URINE Routine 09/27/2022 1:36 PM CDT HEMOGLOBIN A1C Routine 09/27/2022 1:36 PM CDT documented in this encounter Results * Comprehensive metabolic panel (09/28/2022) Blood Result [facility] Historical Provider LAB BLOOD ORDERABLES Carole l Result * (ABNORMAL) Hemoglobin A1c (09/27/2022 1:36 PM CDT) SCRIBED Hemoglobin A1c 8.7 <5.7 - NA % [facility] Blood 09/27/2022 1:36 PM CDT Result [facility] Historical Provider LAB BLOOD ORDERABLES Edit ed Result - Final [facility] * HM ALBUMIN CREATININE RATIO, URINE (09/27/2022 1:36 PM CDT) SCRIBED HM ALBUMIN CREATININE RATIO, URINE 5 <30 - NA [facility] Urine 09/27/2022 1:36 PM CDT Result [facility] Historical Provider HEALTH MAINTENANCE Edited Result - Final [facility] * Albumin Creatinine Ratio, Urine (09/27/2022 1:36 PM CDT) SCRIBED Creatinine, Urine 102 20 - 320 [facility] SCRIBED Microalbumin 0.5 NA - NA [facility] SCRIBED Microalb/Creat Ratio 5 <30 - NA [facility] Urine 09/27/2022 1:36 PM CDT Result [facility] Historical Provider LAB URINE ORDERABLES Edit ed Result - Final [facility] documented in this encounter Visit Diagnoses Not on filedocumented in this encounter Care Teams Glaze Maker Relationship Specialty Start Date End Date Naren Ortega MD [address] [place] [address] PCP - General Family Medicine 01/07/22 documented as of this encounter
--- OUTSIDE RECORDS SUMMARY | 2024-07-15 19:11 | XMS_ITS | Encounter Summary ---
Author Organization [facility] Medical Group Address [address] [place] [address] Care Team Providers Care Sales And Marketing Professional Name Role Phone Naren Ortega MD Primary Care Provider [phone] Encounter Details Date Type Department Care Team (Late st Contact Info) Description 11/15/2022 Telephone [facility] Medical Group Diabetes and Endocrinology [address] [place] [phone] [place] [address] 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 * Telephone Encounter - Yari Jimenez - 11/15/2022 12:57 PM CDT Received order for [employer] system via email Please complete and sign documented in this encounter Plan of Treatment Not on file documented as of this encounter Visit Diagnoses Not on filedocumented in this encounter Care Teams Sales And Marketing Professional Relationship Specialty Start Date End Date Naren Ortega MD [address] [place] [place] [address] PCP - General Family Medicine 01/07/22 documented as of this encounter
--- OUTSIDE RECORDS SUMMARY | 2024-07-15 19:11 | XMS_ITS | Encounter Summary ---
Author Organization [facility] Healthcare Address [address] [place] [address] Care Team Providers Care Roll Inspector Name Role Phone Naren Ortega MD Primary Care Provider Encounter Details Date Type Department Care Team (Latest Contact Info) Description 11/02/2022 12:47 PM CDT - 11/02/2022 11:59 PM CDT Hospital Encounter [address] [id number] Type 2 diabetes mellitus with hyperglycemia, with long-term current use of insulin ([facility]) ([facility]) Discharge Disposition: Discharge to home or self care Social History Tobacco Use Types Packs/Day Years [...] on file 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 Gender Identity Not on file Sexual Orientation Not on file documented as of this encounter Medications at Time of Discharge BD Danni 2nd Gen Pen Needle 32 gauge x 5/32 needle USE WITH DAILY INSULIN PEN 09/26/[address] (Cymbalta) 60 mg capsule Take 1 capsule (60 mg total) by mouth daily lisinopriL (PRINIVIL,ZESTRIL ) 5 mg tablet Take 1 tablet (5 mg total) by mouth daily 10/18/2022 metoprolol XL (TOPROL-XL) 25 mg extended release tablet Take 1 tablet (25 mg total) by mouth every morning 10/29/2022 SEMGLEE-yfgn 100 unit/mL (3 mL) pen for injection Inject 60 Units under the skin daily 08/09/2022 FreeStyle Nando 2 Sensor kit CHANGE SENSOR EVERY TWO WEEKS. 08/18/2022 01/25/2023 HumaLOG 200 unit/mL (3 mL) pen for injection INJECT 5 UNITS UNDER THE SKIN PRE-MEALS THREE TIMES A DAY 10/26/2022 11/29/2022 documented as of this encounter Discharge Disposition Disposition Code Departure Means Destination Discharge to home or self care documented in this encounter Plan of Treatment Not on file documented as of this encounter Procedures Procedure Name Priority Date/Time Associated Diagnosis Comments EGFR Routine 11/02/2022 12:47 PM CDT Type 2 diabetes mellitus with hyperglycemia, with long-term current use of insulin ([facility]) ([facility]) GLUTAMIC ACID DECARBOXYLASE Routine 11/02/2022 12:47 PM CDT Type 2 diabetes mellitus with hyperglycemia, with long-term current use of insulin ([facility]) ([facility]) C-PEPTIDE Routine 11/02/2022 12:47 PM CDT Type 2 diabetes mellitus with hyperglycemia, with long-term current use of insulin ([facility]) ([facility]) LIPID PANEL Routine 11/02/2022 12:47 PM CDT Type 2 diabetes mellitus with hyperglycemia, with long-term current use of insulin ([facility]) ([facility]) COMPREHENSIVE METABOLIC PANEL Routine 11/02/2022 12:47 PM CDT Type 2 diabetes mellitus with hyperglycemia, with long-term current use of insulin ([facility]) ([facility]) documented in this encounter Results * eGFR (11/02/2022 12:47 PM CDT) eGFR [...] BLOOD ORDERABLES Final Resul t [facility] [address] [place] [address] * (ABNORMAL) Glutamic acid decarboxylase (11/02/2022 12:47 PM CDT) GAD65 ab ser 0.24(H) <=0.02 nmol/L [facility] Comment: The following antibody was identified: Glutamic Acid Decarboxylase. * This profile is consistent with predisposition to thyrogastric disorders, including thyroiditis, pernicious anemia, and type 1 diabetes, but has low specificity for neurological autoimmunity. ??GAD65 antibody values less than 2.00 nmol/L have a lower positive predictive value for neurological autoimmunity than values of 20.0 nmol/L and ??higher. * ADDITIONAL INFORMATION This test was developed and its performance characteristics determined by [facility] in a manner consistent with CLIA requirements. This test has not been cleared or approved by the U.S. Food and Drug Administration. Test Performed by: [address] [address] Credit Officer: Giorgio Payne M.D. Ph.D.; CLIA# [id number] Blood 11/02/2022 12:4 7 PM CDT 11/02/2022 6:09 PM CDT us Herman Boone MD LAB BLOOD ORDERABLES Final Resul t Performing Organization Address City/Va Hospital/ZIP Co de Phone Number [facility] [address] [place] [address] * C-peptide (11/02/2022 12:47 PM CDT) Pathologist [facility] C-peptide 2.23 1.10 - 4.40 ng/mL [facility] Comment:Testing performed by : [facility], [address] [facility], [place]., [address] Blood 11/02/2022 12:4 7 PM CDT 11/03/2022 9:51 AM CDT us Herman Boone MD LAB BLOOD ORDERABLES Final Resul t Performing Organization Address City/[facility] Hospital/ZIP Co de Phone Number [facility] [address] [place], [place] [phone] * (ABNORMAL) Comprehensive metabolic panel (11/02/2022 12:47 PM CDT) Sodium 134(L) 135 - 145 mmol/L [facility] Potassium, pl 4.4 3.3 - 4.9 mmol/L [facility] Chloride 97 97 - 110 mmol/L [facility] CO2 24 22 - 32 mmol/L [facility] Anion gap 13 2 - 15 mmol/L [facility] BUN 22 8 - 25 mg/dL [facility] Creatinine 0.95 0.80 - 1.30 mg/dL [facility] Glucose 270(H) 70 - 199 mg/dL [facility] Comment: Interpretive Data Fasting glucose >/= 126 mg/dl is diagnostic for diabetes. ?? Fasting is defined as no caloric intake for at least 8 hours. Fasting glucose between 100 mg/dl to 125 mg/dl is diagnostic of prediabetes. In a patient with classic symptoms of hyperglycemia or hyperglycemic crisis, a random glucose >/= 200 mg/dl is diagnostic for diabetes. In the absence of unequivocal hyperglycemia, results should be confirmed by repeat testing. The classification and Diagnosis of Diabetes Diabetes Care 202; 46: S19-S40. Current interpretive data was last revised 2022. Calcium 9.8 8.5 - 10.3 mg/dL [facility] Bilirubin, total 1.0 0.1 - 1.2 mg/dL [facility] Protein, pl 7.2 6.5 - 8.5 g/dL [facility] Albumin 4.4 3.5 - 5.0 g/dL [facility] Alk phos 95 40 - 130 Units/L [facility] ALT 29 7 - 55 Units/L [facility] AST 25 10 - 50 Units/L [facility] Blood 11/02/2022 12:4 7 PM CDT 11/02/2022 6:09 PM CDT us Herman Boone MD LAB BLOOD ORDERABLES Final Resul t [facility] [address] [place] [address] * Lipid panel (11/02/2022 12:47 PM CDT) Cholesterol 150 30 - 199 mg/dL [facility] Comment: Interpretive Data Ages < or = [...] BLOOD ORDERABLES Final Resul t [facility] [address] [place] [address] documented in this encounter Visit Diagnoses Diagnosis Type 2 diabetes mellitus with hyperglycemia, with long-term current use of insulin (HCC) documented in this encounter Care Teams Roll Inspector Relationship Specialty Start Date End Date Naren Ortega MD [address] [place] [address] PCP - General Family Medicine 01/07/22 documented as of this encounter
--- OUTSIDE RECORDS SUMMARY | 2024-07-15 19:11 | XMS_ITS | Encounter Summary ---
Author Organization [facility] Medical Group Address [address] [place] [address] Care Team Providers Care Boring Mill Operator Name Role Phone Naren Ortega MD Primary Care Provider [phone] Reason for Visit * Reason Onset Date Comments Appointment 11/29/2022 Encounter Details Date Type Department Care Team (Late st Contact Info) Description 11/29/2022 Telephone [facility] Specialists [facility] [address] [facility] [address], [place] [address] [place] [address] [facility] [address] [place], [place] [phone] Appointment Social History Tobacco Use Types Packs/Day Years [...] on file 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 * Telephone Encounter - Antonella Alan PA - 11/29/2022 9:47 AM CDT Pt here for pump training. He only has U200 pens. I gave him 2 vials of Fiasp and sent in rx for [id number] vials going forward. documented in this encounter Plan of Treatment Not on file documented as of this encounter Visit Diagnoses Not on filedocumented in this encounter Discontinued Medications Medication Sig Discontinue Reason Start Date End Da te HumaLOG 200 unit/mL (3 mL) pen for injection INJECT 5 UNITS UNDER THE SKIN PRE-MEALS THREE TIMES A DAY 10/26/2022 11/29/2022 documented as of this encounter Care Teams Boring Mill Operator Relationship Specialty Start Date End Date Naren Ortega MD [address] [place] [address] PCP - General Family Medicine 01/07/22 documented as of this encounter
--- OUTSIDE RECORDS SUMMARY | 2024-07-15 19:11 | XMS_ITS | Encounter Summary ---
Author Organization [facility] Address [address] [place] [address] Care Team Providers Care Aluminum Pool Installer Name Role Phone Naren Ortega MD Primary Care Provider Reason for Visit * Reason Comments Diabetes Type 2 Encounter Details Date Type Department Care Team (Late st Contact Info) Description 11/02/2022 12:00 PM CDT Office Visit [facility] Diabetes and Endocrinology [address] [place] [id number] [place] [address] [facility] [address] [place] [address] Type 2 diabetes mellitus with hyperglycemia, with [...] file 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 Gender Identity Not on file Sexual Orientation Not on file documented as of this encounter Last Filed Vital Signs Vital Sign Reading Time Taken Comments Blood Pressure 104/76 11/02/2022 12:04 PM CDT Pulse 110 11/02/2022 12:04 PM CDT Temperature - - Respiratory Rate 14 11/02/2022 12:04 PM CDT Oxygen Saturation - - Inhaled Oxygen Concentration - - Weight 98.9 kg (218 lb) 11/02/2022 12:04 PM CDT Height 175.3 cm (5' 9 ) 11/02/2022 12:04 PM CDT Body Mass Index 32.19 11/02/2022 12:04 PM CDT documented in this encounter Patient Instructions * Patient Instructions* Herman Boone MD - 11/02/2022 12:00 PM CDT Your Hba1c today was: Lab Results Component Value Date HGBA1C 9.1 11/02/2022 meaning a 3 month average sugar of : 217 Your goal hba1c is under 7.0 to prevent senior care diabetes complications ( eye , kidney and nerve damage ) . Your goal sugars are in the 90-130 range Exercise recommendations: Aerobic ( walking, riding a bike, swimming ) and resistance exercises ( light weight lifting, resistance band stretching ) for at least 30 minutes , most days of the week. If you can not walk, chair exercises for 10-15 min a day still help tremendously. As little as 5-10 minutes exercise , in one or two sessions a day, is still very helpful to improveyour diabetes control . Eating recommendations: Eat 45-60 g of carbohydrates at each meal. Eat 3 meals per day and try to eat at consistent times Eat small portion meals, trying not to consume more than 1800 calories a day . Try to eat not more than than 2-3 servings of carbs ( starches ) wiith your meals. Avoid concentrated sweets such as cookies, cake, candy and ice cream. Also, avoid sugar-sweetened beverages such as lemonade, sweet tea, regular soda, juice and Gatorade. Drink water instead. Eat plenty of green and leafy vegetables, including salads. Medications: Continue monitoring your sugars with the Freestyle Nando Stay on Semglee, take 50 units at bedtime Take Humalog, 10 units before meal For sugars over 180, take 12 units For sugars over 220, take 13 units For sugars over 260, take 14 units For sugars over 300, take 15 units Send me a message every week on [employer], for us to look at your Freestyle Nando data documented in this encounter Progress Notes * Herman Boone MD - 11/02/2022 12:00 PM CDT Subjective/Objective Patient ID: Shane Wheeler is a 37 y.o. male. Chief Complaint Diabetes Type 2 HPI Consult requested by Dr Ortega for uncontrolled diabetes Mr. Wheelre telling me he was diagnosed with diabetes around age 26. He recalls at that time feelingunwell and being in the hospital for a short period of time. He was started on metformin, which he took for a very short period of time. During much he did not pay any attention to his diabetes untillasfebruary when he got sick and was admitted to the hospital in DKA. 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 Date of last eye examination: last year had inflammation to the eye Review of Systems Constitutional: Negative for activity [...] intolerance, heat intolerance, polydipsia, polyphagia and polyuria. ED Genitourinary: Negative for difficulty urinating, frequency and urgency. Musculoskeletal: Negative for arthralgias, back pain, gait problem and neck pain. Skin: Negative for color change. Allergic/Immunologic: Negative for food allergies. Neurological: Positive for numbness. Negative for dizziness, tremors, syncope, weakness, light-headedness and headaches. Hematological: Negative for adenopathy. Psychiatric/Behavioral: [...] soft. Musculoskeletal: General: Normal range of motion. Feet: Right Foot: Monofilament exam: normal. Protective Sensation: 3 sites tested. 3 sites sensed. Skin Integrity: Positive for callus and dry skin. Left Foot: Monofilament exam: normal. Protective Sensation: 3 sites tested. 3 sites sensed. Skin Integrity: Positive for callus and dry skin. Skin: General: Skin is warm. Neurological: Mental Status: He is alert and oriented to person, place, and time. Motor: Motor function is intact. Psychiatric: Behavior: Behavior normal. Assessment/Plan Diagnoses and all orders for this visit: Type 2 diabetes mellitus with hyperglycemia, with long-term current use of insulin ([facility]) (HCC) (E11.65, Z79.4) (Primary) Assessment & Plan: [...] advised to send me a message via [employer] every week or every other week so we can look at his freestyle Nando data for more advice The patient also benefit from an insulin pump. Will try to start process for mini med Medtronic 770G Orders: - POCT hemoglobin A1c - POCT glucose - Glutamic acid decarboxylase; Future - C-peptide; Future - Comprehensive metabolic panel; Future - Lipid panel; Future documented in this encounter Miscellaneous Notes * Assessment & Plan Note - Herman Boone MD - 11/02/2022 4:27 PM CDTAssociated Problem(s): Type 2 diabetes mellitus with hyperglycemia, with long-term current use of insulin ([facility]) Hba1c was Lab Results Component Value Date [...] advised to send me a message via [employer] every week or every other week so we can look at his freestyle Nando data for more advice The patient also benefit from an insulin pump. Will try to start process for mini med Medtronic 770G documented in this encounter Plan of Treatment Not on file documented as of this encounter Procedures Procedure Name Priority Date/Time Associated Diagnosis Comments POCT HEMOGLOBIN A1C Routine 11/02/2022 1 2:09 PM CDT Type 2 diabetes mellitus with hyperglycemia, with long-term current use of insulin ([facility]) ([facility]) POCT GLUCOSE Routine 11/02/2022 12:09 PM CDT Type 2 diabetes mellitus with hyperglycemia, with long-term current use of insulin ([facility]) ([facility]) documented in this encounter Results * Lipid panel (11/02/2022 12:47 PM CDT) [...] last revised on 2018. Chol/HDL ratio 3 [facility] Blood 11/02/2022 12:4 7 PM CDT 11/02/2022 6:09 PM CDT us Hermna Boone MD LAB [place]LOOD [place] [id number] [address] Department [place] [address] * (ABNORMAL) Comprehensive metabolic panel (11/02/2022 12:47 [...] CH AST 25 10 - 50 Units/L [facility] Blood 11/02/2022 12:4 7 PM CDT 11/02/2022 6:09 PM CDT Herman Boone MD LAB BLOOD ORDERABLES Final Resul t Performing Organization Address City/[facility] Co de Phone Number [facility] [address] [address] [facility] [place] [address] * C-peptide (11/02/2022 12:47 PM CDT) C-peptide 2.23 1.10 - 4.40 ng/mL [facility] Comment:Testing performed by : [facility], [address], [place]., [address] Blood 11/02/2022 12:4 7 PM CDT 11/03/2022 9:51 AM CDT Herman Boone MD LAB BLOOD ORDERABLES Final Resul t Performing Organization Address [facility] de Phone Number [facility] [address] [address] [place] [address] * (ABNORMAL) Glutamic acid decarboxylase (11/02/2022 12:47 PM CDT) GAD65 ab ser 0.24(H) <=0.02 nmol/L [facility] Comment: The following antibody was identified: Glutamic [...] developed and its performance characteristics determined by [facility] in a manner consistent with CLIA requirements. This test has not been cleared or approved by the U.S. Food and Drug Administration. Test Performed by: [facility] [place] [address] Pack Out Operator: Giorgio Payne M.D. Ph.D.; CLIA# [id number] Blood 11/02/2022 12:4 7 PM CDT 11/02/2022 6:09 PM CDT us Herman Boone MD LAB BLOOD ORDERABLES Final Resul t [place] [facility] [address] [address] Department [place] [address] * (ABNORMAL) POCT glucose (11/02/2022 12:09 PM CDT) Glucose Blood, POC 252 mg/dL Blood 11/02/2022 12:0 9 PM CDT Result [facility] us Herman Boone MD POINT OF CARE TEST ORDERABLES Fi nal Result * (ABNORMAL) POCT hemoglobin A1c (11/02/2022 12:09 PM CDT) Hemoglobin A1C, POC 9.1 % Blood 11/02/2022 12:0 9 PM CDT Result [facility] us Herman Boone MD POINT OF CARE TEST ORDERABLES Fi nal Result documented in this encounter Visit Diagnoses Diagnosis Type 2 diabetes mellitus with hyperglycemia, with long-term current use of insulin (HCC)- Primary documented in this encounter Historical Medications * This list may reflect changes made after this encounter. DULoxetine DR (Cymbalta) 60 mg capsule Take 1 capsule (60 mg total) by mouth daily BD Danni 2nd Gen Pen Needle 32 gauge x /32 needle USE WITH DAILY INSULIN PEN 09/26/2022 lisinopriL (PRINIVIL,ZESTRIL ) 5 mg tablet Take 1 tablet (5 mg total) by mouth daily 10/18/2022 SEMGLEE-yfgn 100 unit/mL (3 mL) pen for injection Inject 60 Units under the skin daily 08/09/2022 HumaLOG 200 unit/mL (3 mL) pen for injection INJECT 5 UNITS UNDER THE SKIN PRE-MEALS THREE TIMES A DAY 10/26/2022 11/29/2022 FreeStyle Nando 2 Sensor kit CHANGE SENSOR EVERY TWO WEEKS. 08/18/2022 01/25/2023 added in this encounter Care Teams Aluminum Pool Installer Relationship Specialty Start Date End Date Naren Ortega MD [address] [place] [address] PCP - General Family Medicine 01/07/22 documented as of this encounter
--- OUTSIDE RECORDS SUMMARY | 2024-07-15 19:11 | XMS_ITS | Encounter Summary ---
Author Organization [facility] Address [address] [place] [address] Care Team Providers Care Scientologist Name Role Phone Naren Ortega MD Primary Care Provider [phone] Reason for Visit * Reason Comments Follow-up TYPE 2 DM Encounter Details Date Type Department Care Team (Late st Contact Info) Description 12/06/2022 3:00 PM CDT Office Visit [facility] [address] [address] [place] [address] [facility] [address] [place], [place] [id number] Type 2 diabetes mellitus with hyperglycemia, with [...] on file 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 Gender Identity Not on file Sexual Orientation Not on file documented as of this encounter Last Filed Vital Signs Vital Sign Reading Time Taken Comments Blood Pressure 110/68 12/06/2022 2:58 PM CDT Pulse 105 12/06/2022 2:58 PM CDT Temperature - - Respiratory Rate 16 12/06/2022 2:58 PM CDT Oxygen Saturation - - Inhaled Oxygen Concentration - - Weight 100.9 kg (222 lb 6.4 oz) 12/06/2022 2:58 PM CDT Height 175.3 cm (5' 9 ) 12/06/2022 2:58 PM CDT Body Mass Index 32.84 12/06/2022 2:58 PM CDT documented in this encounter Progress Notes * Antonella Alan PA - 12/06/2022 3:00 PM CDT Images from the original note were not included. [facility] Diabetes Follow Up Visit Subjective/Objective Patient ID: Shane Wheeler is a 37 y.o. male who comes in today to our Endocrinology clinic to follow up for DM management. Chief Complaint Follow-up (TYPE 2 DM) HPI DM diagnosed around 26 YO. On PO meds until 03/08 when he was admitted in DKA and started on insulin. In 11/07 he had + ROSALIA Ab with detectable c-peptide (2.23). Diabetes complications and/or comorbidity include: h/o DKA Current medications: Started on Medtronic 770 with Humalog on 11/29/22 BR 1.25 CR 7 SF 30 [employer] 110 AIT 4 hrs Dietary habits: 2 meals/day Exercise routine: limited Home CBG monitoring results: checks blood sugars 4x/day via Medtronic Guardian CGM. He is not wearing this today. His pump site ran out and his CGM was not charged. Neuropathy: no complaints. Last foot exam: 11/07 Statin therapy: No. Last lipid panel: 11/07. Nephropathy: On [place]-I / ARB???s: Yes. Lisinopril 5 mg. Last MA: 10/07. Last creat/GFR: 11/07. Retinopathy: Date of last eye examination: in the past year Wt Readings from Last 3 Encounters: 12/06/22 100.9 kg (222 lb 6.4 oz) 11/02/22 98.9 kg (218 lb) Labs: Last A1c: Recent Labs Lab Units 12/06/22 1507 HEMOGLOBIN A1C % 9.4 No lab exists for component: [id number] Component Latest Ref Rng & Units 11/02/2022 Hgb A1C % 9.1 Component Latest Ref Rng & Units 11/02/2022 GAD65 ab ser <=0.02 nmol/L 0.24 (H) Component Latest Ref Rng & Units 11/02/2022 C-Peptide, Serum 1.10 - 4.40 ng/mL 2.23 Component Latest Ref Rng & Units 09/27/2022 SCRIBED Creatinine, Urine 20 - 320 102 SCRIBED Microalbumin NA - NA 0.5 SCRIBED Microalb/Creat Ratio <30 - NA 5 Lipid profile within the last year: Lab Results Component Value Date CHOL 150 11/02/2022 Lab Results Component Value Date TRIG 113 11/02/2022 Lab Results Component Value Date HDL 48 11/02/2022 Lab Results Component Value Date LDLCALC 79 11/02/2022 Review of Systems Constitutional: Negative. Eyes: Negative. Respiratory: Negative. Cardiovascular: Negative. Gastrointestinal: Negative. Endocrine: Negative. Genitourinary: Negative. Skin: Negative. Neurological: Negative. Psychiatric/Behavioral: Negative. Vitals: 12/06/22 1458 BP: 110/68 BP Location: Right arm Patient Position: Sitting Pulse: 105 Resp: 16 Weight: 100.9 kg (222 lb 6.4 oz) Height: 175.3 cm (5' 9 ) Physical [...] hyperglycemia, with long-term current use of insulin ([facility]) ([facility]) (Primary) Assessment & Plan: Chronic problem, not at goal. He was not wearing his pump today as his pump site and CGM ended earlier today. We walked through placing a new pump and started a new CGM. I sent a note to [employer] up with patient, especially concerning site changes going forward and to check in with him about starting auto mode as I was unable to do this today since the sensor was warming up. I did not make any pump changes today. I reviewed his pump history and his total daily CHO input isonly 42 grams CHO so seems likely he is underestimating. But will download and review next visit toreevaluate especially once he's in auto mode. Orders: - POCT hemoglobin A1c - POCT glucose Insulin pump status Assessment & Plan: No pump setting changes. My total encounter time on 12/06/2022 was 45 minutes which was spent in the activities documented inthe note. This includes time spent prior to the visit and after the visit in direct care of the patient. This time does not include time spent in any separately reportable services. KODAK Rodas documented in this encounter Miscellaneous Notes * Assessment & Plan Note - Antonella Alan PA - 12/06/2022 4:47 PM CDT Associated Problem(s): Insulin pump status No pump setting changes. * Assessment & Plan Note - Antonella Alan PA - 12/06/2022 4:44 PM CDT Associated Problem(s): Type 2 diabetes mellitus with hyperglycemia, with long- term current use of insulin (HCC) Chronic problem, not at goal. He was not wearing his pump today as his pump site and CGM ended earlier today. We walked through placing a new pump and started a new CGM. I sent a note to [employer]ill[employer] up with patient, especially concerning site changes going forward and to check in with him about starting auto mode as I was unable to do this today since the sensor was warming up. I did not make any pump changes today. I reviewed his pump history and his total daily CHO input isonly 42 grams CHO so seems likely he is underestimating. But will download and review next visit toreevaluate especially once he's in auto mode. documented in this encounter Plan of Treatment Not on file documented as of this encounter Procedures Procedure Name Priority Date/Time Associated Diagnosis Comments POCT HEMOGLOBIN A1C Routine 12/06/2022 3 :07 PM CDT Type 2 diabetes mellitus with hyperglycemia, with long-term current use of insulin ([facility]) ([facility]) POCT GLUCOSE Routine 12/06/2022 3:07 PM CDT Type 2 diabetes mellitus with hyperglycemia, with long-term current use of insulin ([facility]) ([facility]) documented in this encounter Results * (ABNORMAL) POCT hemoglobin A1c (12/06/2022 3:07 PM CDT) Hemoglobin A1C, POC 9.4 % Capillary blood 12/06/2022 3 :07 PM CDT Antonella CANDELARIO POINT OF CARE TEST ORDE RABLES Final Result * (ABNORMAL) POCT glucose (12/06/2022 3:07 PM CDT) Glucose Blood, POC 191 mg/dL Capillary blood 12/06/2022 3 :07 PM CDT Antonella CANDELARIO POINT OF CARE TEST ORDE RABLES Final Result documented in this encounter Visit Diagnoses Diagnosis Type 2 diabetes mellitus with hyperglycemia, with long-term current use of insulin ([facility])- Primary Insulin pump status documented in this encounter Historical Medications * This list may reflect changes made after this encounter. tadalafiL (CIALIS) 5 mg tablet TAKE 2 TABLETS BY MOUTH ONCE DAILY NEEDED MAY TAKE ALONG WITH 100 MG VIAGRA 11/20/2022 sildenafiL (VIAGRA) 100 mg tablet TAKE 1 TABLET BY MOUTH ONCE A WEEK NEEDED 11/20/2022 metoprolol XL (TOPROL-XL) 25 mg extended release tablet Take 1 tablet (25 mg total) by mouth every morning 10/29/2022 added in this encounter Care Teams Scientologist Relationship Specialty Start Date End Date Naren Ortega MD [address] [place] [address] PCP - General Family Medicine 01/07/22 documented as of this encounter
--- OUTSIDE RECORDS SUMMARY | 2024-07-15 19:11 | XMS_ITS | Encounter Summary ---
Author Organization [facility] Address [address] [place] [address] Care Team Providers Care Crab Steamer Name Role Phone Naren Ortega MD Primary Care Provider [phone] Reason for Visit * Reason Onset Date Comments Forms/questionnaires 11/05/2022 [employer]- [facility] Encounter Details Date Type Department Care Team (Late st Contact Info) Description 11/05/2022 Telephone [facility] [address] [address] [place] [address] [facility] [address] [place] [address] [facility]naires [facility] Social History Tobacco Use Types Packs/Day Years [...] on file 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 * Telephone Encounter - Antonella Alan PA - 11/15/2022 9:02 AM CDT Orders completed, will be on your desk at [facility]. * Telephone Encounter - Yari Jimenez - 11/12/2022 2:52 PM CDT Received minimed 770G systems settings form On your desk * Telephone Encounter - Seda Walter MA - 11/09/2022 3:07 PM CDT Call [facility] asking to send the form again since is missing the TDD. TDD of 50 added and form faxed at [phone] to Chris Soriano Through [employer]. * Telephone Encounter - Mila Wallace MA - 11/09/2022 1:46 PM CDT Email received from Chris Trujillo requesting the pump supply section on the SMN form be completed and the form be refaxed to [employer] at [phone]. Form updated and faxed through [employer] * Telephone Encounter - Matt Covarrubias MA - 11/09/2022 11:36 AM CDT Signed form and [facility] chart notes faxed to [employer] at [phone] via [employer]. * Telephone Encounter - Matt Covarrubias MA - 11/05/2022 2:57 PM CDT [facility] 11/02/22 FR [facility]VS CMN received from [employer] [facility]. Form completed and placed on 's desk for signature. Please fax to [phone] with [facility] chart notes. documented in this encounter Plan of Treatment Not on file documented as of this encounter Visit Diagnoses Not on filedocumented in this encounter Care Teams Crab Steamer Relationship Specialty Start Date End Date Naren Ortega MD [address] [place] [address] PCP - General Family Medicine 01/07/22 documented as of this encounter
--- OUTSIDE RECORDS SUMMARY | 2024-07-15 19:11 | XMS_ITS | Encounter Summary ---
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
--- OUTSIDE RECORDS SUMMARY | 2024-07-15 19:12 | XMS_ITS | Continuity of Care Document ---
Author Organization [facility] Address [address] [address] [place] [address] Phone Care Team Providers Care Rapid Outsole Stitcher Name Role Phone Naren Ortega MD Unavailable Unavailable Allergies, Adverse Reactions, Alerts Substance Reaction Status Criticality No Known Allergies Active No Inform ation Medications Medication Instructions Dosage Effective Dates (start - stop) Status Comments Humalog U-100 Insulin 100 unit/mL subcutaneous solution inject by subcutaneous route per prescriber's instructions. Insulin dosing requires individualization. 0.00 - Active Pen Needle 32 gauge x 5/32 use with daily insulin pen - Active pen needle, diabetic 31 gauge x 1/4 use once daily with insulin glargine - Active FreeStyle Nando 2 Sensor kit change sensor every two weeks. - Active E11.9 Procedures Procedure Date PREV VISIT, EST, AGE 18-39 OFFICE/OUTPATIENT VISIT, EST OFFICE/OUTPATIENT VISIT, EST PREV VISIT, EST, AGE 18-39 OFFICE/OUTPATIENT VISIT, EST OFFICE/OUTPATIENT VISIT, EST OFFICE/OUTPATIENT VISIT, EST OFFICE/OUTPATIENT VISIT, EST OFFICE/OUTPATIENT VISIT, EST OFFICE/OUTPATIENT VISIT, EST OFFICE/OUTPATIENT VISIT, EST PREV VISIT, NEW, AGE 18-39 OFFICE/OUTPATIENT VISIT, NEW Advance Directives Directive Yes / No Effective Date File Name No Information Encounters Encounter Description Practice Location Reason(s) For Visit Diagnoses Date Provider Providers Copied on Encounter PREV VISIT, EST, AGE 18-39 [facility], [address], [place], [address], [place] tel:[phone] [facility] physical (chief complaint) Encounter for general adult medical examination without abnormal findings Sep-3 4 Jordan Sneed. [address], [place], [address]. tel:[phone] OFFICE/OUTPA TIENT VISIT, [facility], [address], [place], [address], [place] tel:[phone] [facility] Medicine toe (chief complaint) anxiety1 (chief complaint) anemia1 (chief complaint) Cellulitis of right toeAnemiaGeneralize d Anxiety Disorder Mar- 3 Jordan Sneed. [address], [address], [place], [address]. [phone] OFFICE/OUTPA TIENT VISIT, [facility], [address], [place], [address], [place] tel:[phone] [facility] anxiety1 (chief complaint) ED (chief complaint) DM (chief complaint) anemia1 (chief complaint) Generalized Anxiety DisorderAnemiaMale erectile dysfunction, unspecifiedType 2 diabetes mellitus without complications Fili- 3 Jordan Sneed. [address], [place], [address]. tel:[phone] PREV VISIT, EST, AGE 18-39 [facility], [address], [place], [address], [place] tel:[phone] [facility] physical (chief complaint) Encounter for general adult medical exam w abnormal findingsType 2 diabetes mellitus without complicationsGenera lized Anxiety DisorderTachycardia Male erectile dysfunction, unspecifiedAnemia Sep- 3 Jordan Sneed. [address], [place], [address]. tel:[phone] OFFICE/OUTPA TIENT VISIT, [facility], [address], [place], [address], [place] tel:[phone] [facility] DKA (chief complaint) tachycardi a1 (chief complaint) anxiety1 (chief complaint) Essential (primary) hypertensionGeneral ized Anxiety DisorderType 2 diabetes mellitus with ketoacidosis without comaTachycardia 3 Ortega Naren. [address], [place], [address]. tel:[phone] [facility], [address], [place], [address], tel:[phone] [facility] No Information 2 Ortega Naren. [address], [address], [place], [address]. tel:[phone] [facility], [address], [place], [address], tel:[phone] [facility] No Information 2 Ortega Naren. [address], [place], [address]. tel:[phone] OFFICE/OUTPA TIENT VISIT, [facility], [address], [place], [address], [place] tel:[phone] [facility] DM (chief complaint) Type 2 diabetes mellitus without complications 2 Ortega Naren. [address], [place], [address]. tel:[phone] OFFICE/OUTPA TIENT VISIT, [facility], [address], [place], [address], [place] tel:[phone] [facility] DM (chief complaint) diarrhea1 (chief complaint) anxiety1 (chief complaint) HTN (chief complaint) Essential (primary) hypertensionGeneral ized Anxiety DisorderType 2 diabetes mellitus without complicationsGastro paresisPain in right shoulder 2 Ortega Naren. [address], [place], [address]. tel:[phone] OFFICE/OUTPA TIENT VISIT, [facility], [address], [place], [address], [place] tel:[phone] [facility] DKA1 (chief complaint) anxiety1 (chief complaint) Type 2 diabetes mellitus with ketoacidosis without comaEssential (primary) hypertensionGastrop aresisGeneralized Anxiety Disorder 2 Jordan Hubbard [address], [place], [address]. tel:[phone] OFFICE/OUTPA TIENT VISIT, [facility], [address], [place], [address], [place] tel:[phone] [facility] anxiety1 (chief complaint) anxiety1 (chief complaint) Generalized Anxiety DisorderPain in right shoulder 2 Jordan Hubbard [address], [place], [address]. tel:[phone] OFFICE/OUTPA TIENT VISIT, [facility], [address], [place], [address], tel:[phone] [facility] depression 1 (chief complaint) shoulder pain1 (chief complaint) DM (chief complaint) Pain in right shoulderGeneralized Anxiety DisorderType 2 diabetes mellitus without complications 2 Jordan Sneed. [address], [place], [address]. tel:[phone] PREV VISIT, NEW, AGE 18-39 [facility], [address], [place], [address], [place] tel:[phone] [facility] physical (chief complaint) Encounter for general adult medical exam w abnormal findingsType 2 diabetes mellitus without complicationsPain in right shoulder 2 Jordan Sneed. [address], [place], [address]. tel:[phone] Family History Family Member Type Diagnosis Age At Onset Father Problem unknown Mother Problem Alive and well Sister Problem Alive and well Payers Payer name Insurance type Covered alliance party ID Authoriza tion(s) No Information Social History Type Description Quantity Date Captured Comments Alcohol Use Details beer & liquor Caffeine Use Details Unknown Tobacco Use Status Current non-smoker Smoking Status Never smoker Sex Male Vital Signs Date / Time: Height Weight BMI Pulse Rate Blood Pressure Temperature Respiratory Rate Body Surface Area Head Circumference BMI percentile Pulse Ox Inhaled Ox 9:58 AM 69.00 in 214.60 lbs 31.6 9 kg/m eter (2) 108 /min 130/86 mm[Hg] 97.0 F 16 /min Chief Complaint And Reason For Visit From encounter dated '04/16/2024 09:55'. physical (chief complaint). Description: Pt needs annual physical. pt sees endo and he is on humalog by insulin pump and also pre-meal as well. Pt missed appointment with endo and he is out of insulin and his endo will not refill his insulin and told him to see me for insulin refills .Pt states that his glucose is around 150-200. Pt denies any neuropathy Pt is off lisinopril Pt is off lexapro Pt states that his mood is ok. Pt also sees urology and will have procedure done for ED Pt is off ED meds .Pt denies any other complaints Plan Of Treatment Date Type Action Status Referral Ordered: Podiatry (related to Cellulitis of right toe) ordered Referral Ordered: Referrals: Podiatry. Evaluate and treat ordered Referral Ordered: Urology (related to Male erectile dysfunction, unspecified) ordered Referral Ordered: Krystle Caruso -Allopathic & Osteopathic Physicians : Internal Medicine : Endocrinology, Diabetes & Metabolism (related to Type 2 diabetes mellitus without complications) ordered Referral Referred To: Krystle Caruso [address] [facility]
[address], [place] [phone] Ordered: Referrals: Allopathic & Osteopathic Physicians : Internal Medicine : Endocrinology, Diabetes & Metabolism. Krystle Caruso. Evaluate and treat ordered Referral Ordered: Referrals: Urology. Evaluate and treat ordered Referral Referred To: Clark MORRIS, Lio Tamez S [facility] Of
[address] [place], [place], [id number] Ordered: Referrals: Clark MORRIS, Lio Macias. Evaluate and treat ordered Referral Ordered: Physical Therapy (related to Pain in right shoulder) ordered Referral Ordered: US EXAM, EXTREMITY ordered Referral Referred To: Physical Therapy Ordered: Referrals: Physical Therapy. Evaluate and treat ordered History Of Present Illness Encounter Date Complaint History Of Huber nt Illness physical Pt needs annual physical. pt sees endo and he is on humalog by insulin pump and also pre-meal as well. Pt missed appointment with endo and he is out of insulin and his endo will not refill his insulin and told him to see me for insulin refills .Pt states that his glucose is around 150-200. Pt denies any neuropathy Pt is off lisinopril Pt is off lexapro Pt states that his mood is ok. Pt also sees urology and will have procedure done for ED Pt is off ED meds .Pt denies any other complaints toe Pt tried to pick on the callous right big toe since two weeks ago and he notices bleeding and dark scabbing with some foul smelling drainage right big toe with skin sloughing off. Pt did virtual visit with his endo two weeks ago and he was started on bactrim which he finished last week but the toe did not improve. Pt did have some redness around right big toe. Pt denies any worsening numbness or tingling Pt notices mild pain. Pt denies any fever anxiety1 Pt has chronic a nxiety and depression. Pt doing ok with lexapro Pt denies any suicidal or homicidal thought Pt denies any crying spells anemia1 Pt has mild norm ocytic anemia Pt denies any bleeding Pt has not done repeat lab yet. anxiety1 Pt has chronic a nxiety and depression Pt takes cymbalta but he beltre snot think it is working Pt denies any suicidal or homicidal thought Pt denies any crying spells Pt still feels rather depressed. ED Pt has ED. Pt ta kes cialis daily and he takes viagra PRn on top of daily cialis but it is still not working Pt has good libido but he has Ed Pt had lab done including testosterone which were all normal from urology per patient Pt denies any testicular pain, atrophy or nodule. DM Pt is seeing end o now and he was diagnosed with latent type I DM and he is on insulin pump now. His glucose is around 219 on average. Pt denies any neuropathy symptoms anemia1 Pt has mild norm ocytic anemia Pt denies any bleeding Pt has not done repeat lab yet. physical Pt needs annual physical pt has DM Pt uses insulin glargine 55 units daily and humalog TID pre meal Pt denies any neuropathy. Pt has HTN ,pt takes lisinopril and his bp is ok Pt weaned himself off metoprolol. Pt denies any chest pain or tachycardia or palpitation Pt has mild normocytic anemia <pt denies any blood loss Pt c/o ED for several years Pt saw urology and was given cialis and viagra but did not help Pt has good libido Pt denies any testicular pain, atrophy or nodule. Pt states that his glucose is around 200 at home. his A1c improved slightly. Pt has anxiety and depression and he is doing ok with cymbalta DKA Pt is noncomplia nt and he run out of insulin and developed acute DKA recently and he was admitted to hospital and received insulin drop and he in on lantus 50 units and humalog 5 units pre-meal now Pt states that his glucose was around 200 before running out of insulin. Pt denies any abd pain, nausea, vomiting and he feels ok now. Pt has normal UO and appetite tachycardia1 Pt developed alvaro e tachycardia while in hospital and he was started on metoprolol. He denies any chest pain or palpitation. or sob anxiety1 Pt has chronic a nxiety and depression Pt takes cymbalta and doing ok pt denies any suicidal or homicidal thought Pt denies any crying spells DM Pt has DM Pt wan ts to try free style nando 2 system for glucose monitor. He uses insulin daily. his glucose is around 120s. anxiety1 Pt has chronic a nxiety and depression Pt doing well with cymbalta Pt denies any suicidal or homicidal thought. Pt denies any crying spells DM Pt has DM. Pt ta kes insulin 45 units daily and his glucose is around 200 and his A1c is around 9.6. his A1c was 15. pt denies any hypoglycemia diarrhea1 Pt has been havi ng intermittently nighttime diarrhea Pt denies any blood in stool. Pt denies any nausea, vomiting, abd pain, GERD. Pt has not needed to use reglan and he has been out of protonix for several weeks. he has been having intermittent nonbloody diarrhea at night only. pt denies any appetite loss, nausea, vomiting. GERd, early satiety. Pt denies any weight loss. pt denies any abd pain HTN Pt takes lisinop ril and his bp is stable. Pt denies any cough DKA1 Pt has type II D M without treatment and he started to have nausea, vomiting, mildly sob, stomach pain since 7 days ago. pt did consume large amount of alcohol prior to the acute onset of symptoms he denies any chest pain. He c/o midepigastric pain still with some nausea without vomiting Pt denies any diarrhea. Pt is able to drink fluid down and has normal amount of urine output. His glucose was over 400 and his A1c is over 15. he denies any chest pain or sob. Pt was started on insulin drip in hospital and he gradually felt better along with re-hydration and he was discharged 2 days ago. Pt is on insulin glargine 40 units in am and his glucose is around 160-170 on average. Pt denies any abd pain post food. pt does feel more nauseated with food. anxiety1 Pt has chronic a nxiety and depression Pt takes cymbalta 30 mg daily and he feels improvement of his mood but he thinks that he may benefit from higher dose Pt denies any suicidal or homicidal thought .pt denies any crying spells anxiety1 Pt has persisten t right shoulder pain due to rotator cuff tendinosis. Pt denies any shoulder injury. Pt has not heard from ortho yet. Pt denies any neck pain or any radiculopathy or right arm weakness. Pt denies any shoulder swelling, redness or warmth anxiety1 Pt has chronic a nxiety and depression Pt started cymbalta last month and he notices improvement of his mood with medication. Pt denies any suicidal or homicidal thought Pt denies any crying spells. Pt initially had some jaw spasm with cymbalta which resolved shortly. depression1 Pt has chronic a nxiety and depression Pt used to take SSRI but did not work but he does not remember what he took. He denies any suicidal or homicidal thought. Pt denies any crying spells. Pt feels poorly motivated and loss of interest with generalized depressed mood. shoulder pain1 Pt c/o right esdras ulder pain for many years .Pt denies any injury. Pt denies any shoulder injury. . Pt c/o right shoulder pain whenever he tries to move right shoulder. Pt denies any radiation to right hand or neck pain. Pt denies any weakness. Pt denies any shoulder swelling ,redness or warmth DM Pt was diagnosed with DM several years ago but he has not been checking his glucose or on any medication .Pt denies any polyuria, polydipsia. Pt denies any neuropathy symptoms Pt has not done lab yet physical Pt needs annual physical Pt c/o right shoulder pain for many years .Pt denies any injury. Pt used to play baseball but he was left handed. Pt c/o right shoulder pain whenver he tries to move right shoulder. Pt denies any radiation to right hand or neck pain. Pt denies any weakness. Pt has not done x ray or anything for right shoulder pain. Pt has DM. Pt has not been on any meds for two years. Pt does not remember the name of meds. Pt denies any neuropathy. Pt has intermittent polyuria, polydipsia Pt denies any vision change. pt has not check his glucose for two years. Instructions Date Instruction Additional Infor mation No Information Assessments Type Assessment Date assessment Encounter for eliud l adult medical examination without abnormal findings Mental Status Date Cognitive Assessment Orientation - [place] ed to time, place, person, situation.
--- OUTSIDE RECORDS SUMMARY | 2024-07-15 23:42 | XMS_ITS | Encounter Summary ---
Author Organization [facility] Healthcare Address [address] [place] [address] Care Team Providers Care Knifeman Name Role Phone Naren Ortega MD Primary Care Provider [phone] Reason for Visit * Reason Onset Date Comments Forms/questionnaires 11/25/2023 [employer] Encounter Details Date Type Department Care Team (Late st Contact Info) Description 11/25/2023 [facility]phone [facility] [id number] [address] [place] [address] [facility] [address], [place] [address] Forms/questionnaires ([employer]) Social History Tobacco [...] on file 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 documented in this encounter Plan of Treatment Not on file documented as of this encounter Visit Diagnoses Not on filedocumented in this encounter Care Teams Knifeman Relationship Specialty Start Date End Date Naren Ortega MD [address] [place] [address] PCP - General Family Medicine 01/07/22 documented as of this encounter
--- OUTSIDE RECORDS SUMMARY | 2024-07-15 23:42 | XMS_ITS | Referral Summary ---
Author Organization [facility] Address [address] [place] [address] Care Team Providers Care Branch Associate Teller Name Role Phone Naren Ortega MD Primary Care Provider [phone] Allergies No known active allergies Medications [id number] [...] Adjustment to settings below. And I emailed [employer] about getting his software updated to 780 [...] Pt to send me a message via [employer] in a week, to let me know how he is doing with the new pump settings. Assessment & Plan (12/06/2022 4:46 PM CDT): Chronic problem, not at goal. He was not wearing his pump today as his pump site and CGM ended earlier today. We walked through placing a new pump and started a new CGM. I sent a note to [employer] to follow up with patient, especially concerning [...] advised to send me a message via [employer] every week or every other week so we can look at his freestyle Nando data for more advice The patient also benefit from an insulin pump. 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 ([facility]) EGFR Routine 11/02/2022 12:47 PM CDT Type 2 diabetes mellitus with hyperglycemia, with long-term current use of insulin ([facility]) ([facility]) LIPID PANEL Routine 11/02/2022 12:47 PM CDT Type 2 diabetes mellitus with hyperglycemia, with long-term current use of insulin ([facility]) ([facility]) ALBUMIN CREATININE RATIO, URINE Routine 09/27/2022 [...] [facility] eGFR 106 mL/min/1. 73 m2 [facility] [...] BLOOD ORDERABLES Final Resul t [facility] [id number] [address] [place] [address] * Lipid panel (11/02/2022 12:47 [...] BLOOD ORDERABLES Final Resul t [facility] [id number] [address] [place] [address] * Albumin Creatinine Ratio, Urine [...] to Subscriber:Self Name:Shane Wheeler Payer ID:[id number] (NAIC) Type:[facility] Address: [facility] [id number] [place] [id number] Care Teams Branch Associate Teller Relationship Specialty Start Date End Date Naren Ortega MD [address] [place] [address] PCP - General Family Medicine 01/07/22
--- OUTSIDE RECORDS SUMMARY | 2024-07-15 23:42 | XMS_ITS | Encounter Summary ---
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
--- OUTSIDE RECORDS SUMMARY | 2024-07-15 23:42 | XMS_ITS | Continuity of Care Document ---
Author Organization [facility] Address [address] [place] [address] [place] [address] Phone Care Team Providers Care Slack Line Yarder Name Role Phone Naren Ortega MD Unavailable [...] EST, AGE 18-39 [facility], [address], [place], [address], [place] tel:[phone] [facility] physical (chief complaint) Encounter for general adult medical examination without abnormal findings Sep-3 4 Jordan Sneed. [address], [place], [address]. tel:[phone] OFFICE/OUTPA TIENT VISIT, [facility], [address], [place], [address], [place] tel:[phone] [facility] Medicine toe (chief complaint) anxiety1 (chief complaint) anemia1 (chief complaint) Cellulitis of right toeAnemiaGeneralize d Anxiety Disorder Mar- 3 Jordan Sneed. [address], [place], [address]. [phone] OFFICE/OUTPA TIENT VISIT, [facility], [address], [place], [address], [place] tel:[phone] [facility] anxiety1 (chief complaint) ED (chief complaint) DM (chief complaint) anemia1 (chief complaint) Generalized Anxiety DisorderAnemiaMale erectile dysfunction, unspecifiedType 2 diabetes mellitus without complications Fili- 3 Jordan Sneed. [address], [place], [address]. tel:[phone] PREV VISIT, EST, AGE 18-39 [facility], [address], [place], [address], [place] tel:[phone] [facility] physical (chief complaint) Encounter for general adult medical exam w abnormal findingsType 2 diabetes mellitus without complicationsGenera lized Anxiety DisorderTachycardia Male erectile dysfunction, unspecifiedAnemia Sep- 3 Jordan Sneed. [address], [address], [place], [address]. tel:[phone] OFFICE/OUTPA TIENT VISIT, [facility], [address], [place], [address], [place] tel:[phone] [facility] DKA (chief complaint) tachycardi a1 (chief complaint) anxiety1 (chief complaint) Essential (primary) hypertensionGeneral ized Anxiety DisorderType 2 diabetes mellitus with ketoacidosis without comaTachycardia 3 Ortega Naren. [address], [place], [address]. tel:[phone] [facility], [address], [place], [address], tel:[phone] [facility] No Information 2 Ortega Naren. [address], [address], [place], [address]. tel:[phone] [facility], [address], [place], [address], tel:[phone] [facility] No Information 2 Ortega Naren. [address], [place], [address]. tel:[phone] OFFICE/OUTPA TIENT VISIT, [facility], [address], [place], [address], [place] tel:[phone] [facility] DM (chief complaint) Type 2 diabetes mellitus without complications 2 Ortega Naren. [address], [address], [place], [address]. tel:[phone] OFFICE/OUTPA TIENT VISIT, [facility], [address], [place], [address], [place] tel:[phone] [facility] DM (chief complaint) diarrhea1 (chief complaint) anxiety1 (chief complaint) HTN (chief complaint) Essential (primary) hypertensionGeneral ized Anxiety DisorderType 2 diabetes mellitus without complicationsGastro paresisPain in right shoulder 2 Ortega Naren. [address], [place], [address]. tel:[phone] OFFICE/OUTPA TIENT VISIT, [facility], [address], [place], [address], [place] tel:[phone] [facility] DKA1 (chief complaint) anxiety1 (chief complaint) Type 2 diabetes mellitus with ketoacidosis without comaEssential (primary) hypertensionGastrop aresisGeneralized Anxiety Disorder 2 Jordan Hubbard [address], [address], [place], [address]. tel:[phone] OFFICE/OUTPA TIENT VISIT, [facility], [address], [place], [address], [place] tel:[phone] [facility] anxiety1 (chief complaint) anxiety1 (chief complaint) Generalized Anxiety DisorderPain in right shoulder 2 Jordan Hubbard [address], [address], [place], [address]. tel:[phone] OFFICE/OUTPA TIENT VISIT, [facility], [address], [place], [address], tel:[phone] [facility] depression 1 (chief complaint) shoulder pain1 (chief complaint) DM (chief complaint) Pain in right shoulderGeneralized Anxiety DisorderType 2 diabetes mellitus without complications 2 Jordan Sneed. [address], [place], [address]. tel:[phone] PREV VISIT, NEW, AGE 18-39 [facility], [address], [place], [address], [place] tel:[phone] [facility] physical (chief complaint) Encounter for general adult medical exam w abnormal findingsType 2 diabetes mellitus without complicationsPain in right shoulder 2 Jordan Sneed. [address], [place], [address]. tel:[phone] Family History Family Member Type Diagnosis Age At Onset Father Problem unknown Mother Problem Alive and well Sister Problem Alive and well Payers Payer name Insurance type Covered green party ID Authoriza tion(s) No Information Social [...] Podiatry. Evaluate and treat ordered Referral Ordered: Krystle Caruso -Allopathic & Osteopathic Physicians : Internal Medicine : Endocrinology, Diabetes & Metabolism (related to Type 2 diabetes mellitus without complications) ordered Referral Ordered: Urology (related to Male erectile dysfunction, unspecified) ordered Referral Referred To: Krystle Caruso [id number] [facility]
[address], [place] [id number] Ordered: Referrals: Allopathic & Osteopathic Physicians : Internal Medicine : Endocrinology, Diabetes & Metabolism. Krystle Caruso. Evaluate and treat ordered Referral Ordered: Referrals: Urology. Evaluate and treat ordered Referral Referred To: Clark MORRIS, Lio Tamez S Yanna Syed Dept Of
[address] [place], [place], [phone] Ordered: Referrals: Clark MORRIS, Lio Macias. Evaluate [...] insulin daily. his glucose is around 120s. HTN Pt takes lisinop ril and his bp is stable. Pt denies any cough diarrhea1 Pt has been havi ng intermittently [...] weight loss. pt denies any abd pain DM Pt has DM. Pt ta kes insulin 45 units daily and his glucose is around 200 and his A1c is around 9.6. his A1c was 15. pt denies any hypoglycemia anxiety1 Pt has chronic a nxiety and depression Pt doing well with cymbalta Pt denies any suicidal or homicidal thought. Pt denies any crying spells anxiety Pt has chronic a nxiety and depression Pt takes cymbalta 30 mg daily and he feels improvement of his mood but he thinks that he may benefit from higher dose Pt denies any suicidal or homicidal thought .pt denies any crying spells DKA1 Pt has type II D M [...] more nauseated with food. anxiety1 Pt has persisten t right shoulder [...] Mental Status Date Cognitive Assessment Orientation - [place] ed to time, place, person, situation.
--- OUTSIDE RECORDS SUMMARY | 2024-07-15 23:42 | XMS_ITS | Clinical Summary ---
Author Organization [facility] Address [address] [place] [address] Care Team Providers Care Material Liaison Name Role Phone Naren Ortega MD Primary Care Provider [phone] Allergies No known active allergies Medications SEMGLEE-[id number] [...] Adjustment to settings below. And I emailed [employer] about getting his software updated to 780 [...] Pt to send me a message via [employer] in a week, to let me know how he is doing with the new pump settings. Assessment & Plan (12/06/2022 4:46 PM CDT): Chronic problem, not at goal. He was not wearing his pump today as his pump site and CGM ended earlier today. We walked through placing a new pump and started a new CGM. 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 Gender Identity Not on file Sexual Orientation [...] hyperglycemia, with long-term current use of insulin ([facility]) ([facility]) LIPID PANEL Routine 11/02/2022 12:47 PM CDT Type 2 diabetes mellitus with hyperglycemia, with long-term current use of insulin ([facility]) ([facility]) ALBUMIN CREATININE RATIO, URINE Routine 09/27/2022 1:36 [...] BLOOD ORDERABLES Final Resul t [facility] [address] [address] Department [place] [address] * Lipid panel (11/02/2022 12:47 PM CDT) [...] LAB BLOOD ORDERABLES Final Resul t [facility] [address] [address] Department [place] [address] * Albumin Creatinine Ratio, Urine (09/27/2022 1:36 [...] Maintenance Insurance ANTH ACCESS CHOICE Care Teams Material Liaison Relationship Specialty Start Date End Date Naren Ortega MD [address] [place] [address] PCP - General Family Medicine 01/07/22
--- OUTSIDE RECORDS SUMMARY | 2024-07-15 23:42 | XMS_ITS | Encounter Summary ---
Author Organization [facility] Address [address] [place] [address] Care Team Providers Care Marketing Regional Consultant Name Role Phone Naren Ortega MD Primary Care Provider [phone] Encounter Details Date Type Department Care Team (Late st Contact Info) Description 03/19/2023 10:45 AM CDT Telemedicine [facility] Medical [facility] Virtual Care [address] [place] [address] Cinthia Hope, [address] [place] [address] Cellulitis of toe of right foot (Primary Dx); Type 2 diabetes mellitus with hyperglycemia, with long-term current use of insulin ([facility]) ([facility]) Social History Tobacco Use Types Packs/Day Years [...] on file 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 [facility] Virtual Care Screening Evaluation for toe pain This was a telemedicine visit with Shane Wheeler alone which took place via real-time video connection with [facility]. During the visit, I was located at home and the patient was located at home in the state [facility]. The patient visit started at 1045 [...] hyperglycemia, with long-term current use of insulin ([facility]) ([facility]) Comments: BS ranging 150-200 Pt instructed to [...] (HCC) documented in this encounter Care Teams Marketing Regional Consultant Relationship Specialty Start Date End Date Naren Ortega MD [address] [place] [address] PCP - General Family Medicine 01/07/22 documented as of this encounter
--- OUTSIDE RECORDS SUMMARY | 2024-07-15 23:43 | XMS_ITS | Encounter Summary ---
Author Organization [facility] Address [address] [place] [address] Care Team Providers Care Curing Press Maintainer Name Role Phone Naren Ortega MD Primary Care Provider [phone] Reason for Visit * Reason Onset Date Comments Forms/questionnaires 11/05/2022 [facility]- [facility] Encounter Details Date Type Department Care Team (Late st Contact Info) Description 11/05/2022 Telephone [facility] Specialists [facility] [address] [address] [place] [address] [facility] [address] [place] [address] Forms/questionnaires ([facility] Social History Tobacco Use Types [...] on file 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 * Telephone Encounter - Antonella Alan PA - 11/15/2022 9:02 AM CDT Orders completed, will be on your desk at [facility]. * Telephone Encounter - Yari Jimenez - 11/12/2022 2:52 PM CDT Received minimed 770G systems settings form On your desk * Telephone Encounter - Seda Walter MA - 11/09/2022 3:07 PM CDT [facility] asking to send the form again since is missing the TDD. TDD of 50 added and form faxed at [phone] to Chris Soriano Through [employer]. * Telephone Encounter - Mila Wallace MA - 11/09/2022 1:46 PM CDT Email received from Chris Trujillo requesting the pump supply section on the SMN form be completed and the form be refaxed to [employer] at [phone]. Form updated and faxed through [employer] * Telephone Encounter - Matt Covarrubias MA - 11/09/2022 11:36 AM CDT Signed form and BJORN chart notes faxed to [employer] at [phone] via [employer]. * Telephone Encounter - Matt Covarrubias MA - 11/05/2022 2:57 PM CDT [facility] 11/02/22 FR [facility] CMN received from [facility]. Form completed and placed on 's desk for signature. Please fax to [phone] with [facility] chart notes. documented in this encounter Plan of Treatment Not on file documented as of this encounter Visit Diagnoses Not on filedocumented in this encounter Care Teams Curing Press Maintainer Relationship Specialty Start Date End Date Naren Ortega MD [address] [place] [address] PCP - General Family Medicine 01/07/22 documented as of this encounter
--- OUTSIDE RECORDS SUMMARY | 2024-07-15 23:43 | XMS_ITS | Encounter Summary ---
Author Organization [facility] Address [address] [place] [address] Care Team Providers Care V Belt Inspector Name Role Phone Naren Ortega MD Primary Care Provider [phone] Reason for Visit * Reason Onset Date Comments follow up appointment 12/07/2022 Encounter Details Date Type Department Care Team (Late st Contact Info) Description 12/07/2022 Telephone [facility] Diabetes and Endocrinology [address] [place] [phone] [place] [address] [facility] [address] [place] [address] follow up appointment Social History Tobacco Use [...] on file 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 documented in this encounter Plan of Treatment Not on file documented as of this encounter Visit Diagnoses Not on filedocumented in this encounter Care Teams V Belt Inspector Relationship Specialty Start Date End Date Nraen Ortega MD [address] [place] [address] PCP - General Family Medicine 01/07/22 documented as of this encounter
--- OUTSIDE RECORDS SUMMARY | 2024-07-15 23:43 | XMS_ITS | Encounter Summary ---
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 Gender Identity Not on file Sexual Orientation [...] * Comprehensive metabolic panel (09/28/2022) Blood Result [facility] Historical Provider LAB BLOOD ORDERABLES Carole l Result * (ABNORMAL) Hemoglobin A1c (09/27/2022 1:36 PM CDT) SCRIBED Hemoglobin A1c 8.7 <5.7 - NA % [facility] Blood 09/27/2022 1:36 PM CDT Result [facility] Historical Provider LAB BLOOD ORDERABLES Edit ed Result - Final [facility] * HM ALBUMIN CREATININE RATIO, URINE (09/27/2022 1:36 PM CDT) SCRIBED HM ALBUMIN CREATININE RATIO, URINE 5 <30 - NA [facility] Urine 09/27/2022 1:36 PM CDT Result [facility] Historical Provider HEALTH MAINTENANCE Edited Result - Final [facility] * Albumin Creatinine Ratio, Urine (09/27/2022 1:36 PM CDT) SCRIBED Creatinine, Urine 102 20 - 320 [facility] SCRIBED Microalbumin 0.5 NA - NA [facility] SCRIBED Microalb/Creat Ratio 5 <30 - NA [facility] Urine 09/27/2022 1:36 PM CDT Result [facility] Historical Provider LAB URINE ORDERABLES Edit ed Result - Final [facility] documented in this encounter Visit Diagnoses Not on filedocumented in this encounter Care Teams Principal Cyber Engineer Relationship Specialty Start Date End Date Naren Ortega MD [address] [place] [address] PCP - General Family Medicine 01/07/22 documented as of this encounter
--- OUTSIDE RECORDS SUMMARY | 2024-07-15 23:43 | XMS_ITS | Encounter Summary ---
Author Organization [facility] Address [address] [place] [address] Care Team Providers Care Formation Fracturing Operator Name Role Phone Naren Ortega MD Primary Care Provider [phone] Reason for Visit * Reason Onset Date Comments Medtronic 770G Rx 01/28/2023 Encounter Details Date Type Department Care Team (Late st Contact Info) Description 01/28/2023 Telephone [facility] Specialists [facility] [address] [address] [address] [place] [address] 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 documented in this encounter Plan of Treatment Not on file documented as of this encounter Visit Diagnoses Not on filedocumented in this encounter Care Teams Formation Fracturing Operator Relationship Specialty Start Date End Date Naren Ortega MD [address] [place] [address] PCP - General Family Medicine 01/07/22 documented as of this encounter
--- OUTSIDE RECORDS SUMMARY | 2024-07-15 23:43 | XMS_ITS | Encounter Summary ---
Author Organization [facility] Address [address] [place] [address] Care Team Providers Care Loader Operator Supervisor Name Role Phone Naren Ortega MD Primary Care Provider Encounter Details Date Type Department Care Team (Latest Contact Info) Description 11/02/2022 12:47 PM CDT - 11/02/2022 11:59 PM CDT Hospital Encounter [address] [id number] Type 2 diabetes mellitus with hyperglycemia, with long-term current use of insulin ([facility] (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 ([facility]) GLUTAMIC ACID DECARBOXYLASE Routine 11/02/2022 12:47 PM CDT Type 2 diabetes mellitus with hyperglycemia, with long-term current use of insulin ([facility] ([facility]) C-PEPTIDE Routine 11/02/2022 12:47 PM CDT Type 2 diabetes mellitus with hyperglycemia, with long-term current use of insulin ([facility]) ([facility]) LIPID PANEL Routine 11/02/2022 12:47 PM CDT Type 2 diabetes mellitus with hyperglycemia, with long-term current use of insulin ([facility] ([facility]) COMPREHENSIVE METABOLIC PANEL Routine 11/02/2022 12:47 PM CDT Type 2 diabetes mellitus with hyperglycemia, with long-term current use of insulin ([facility]) ([facility]) documented in this encounter Results * eGFR [...] BLOOD ORDERABLES Final Resul t [facility] [address] [address] Department [place] [address] * (ABNORMAL) Glutamic acid decarboxylase [...] developed and its performance characteristics determined by [facility] in a manner consistent with CLIA requirements. This test has not been cleared or approved by the U.S. Food and Drug Administration. Test Performed by: [address] [address] Mammographer: Giorgio Payne M.D. Ph.D.; CLIA# [id number] Blood 11/02/2022 12:4 7 PM CDT 11/02/2022 6:09 PM CDT us Herman Boone MD LAB BLOOD ORDERABLES Final Resul t Performing Organization Address City/[facility]/ZIP Co de Phone Number [facility] [address] [place] [address] * C-peptide (11/02/2022 12:47 PM CDT) Pathologist [facility] C-peptide 2.23 1.10 - 4.40 ng/mL [facility] Comment:Testing performed by : [facility], [address], [place]., [address] Blood 11/02/2022 12:4 7 PM CDT 11/03/2022 9:51 AM CDT us Herman Boone MD LAB BLOOD ORDERABLES Final Resul t Performing Organization Address City/[facility]/ZIP Co de Phone Number [facility] [address] [address] [place], [place] [id number] * (ABNORMAL) Comprehensive metabolic panel (11/02/2022 12:47 [...] MD LAB BLOOD ORDERABLES Final Resul t [facility] [address] [address] Department [place] [address] * Lipid panel (11/02/2022 12:47 PM CDT) [...] BLOOD ORDERABLES Final Resul t [facility] [address] [address] Department [place] [address] documented in this encounter Visit Diagnoses Diagnosis Type 2 diabetes mellitus with hyperglycemia, with long-term current use of insulin (HCC) documented in this encounter Care Teams Loader Operator Supervisor Relationship Specialty Start Date End Date Naren Ortega MD [address] [place] [address] PCP - General Family Medicine 01/07/22 documented as of this encounter
--- OUTSIDE RECORDS SUMMARY | 2024-07-15 23:43 | XMS_ITS | Encounter Summary ---
Author Organization [facility] Address [address] [place] [address] Care Team Providers Care Survey Superintendent Name Role Phone Naren Ortega MD Primary Care Provider [phone] Reason for Visit * Reason Onset Date Comments Med Refill 03/07/2023 Encounter Details Date Type Department Care Team (Late st Contact Info) Description 03/07/2023 Telephone [facility] [place] [address] [facility] [address] [place] [phone] [place] [address] [facility] [address] [place] [address] Med Refill Social History Tobacco [...] on file 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 * Telephone Encounter - Seda Walter MA - 03/07/2023 3:45 PM CDT Attempt to contact [employer] was made. No success. Waited on line for almost 40 minutes for someoneto answer the phone. Tried to contact Chris at [phone]. No answer. LVM informing him about thecall we received. Asked if they can please fax the Request/Form. * Telephone Encounter - Edwige Allan - 03/07/2023 2:27 PM CDT Refill Request LV: 01/26/23 NV: 05/11/23 The office has received a request for the prescription(s) listed below: Requestor: [employer] [phone] opt 6 Rx(s): 780 G pump patient is requesting to upgrade Out of Rx(s): day: Pharm/Ph#: [employer] [phone] opt 6 documented in this encounter Plan of Treatment Not on file documented as of this encounter Visit Diagnoses Not on filedocumented in this encounter Care Teams Survey Superintendent Relationship Specialty Start Date End Date Naren Ortega MD [address] [place] [address] PCP - General Family Medicine 01/07/22 documented as of this encounter
--- OUTSIDE RECORDS SUMMARY | 2024-07-15 23:43 | XMS_ITS | Encounter Summary ---
Author Organization [facility] Address [address] [facility] [address] [place] [address] Care Team Providers Care Loan Officer Name Role Phone Naren Ortega MD Primary Care Provider [phone] Encounter Details Date Type Department Care Team (Late st Contact Info) Description 01/14/2023 Telephone [facility] [address] [facility] [address] [place] [address] [place] [address] [facility] [address] [place], [place] [phone] Social History Tobacco Use Types Packs/Day Years [...] on file 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 documented in this encounter Plan of Treatment Not on file documented as of this encounter Visit Diagnoses Not on filedocumented in this encounter Care Teams Loan Officer Relationship Specialty Start Date End Date Naren Ortega MD [address] [place] [address] PCP - General Family Medicine 01/07/22 documented as of this encounter
--- OUTSIDE RECORDS SUMMARY | 2024-07-15 23:43 | XMS_ITS | Encounter Summary ---
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
--- OUTSIDE RECORDS SUMMARY | 2024-07-15 23:43 | XMS_ITS | Encounter Summary ---
Author Organization [facility] Address [address] [place] [address] Care Team Providers Care Manager Filter Name Role Phone Naren Ortega MD Primary Care Provider [phone] Reason for Visit * Reason Onset Date Comments Appt/ Schd change 01/21/2023 Encounter Details Date Type Department Care Team (Late st Contact Info) Description 01/21/2023 Telephone [facility] [address] [facility] [address] [address] [place] [address] 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
--- OUTSIDE RECORDS SUMMARY | 2024-07-15 23:43 | XMS_ITS | Encounter Summary ---
Author Organization [facility] Address [address] [facility] [address] [place] [address] Care Team Providers Care Barrel Washer Machine Name Role Phone Naren Ortega MD Primary Care Provider [phone] Reason for Visit * Reason Onset Date Comments Forms/questionnaires 12/07/2022 Medtronic R x Encounter Details Date Type Department Care Team (Late st Contact Info) Description 12/07/2022 Telephone [facility] Diabetes and Endocrinology [address] [place] [phone] [place] [address] [facility] [address] [place] [address] Forms/questionnaires (Medtronic Rx) Social History Tobacco Use [...] on file 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 * Telephone Encounter - Matt Covarrubias MA - 12/07/2022 11:58 AM CDT [facility] 12/06/2022 SW NOV 01/26/2023 SW Rx received from [employer] via fax. Form completed and placed on FREDDY's desk for signature. Fax to [phone]. documented in this encounter Plan of Treatment Not on file documented as of this encounter Visit Diagnoses Not on filedocumented in this encounter Care Teams Barrel Washer Machine Relationship Specialty Start Date End Date Naren Ortega MD [address] [place] [address] PCP - General Family Medicine 01/07/22 documented as of this encounter
--- OUTSIDE RECORDS SUMMARY | 2024-07-15 23:43 | XMS_ITS | Encounter Summary ---
Author Organization [facility] Address [address] [facility] [address] [facility] [address] [place] [address] Care Team Providers Care Career Representative Name Role Phone Naren Ortega MD Primary Care Provider [phone] Reason for Visit * Reason Comments Insulin Pump Follow Up Encounter Details Date Type Department Care Team (Late st Contact Info) Description 12/14/2022 2:30 PM CDT Office Visit [facility] Diabetes and Endocrinology [address] [place] [phone] [place] [address] [facility] [address] [place] [address] Type 2 diabetes mellitus with hyperglycemia, with [...] on file 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 documented in this encounter Miscellaneous Notes * Assessment & Plan Note - Herman Boone MD - 12/14/2022 4:29 PM CDTAssociated Problem(s): Type 2 diabetes mellitus with hyperglycemia, with long-term current use of insulin ([facility]) Hba1c was Lab Results Component Value Date [...] Pt to send me a message via [email or web address] in a week, to let me know how he is doing with the new pump settings. documented in this encounter Plan of Treatment Not on file documented as of this encounter Visit Diagnoses Diagnosis Type 2 diabetes mellitus with hyperglycemia, with long-term current use of insulin (HCC)- Primary documented in this encounter Care Teams Career Representative Relationship Specialty Start Date End Date Naren Ortega MD [address] [place] [address] PCP - General Family Medicine 01/07/22 documented as of this encounter
--- OUTSIDE RECORDS SUMMARY | 2024-07-15 23:43 | XMS_ITS | Encounter Summary ---
Author Organization [facility] Address [address] [facility] [facility] [address] [place] [address] Care Team Providers Care Acute Coordinator Name Role Phone Nraen Ortega MD Primary Care Provider [phone] Reason for Visit * Reason Comments Follow-up DM TYPE II Encounter Details Date Type Department Care Team (Late st Contact Info) Description 01/26/2023 2:30 PM CDT Office Visit [facility] [address] [facility] [address], [place] [address] [place] [address] [facility] [address] [place] [address] Type 2 diabetes mellitus with [...] on file 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 [facility] Diabetes Follow Up Visit Subjective/Objective Patient [...] monitoring results: checks blood sugars 4x/day via MedSWIIM System Guardian CGM. BG Average: 248 mg/dl with: [...] % 9.3 No lab exists for component: [id number] Component Latest Ref Rng 11/02/2022 12/06/2022 Hgb [...] hyperglycemia, with long-term current use of insulin ([facility]) ([facility]) (Primary) Assessment & Plan: Chronic problem, not [...] with long- term current use of insulin ([facility]) Chronic problem, not at goal. Main issue [...] hyperglycemia, with long-term current use of insulin ([facility]) ([facility]) POCT GLUCOSE Routine 01/26/2023 2:40 PM CDT Type 2 diabetes mellitus with hyperglycemia, with long-term current use of insulin ([facility]) ([facility]) documented in this encounter Results * POCT [...] hyperglycemia, with long-term current use of insulin ([facility])- Primary Insulin pump status documented in this [...] 01/03/2023 added in this encounter Care Teams Acute Coordinator Relationship Specialty Start Date End Date Naren Ortega MD [address] [place] [address] PCP - General Family Medicine 01/07/22 documented as of this encounter
--- OUTSIDE RECORDS SUMMARY | 2024-07-15 23:43 | XMS_ITS | Encounter Summary ---
Author Organization [facility] Address [address] [facility] [address] [place] [address] Care Team Providers Care Computer Art Instructor Name Role Phone Naren Ortega MD Primary Care Provider [phone] Reason for Visit * Reason Comments Follow-up TYPE 2 DM Encounter Details Date Type Department Care Team (Late st Contact Info) Description 12/06/2022 3:00 PM CDT Office Visit [facility] [address] [facility] [address], [place] [address] [place] [address] [facility] [address] [place], [place] [phone] Type 2 diabetes mellitus with hyperglycemia, with [...] on file 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 [facility] Diabetes Follow Up Visit Subjective/Objective Patient [...] % 9.4 No lab exists for component: [id number] Component Latest Ref Rng & Units 11/02/2022 [...] hyperglycemia, with long-term current use of insulin ([facility] ([facility]) (Primary) Assessment & Plan: Chronic problem, not at goal. He was not wearing his pump today as his pump site and CGM ended earlier today. We walked through placing a new pump and started a new CGM. I sent a note to [employer] up with patient, especially concerning site changes [...] new CGM. I sent a note to [employer]lillianaow up with patient, especially concerning site changes [...] hyperglycemia, with long-term current use of insulin ([facility] ([facility]) POCT GLUCOSE Routine 12/06/2022 3:07 PM CDT Type 2 diabetes mellitus with hyperglycemia, with long-term current use of insulin ([facility]) ([facility]) documented in this encounter Results * (ABNORMAL) [...] with long-term current use of insulin ([facility])- Primary Insulin pump status documented in this [...] 10/29/2022 added in this encounter Care Teams Computer Art Instructor Relationship Specialty Start Date End Date Naren Ortega MD [address] [place] [address] PCP - General Family Medicine 01/07/22 documented as of this encounter
--- OUTSIDE RECORDS SUMMARY | 2024-07-15 23:43 | XMS_ITS | Encounter Summary ---
Author Organization [facility] Address [address] [place] [address] Care Team Providers Care Family Literacy Coordinator Name Role Phone Naren Ortega MD Primary Care Provider [phone] Encounter Details Date Type Department Care Team (Late st Contact Info) Description 11/15/2022 Telephone [facility] Diabetes and Endocrinology [address] [place] [phone] [place] [address] [facility] [address] [place] [address] Social History Tobacco Use Types Packs/Day Years [...] on file Legal Sex Male 10:25 PM [employer] Gender Identity Not on file Sexual Orientation [...] 11/15/2022 12:57 PM CDT Received order for myseekit system via email Please complete and sign documented in this encounter Plan of Treatment Not on file documented as of this encounter Visit Diagnoses Not on filedocumented in this encounter Care Teams Family Literacy Coordinator Relationship Specialty Start Date End Date Naren Ortega MD [address] [place] [place] [address] PCP - General Family Medicine 01/07/22 documented as of this encounter
--- OUTSIDE RECORDS SUMMARY | 2024-07-15 23:43 | XMS_ITS | Encounter Summary ---
Author Organization [facility] Address [address] [facility] [address] [place] [address] Care Team Providers Care Molding Supervisor Name Role Phone Naren Ortega MD Primary Care Provider [phone] Reason for Visit * Reason Onset Date Comments Appointment 11/29/2022 Encounter Details Date Type Department Care Team (Late st Contact Info) Description 11/29/2022 Telephone [facility] [address] [facility] [address] [address] [place] [address] [facility] [address] [place], [place] [phone] Appointment Social History Tobacco Use Types Packs/Day [...] on file 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 documented in this encounter [...] documented as of this encounter Care Teams Molding Supervisor Relationship Specialty Start Date End Date Naren Ortega MD [address] [place] [address] PCP - General Family Medicine 01/07/22 documented as of this encounter
--- OUTSIDE RECORDS SUMMARY | 2024-07-15 23:43 | XMS_ITS | Encounter Summary ---
Author Organization [facility] Address [address] [facility] [address] [place] [address] Care Team Providers Care Singing Telegram Performer Name Role Phone Naren Ortega MD Primary Care Provider Reason for Visit * Reason Comments Diabetes Type 2 Encounter Details Date Type Department Care Team (Late st Contact Info) Description 11/02/2022 12:00 PM CDT Office Visit [facility] Diabetes and Endocrinology [address] [place] [phone] [place] [address] [facility] [address] [place] [address] Type 2 diabetes mellitus with hyperglycemia, with [...] on file 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 male. Chief Complaint Diabetes Type 2 HPI Consult requested by Dr Ortega for uncontrolled diabetes Mr. Wheeler telling me he was diagnosed with diabetes [...] Physical activity routine : he works at [employer] , doing a lot of walking, stacking [...] hyperglycemia, with long-term current use of insulin ([facility]) (HCC) (E11.65, Z79.4) (Primary) Assessment & [...] advised to send me a message via [employer] every week or every other week so [...] hyperglycemia, with long-term current use of insulin ([facility]) Hba1c was Lab Results Component Value [...] advised to send me a message via [employer] every week or every other week so [...] hyperglycemia, with long-term current use of insulin ([facility]) ([facility]) POCT GLUCOSE Routine 11/02/2022 12:09 PM CDT Type 2 diabetes mellitus with hyperglycemia, with long-term current use of insulin ([facility]) ([facility]) documented in this encounter Results * Lipid [...] B[place] [address] [address] [place] [address] * (ABNORMAL) Comprehensive metabolic panel (11/02/2022 12:47 [...] CH AST 25 10 - 50 Units/L [facility] Blood 11/02/2022 12:4 7 PM CDT 11/02/2022 6:09 PM CDT Herman Boone MD LAB BLOOD ORDERABLES Final Resul t Performing Organization Address City/[facility] Co de Phone Number [facility] [address] [address] [facility] [place] [address] * C-peptide (11/02/2022 12:47 PM CDT) C-peptide 2.23 1.10 - 4.40 ng/mL [facility] Comment:Testing performed by : [facility], [address] [facility], [place]., [address] Blood 11/02/2022 12:4 7 PM CDT 11/03/2022 9:51 AM CDT Herman Boone MD LAB BLOOD ORDERABLES Final Resul t Performing Organization Address [facility] de Phone Number [facility] [address] [address] [place] [address] * (ABNORMAL) Glutamic acid decarboxylase (11/02/2022 12:47 PM CDT) GAD65 ab ser 0.24(H) <=0.02 nmol/L [facility] Comment: The following antibody was identified: Glutamic [...] its performance characteristics determined by [facility] in a manner consistent with CLIA requirements. This test has not been cleared or approved by the U.S. Food and Drug Administration. Test Performed by: [facility] [place] [address] Video Effects Editor: Giorgio Payne M.D. Ph.D.; CLIA# [id number] Blood 11/02/2022 12:4 7 PM CDT 11/02/2022 6:09 PM CDT us Herman Boone MD LAB BLOOD ORDERABLES Final Resul t [facility] [address] [address] [place] [address] * (ABNORMAL) POCT glucose (11/02/2022 12:09 PM CDT) Glucose Blood, POC 252 mg/dL Blood 11/02/2022 12:0 9 PM CDT Result [facility] us Herman Boone MD POINT OF CARE TEST ORDERABLES Fi nal Result * (ABNORMAL) POCT hemoglobin A1c (11/02/2022 12:09 PM CDT) Hemoglobin A1C, POC 9.1 % Blood 11/02/2022 12:0 9 PM CDT Result [facility] us Herman Boone MD POINT OF CARE [...] 01/25/2023 added in this encounter Care Teams Singing Telegram Performer Relationship Specialty Start Date End Date Naren Ortega MD [address] [place] [address] PCP - General Family Medicine 01/07/22 documented as of this encounter
== END 2024-07-11 14:56 | disposition home or self-care (01) | DRG 638 ==
LOC: ANHED 15:15 → ANHICU 18:44 → ANH3MEDSUR 07-09 17:39
PROVIDERS: Internal Medicine; Nurse Practitioner Family; Admitting Provider General Practice; Emergency Provider Physician Assistant; PCP Emergency Medicine; Visit Provider Nurse Practitioner Adult Health
DX: E11.10 Type 2 diabetes mellitus with ketoacidosis without coma (principal); N17.9 Acute kidney failure, unspecified; E87.6 Hypokalemia; K20.90 Esophagitis, unspecified without bleeding; Z96.41 Presence of insulin pump (external) (internal); F32.A Depression, unspecified; Z79.4 Long term (current) use of insulin
CPT/HCPCS: 36415; 36600; 71045; 74177; 80048; 80053; 81001; 82010; 82375; 82805; 82948; 83036; 83050; 83735; 84100; 85018; 85025; 87641; 93005; 96374; 99285; A9270; J1650; J1815; J2060; J2405; J2470; J2765; J3480; J7030; P9045; Q9967

== ENCOUNTER 2024-12-14 08:08 | Observation (INO) | payer BC, SELFPAY ==
[2024-12-14] VITALS (13 sets, daily range): BP systolic 111–139; BP diastolic 52–93; PULSE 107–129; RESP 11–28; TEMP 36.4–37; O2SAT 98–100; BMI 27.6
--- OUTSIDE RECORDS SUMMARY | 2024-12-14 08:16 | XMS_ITS | Continuity of Care Document ---
Author Organization [facility] Address [address] [place] [address] [place] [address] Phone Care Team Providers Care Hot Mill Worker Name Role Phone Naren Ortega MD Unavailable Unavailable Allergies, Adverse Reactions, Alerts Substance Reaction Status Criticality No Known Allergies Active No Inform ation Medications Medication Instructions Dosage Effective Dates (start - stop) Status Comments Humalog U-100 Insulin 100 unit/mL subcutaneous solution use with insulin pump. Insulin dosing requires individualization. - Active max 100 units per day Cymbalta 60 mg capsule,delayed release take 1 capsule by oral route every day 60 MG - Active Adderall 20 mg tablet take 1 tablet by oral route every day before breakfast 20 MG - Active buspirone 10 mg tablet take 1 tablet by oral route 3 times every day 10 MG - Active Humalog KwikPen (U-100) Insulin 100 unit/mL subcutaneous inject by subcutaneous route per prescriber's instructions. Insulin dosing requires individualization. 0.00 - Active 10 units befo re meal Pen Needle 32 gauge x 5/32 use with daily insulin pen - Active pen needle, diabetic 31 gauge x 1/4 use once daily with insulin glargine - Active FreeStyle Nando 2 Sensor kit change sensor every two weeks. - Active E11.9 Procedures Procedure Date OFFICE/OUTPATIENT VISIT, EST PREV VISIT, EST, AGE [...] Diagnoses Date Provider Providers Copied on Encounter [facility], [address], [place], [place], [id number], [place] tel:[phone] [facility] No Information 5 Jordan Hubbard [address], [place], [place], [address] , [place]. [phone] OFFICE/OUTPA TIENT VISIT, [facility], [place], [address], [place], [place], [address], [place] tel:[phone] [facility] DKA (chief complaint) anxiety1 (chief complaint) esophagiti s1 (chief complaint) anemia1 (chief complaint) AnemiaHypokalemiaEs ophagitisType 1 diabetes mellitus with ketoacidosis without comaGeneralized Anxiety Disorder 4 Jordan Hubbard [address], [place], [place], [address] , [place]. tel:[phone] PREV VISIT, EST, AGE 18-39 [facility], [address], [place], [place], [address], [place] tel:[phone] [facility] physical (chief complaint) Encounter for general adult medical examination without abnormal findings 4 Jordan Sneed. [address], [place], [place], [address] , [place]. [phone] OFFICE/OUTPA TIENT VISIT, [facility], [place], [address], [place], [place], [address], [place] tel:[phone] [facility] Medicine toe (chief complaint) anxiety1 (chief complaint) anemia1 (chief complaint) Cellulitis of right toeAnemiaGeneralize d Anxiety Disorder 3 Jordan Sneed. [address], [place], [place], [address] , [place]. tel:[phone] OFFICE/OUTPA TIENT VISIT, [facility], [place], [address], [place], [place], [address], [place] tel:[phone] [facility] anxiety1 (chief complaint) ED (chief complaint) DM (chief complaint) anemia1 (chief complaint) Generalized Anxiety DisorderAnemiaMale erectile dysfunction, unspecifiedType 2 diabetes mellitus without complications 3 Jordan Sneed. [address], [place], [place], [address] , [place]. tel:[phone] PREV VISIT, EST, AGE 18-39 [facility], [address], [place], [place], [address], [place] tel:[phone] [facility] physical (chief complaint) Encounter for general adult medical exam w abnormal findingsType 2 diabetes mellitus without complicationsGenera lized Anxiety DisorderTachycardia Male erectile dysfunction, unspecifiedAnemia 3 Jordan Sneed. [address], [place], [place], [address] , [place]. tel:[phone] OFFICE/OUTPA TIENT VISIT, EST [facility], [address], [place], [place], [address], [place] tel:[phone] [facility] DKA (chief complaint) tachycardi a1 (chief complaint) anxiety1 (chief complaint) Essential (primary) hypertensionGeneral ized Anxiety DisorderType 2 diabetes mellitus with ketoacidosis without comaTachycardia 3 Jordan Sneed. [address], [place], [place], [address] , [place]. tel:[phone] [facility], [address], [place], [place], [address], [place] tel:[phone] [facility] No Information 2 Jordan Sneed. [address], [place], [place], [address] , . [phone] [facility], [address], [place], [place], [address], [place] tel:[phone] [facility] No Information 2 Jordan Sneed. [address], [place], [place], [address] , [place]. [phone] OFFICE/OUTPA TIENT VISIT, [facility], [place], [address] [place], [address], tel:[phone] [facility] DM (chief complaint) Type 2 diabetes mellitus without complications 2 Jordan Sneed. [address], [place], [place], [address] , [place]. [phone] OFFICE/OUTPA TIENT VISIT, [facility], [place], [address], [place], [place], [address], [place] tel:[phone] [facility] DM (chief complaint) diarrhea1 (chief complaint) anxiety1 (chief complaint) HTN (chief complaint) Essential (primary) hypertensionGeneral ized Anxiety DisorderType 2 diabetes mellitus without complicationsGastro paresisPain in right shoulder 2 Jordan Sneed. [address], [place], [place], [address] , [place]. tel:[phone] OFFICE/OUTPA TIENT VISIT, [facility], [place], [address], [place], [place], [address], [place] tel:[phone] [facility] DKA1 (chief complaint) anxiety1 (chief complaint) Type 2 diabetes mellitus with ketoacidosis without comaEssential (primary) hypertensionGastrop aresisGeneralized Anxiety Disorder 2 Jordan Sneed. [address], [place], [place], [address] , [place]. tel:[phone] OFFICE/OUTPA TIENT VISIT, EST [facility], [address], [place], [place], [address], [place] tel:[phone] [facility] anxiety1 (chief complaint) anxiety1 (chief complaint) Generalized Anxiety DisorderPain in right shoulder 2 Jordan Sneed. [address], [place], [place], [address] , [place]. tel:[phone] OFFICE/OUTPA TIENT VISIT, [facility], [place], [address], [place], [place], [address], [place] tel:[phone] [facility] depression 1 (chief complaint) shoulder pain1 (chief complaint) DM (chief complaint) Pain in right shoulderGeneralized Anxiety DisorderType 2 diabetes mellitus without complications 2 Jordan Sneed. [address], [place], [place], [address] , [place]. [phone] PREV VISIT, NEW, AGE 18-39 [facility], [address], [place], [place], [address], [place] tel:[phone] [facility] physical (chief complaint) Encounter for general adult medical exam w abnormal findingsType 2 diabetes mellitus without complicationsPain in right shoulder 2 Jordan Sneed. [address], [place], [place], [address] , [place]. [phone] Family History Family Member Type Diagnosis Age At Onset Father Problem unknown Mother Problem Alive and well Sister Problem Alive and well Payers Payer name Insurance type Covered alliance party ID Authoriza tion(s) No Information Social History Type Description Quantity Date Captured Comments Alcohol Use Details Unknown Caffeine Use Details Unknown Tobacco Use Status No Information Smoking Status No Information Sex Male Chief Complaint And Reason For Visit No Information Plan Of Treatment Date Type Action Status [...] complications) ordered Referral Referred To: Krystle Caruso [id number] [place], [place] [id number] Ordered: Referrals: Allopathic & Osteopathic Physicians : Internal Medicine : Endocrinology, Diabetes & Metabolism. Krystle Caruso. Evaluate and treat ordered Referral Ordered: Referrals: Urology. Evaluate and treat ordered Referral Referred To: Clark MORRIS, Lio Tamez S Yanna Syed [facility]
[place] [address] [place], [place], [id number] Ordered: Referrals: Clark MORRIS, Lio Macias. Evaluate and treat ordered Referral Ordered: Physical Therapy (related to Pain in right shoulder) ordered Referral Ordered: US EXAM, EXTREMITY ordered Referral Referred To: Physical Therapy Ordered: Referrals: Physical Therapy. Evaluate and treat ordered Appointment Shane Wheeler BOOKED History Of Present Illness Encounter Date Complaint History Of Prese nt Illness esophagitis1 Pt has Ct eviden ce of HH and esophagitis Pt denies any GERD Pt did have nausea, vomiting due to DKA which resolved now anemia1 Pt has mild anem ia on lab from hospital anxiety1 Pt has chronic a nxiety and depression Pt takes cymbalta and buspar and doing ok Pt denies any suicidal or homicidal thought Pt denies any crying spells. Pt also has ADD pt is on adderall now Pt sees psychiatrist. DKA Pt recently run out of insulin and he was admitted for DKA. Pt had persistent nausea ,vomiting and he was treated with insulin and sent home. Pt has not made isis with endo yet Pt also has anemia low kcl as well. his renal function is back to normal upon discharge. physical Pt needs annual physical. pt sees [...] homicidal thought. Pt denies any crying spells anxiety1 Pt has chronic a nxiety and [...] denies any shoulder swelling, redness or warmth anxiety Pt has chronic a nxiety and [...] two years. Instructions Date Instruction Additional Infor mitch No Information Assessments Type Assessment Date No Information
--- OUTSIDE RECORDS SUMMARY | 2024-12-14 08:16 | XMS_ITS | Referral Summary ---
Author Organization [facility] Address [address] [place] [address] Care Team Providers Care Natural Fabricator Name Role Phone Naren Ortega MD Primary Care Provider [phone] Allergies No known active allergies Medications SEMGLEE-[id number] [...] Adjustment to settings below. And I emailed [employer] about getting his software updated to 780 [...] Pt to send me a message via SpinGo in a week, to let me know how he is doing with the new pump settings. Assessment & Plan (12/06/2022 4:46 PM CDT): Chronic problem, not at goal. He was not wearing his pump today as his pump site and CGM ended earlier today. We walked through placing a new pump and started a new CGM. I sent a note to [employer] to follow up with patient, especially concerning [...] advised to send me a message via SpinGo every week or every other week so we can look at his freestyle Nando data for more advice The patient also benefit from an insulin pump. 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 Gender Identity Not on file Sexual Orientation Not on file Last Filed Vital Signs Vital Sign Reading Time Taken Comments Blood Pressure 111/72 01/26/2023 2:36 PM CDT Pulse 108 01/26/2023 2:36 PM CDT Temperature 36.9 C (98.4 F) 01/26/2023 2:36 PM CDT Respiratory Rate 16 01/26/2023 2:36 PM CDT Oxygen Saturation - - Inhaled Oxygen Concentration - - Weight 104.3 kg (230 lb) 01/26/2023 2:36 PM CDT Height 175.3 cm (5' 9) 01/26/2023 2:36 PM CDT Body Mass Index 33.97 01/26/2023 2:36 PM CDT Plan of Treatment Not on file Procedures Procedure Name Priority Date/Time Associated Diagnosis Comments POCT HEMOGLOBIN A1C Routine 01/26/2023 2 :40 PM CDT Type 2 diabetes mellitus with hyperglycemia, with long-term current use of insulin (HCC) EGFR Routine 11/02/2022 12:47 PM CDT Type 2 diabetes mellitus with hyperglycemia, with long-term current use of insulin (HCC) LIPID PANEL Routine 11/02/2022 12:47 PM CDT Type 2 diabetes mellitus with hyperglycemia, with long-term current use of insulin ([facility]) ALBUMIN CREATININE RATIO, URINE Routine 09/27/2022 1:36 PM CDT from Last 3 Months or Most Recently Relevant to Health Maintenance Results * POCT hemoglobin A1c (01/26/2023 2:40 PM CDT) Pathologist [facility] Hemoglobin A1C, POC 9.3 % Blood 01/26/2023 2:40 PM CDT Antonella CANDELARIO POINT OF CARE TEST DIPAK BELL Final Result * eGFR (11/02/2022 12:47 PM CDT) Pathologist [facility] eGFR 106 mL/min/1. 73 m2 [facility] Comment: Interpretive Data Reference Interval Normal >/= 90 mL/min/1.73m2 Mildly decreased* 60 - 89 mL/min/1.73m2 Mildly to moderately decreased 45 - 59 mL/min/1.73m2 Moderately to severely decreased 30 - 44 mL/min/1.73m2 Severely decreased 15 - 29 mL/min/1.73m2 Kidney Failure < 15 mL/min/1.73m2 *Relative to young adult level Estimated glomerular [...] BLOOD ORDERABLES Final Resul t [facility] [id number] Department [place] [address] * Lipid panel (11/02/2022 12:47 PM CDT) Cholesterol 150 30 - 199 mg/dL [facility] Comment: Interpretive Data Ages < or = 19 years Acceptable: <170 mg/dL Borderline high: 170-199 mg/dL High: >or= 200 mg/dL Ages > or = 20 years Desirable: <200 mg/dL Borderline high: 200-239 mg/dL High: >or= 240 mg/dL Literature References: 1. Expert Panel on Integrated Guidelines for Cardiovascular Health and Risk Reduction in Children and Adolescents. Pediatrics 2011;128:S213 2. NCEP Expert Panel. Circulation 2004;110:227 Current Interpretive Data was last revised on 2018. Triglycerides 113 <=149 mg/dL [facility] Comment: Interpretive Data Ages < or = 9 years Acceptable: <75 mg/dL Borderline high: 75-99 mg/dL High: >or= 100 mg/dL Ages 10 to 20 years Acceptable: <90 mg/dL Borderline high: 90-129 mg/dL High: >or= 130 mg/dL Ages > or = 20 years Desirable: <150 mg/dL Borderline high: 150-199 mg/dL High: 200-499 mg/dL Very high: >or= 499 mg/dL Literature References: 1. Expert Panel on Integrated Guidelines for Cardiovascular Health and Risk Reduction in Children and Adolescents. Pediatrics 2011;128:S213 2. NCEP Expert Panel. Circulation 2004;110:227 Current Interpretive Data was last revised on 2018. HDL 48 >=40 mg/dL [facility] Comment: Interpretive Data Ages < or = 19 years Acceptable: >45 mg/dL Borderline low: 40-45 mg/dL Low: <40 mg/dL Ages > or = 20 years Desirable: >or= 60 mg/dL Low: <40 mg/dL Literature References: 1. Expert Panel on Integrated Guidelines for Cardiovascular Health and Risk Reduction in Children and Adolescents. Pediatrics 2011;128:S213 2. NCEP Expert Panel. Circulation 2004;110:227 Current Interpretive Data was last revised on 2018. LDL, calculated 79 <=129 mg/dL [facility] Comment: Interpretive Data Ages < or = 19 years Acceptable: <110 mg/dL Borderline high: 110-129 mg/dL High: >or= 130 mg/dL Ages > or = 20 years Optimal: <100 mg/dL Near optimal: 100-129 mg/dL Borderline high: 130-159 mg/dL High: >160 mg/dL Literature References: 1. Expert Panel on Integrated Guidelines for Cardiovascular Health and Risk Reduction in Children and Adolescents. Pediatrics 2011;128:S213 2. NCEP Expert Panel. Circulation 2004;110:227 Current Interpretive Data was last revised on 2018. Non-HDL Cholesterol 102 mg/dL [facility] Comment: Interpretive Data Ages < or = 19 years Acceptable: <120 mg/dL Borderline high: 120-144 mg/dL High: >145 mg/dL Ages > or = 20 years When triglycerides are >200 mg/dL, Non-HDL cholesterol is a secondary target of therapy with treatment goals that are 30 mg/dL greater than the LDL cholesterol target. Literature References: 1. Expert Panel on Integrated Guidelines for Cardiovascular Health and Risk Reduction in Children and Adolescents. Pediatrics 2011;128:S213 2. NCEP Expert Panel. Circulation 2003;110:227 Current Interpretive Data was last revised on 2018. Chol/HDL ratio 3 [facility] Blood 11/02/2022 12:4 7 PM CDT 11/02/2022 6:09 PM CDT us Herman Boone MD LAB BLOOD ORDERABLES Final Resul t [facility] [address] Department [place] [address] * Albumin Creatinine Ratio, Urine (09/27/2022 1:36 PM CDT) SCRIBED Creatinine, Urine 102 20 - 320 [facility] SCRIBED Microalbumin 0.5 NA - NA [facility] SCRIBED Microalb/Creat Ratio 5 <30 - NA [facility] Urine 09/27/2022 1:36 PM CDT Historical Provider LAB URINE ORDERABLES Edit ed Result - Final [facility] from Last 3 Months or Most Recently Relevant to Health Maintenance Insurance [employer]THEM ACCESS CHOICE Care Teams Natural Fabricator Relationship Specialty Start Date End Date Naren Ortega MD [facility] [address] [place] [address] PCP - General Family Medicine 01/07/22
--- OUTSIDE RECORDS SUMMARY | 2024-12-14 08:16 | XMS_ITS | Clinical Summary ---
Author Organization [facility] Address [address] [place] [address] Care Team Providers Care Commercial Designer Name Role Phone Naren Ortega MD Primary Care Provider + [phone] Allergies No known active allergies Medications SEMGLEE-yfgn [...] Adjustment to settings below. And I emailed [employer] about getting his software updated to 780 [...] Pt to send me a message via TrabajoPanel in a week, to let me know how he is doing with the new pump settings. Assessment & Plan (12/06/2022 4:46 PM CDT): Chronic problem, not at goal. He was not wearing his pump today as his pump site and CGM ended earlier today. We walked through placing a new pump and started a new CGM. 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 Gender Identity Not on file Sexual Orientation [...] C Screening 1986 Dilated Eye Exam 1986 DTaP/Tdap/Td Vaccine (1 - Tdap) 1997 Varicella Vaccines (1 of 2 - 13+ 2-dose series) 1999 Hepatitis B Screening 2004 Regular Well Visit/Exam 18-64 2004 Pneumococcal vaccine <65 (1 of 2 - PCV) 2005 Hemoglobin A1C 07/29/2023 01/26/2023, 11/16, 11/02/2022, Additional history exists Albumin Creatinine Ratio, Urine 09/28/2023 09/27/2022, 09/27/2022 Foot Exam 11/03/2023 11/02/2022 Lipid Panel 11/03/2023 11/02/2022 eGFR 11/03/2023 11/02/2022 Depression Screening 12/15/2023 12/14/2022 Covid-19 Vaccine ( season) 2024 05/15/2021, 09/28/2020, 08/30/2020 Influenza Vaccine (Season Ended) 2025 05/12/2021, 04/03/2020 HPV Vaccines Aged Out No longer eligi [...] with long-term current use of insulin (HCC) ALBUMIN CREATININE RATIO, URINE Routine 09/27/2022 1:36 PM CDT from Last 3 Months or Most Recently Relevant to Health Maintenance Results * POCT hemoglobin A1c (01/26/2023 2:40 PM CDT) Hemoglobin A1C, POC 9.3 % Blood 01/26/2023 2:40 PM CDT us Antonella CANDELARIO POINT OF CARE TEST ORDE RAY Final Result * eGFR (11/02/2022 12:47 PM [...] BLOOD ORDERABLES Final Resul t [facility] [address] [place] [address] * Lipid panel (11/02/2022 12:47 PM CDT) [...] LAB BLOOD ORDERABLES Final Resul t [facility] [address] [place] [address] * Albumin Creatinine Ratio, Urine (09/27/2022 1:36 PM CDT) SCRIBED Creatinine, Urine 102 20 - 320 [facility] SCRIBED Microalbumin 0.5 NA - NA [facility] SCRIBED Microalb/Creat Ratio 5 <30 - NA [facility] Urine 09/27/2022 1:36 PM CDT Samy Provider LAB URINE ORDERABLES Edit ed Result - Final [facility] from Last 3 Months or Most Recently Relevant to Health Maintenance Insurance [employer]M ACCESS CHOICE Care Teams Commercial Designer Relationship Specialty Start Date End Date Naren Ortega MD [address] [place] [address] PCP - General Family Medicine 01/07/22
[2024-12-14 08:18] LABS: Glucose Point of Care 226 mg/dl (65-105)
[2024-12-14 08:33] LABS: Basophils Percent Auto 0.2 % (0.2-1.2); Hematocrit 39.1 % (42.0-52.0); Hemoglobin 13.1 g/dL (14.0-18.0); Immature Granulocyte Absolute 0.03 K/mm3 (0.00-0.031); Immature Granulocyte Percent A 0.4 % (0-0.5); Lymphocytes Absolute Auto 2.62 K/mm3 (0.9-3.2); Lymphocytes Percent Auto 32.2 % (18.3-44.2); Mean Corpuscular HGB Conc 33.5 g/dl (32-36); Mean Corpuscular Hemoglobin 30.6 pg (26-34); Mean Corpuscular Volume 91.4 fl (80-100); Mean Platelet Volume 9.5 fl (7.4-10.4); Monocytes Absolute Auto 0.6 K/mm3 (0.1-0.6); Monocytes Percent Auto 7.7 % (2.6-8.5); Neutrophils Absolute Auto 4.8 K/mm3 (1.3-6.7); Neutrophils Percent Auto 59.5 % (45.5-73.1); Platelet Count Result 227 k/mm3 (150-375); Red Blood Count 4.28 M/mm3 (4.6-6.20); Red Cell Distribution Width 13.7 % (11.5-14.5); White Blood Count 8.1 K/mm3 (4.5-10.0)
[2024-12-14 08:40] LABS: Add Urine Microscopic? YES; Appearance Urine Clear (Clear); Bacteria Urine None Seen /hpf; Bilirubin Urine Negative (Negative); Blood Urine Negative (Negative); Color Urine Yellow (Yellow); Glucose Urine UA 3+ mg/dL (Negative); Ketones Urine 4+ mg/dL (Negative); Leukocyte Esterase Ur Negative LEU/UL (Negative); Nitrate Urine Negative (Negative); Protein Urine 1+ mg/dL (Negative); RBC Urine 0-2 /hpf (0-2); Specific Grav Ur 1.028 (1.001-1.035); Squamous Epithelial Cell Urine None Seen /hpf (Few); WBC Urine 0-5 /hpf (0-3)
[2024-12-14 08:42] LABS: Alanine Aminotransferase 16 U/L (6-50); Albumin Level 4.4 g/dL (3.5-5.1); Alkaline Phosphatase 102 U/L (38-126); Anion Gap 23 mmol/L (4-12); Aspartate Amino Transferase 20 U/L (17-59); Bilirubin,Total 1.1 mg/dL (0.2-1.3); Blood Urea Nitrogen 14 mg/dL (9-20); Calcium 9.7 mg/dL (8.4-10.2); Carbon Dioxide 13 mmol/L (22-30); Chloride 105 mmol/L (98-107); Estimated CRCL calculation 93 ml/min; Estimated Glomerular Filt Rate > 60; Glucose 247 mg/dL (65-110); Lipase 137 U/L (23-300); Potassium 3.6 mmol/L (3.4-5.0); Sodium 141 mmol/L (137-145)
--- OUTSIDE RECORDS SUMMARY | 2024-12-14 08:49 | XMS_ITS | Continuity of Care Document ---
Author Organization [facility] Address [address] [place] [address] Phone Care Team Providers Care Regulatory Consultant Name Role Phone Naren Ortega MD Unavailable [...] Diagnoses Date Provider Providers Copied on Encounter [facility], [address], [place], [place], [address], [place] tel:[phone] [facility] No Information 5 Jordan Hubbard [address], [place], [place], [address] , [place]. [phone] OFFICE/OUTPA TIENT VISIT, [facility], [address], [place], [place], [address], [place] tel:[phone] [facility] DKA (chief complaint) anxiety1 (chief complaint) esophagiti s1 (chief complaint) anemia1 (chief complaint) AnemiaHypokalemiaEs ophagitisType 1 diabetes mellitus with ketoacidosis without comaGeneralized Anxiety Disorder 4 Jordan Hubbard [address], [place], [place], [address] , [place]. tel:[phone] PREV VISIT, EST, AGE 18-39 [facility], [address], [place], [place], [address], [place] tel:[phone] [facility] physical (chief complaint) Encounter for general adult medical examination without abnormal findings 4 Jordan Sneed. [address], [place], [place], [address] , [place]. [phone] OFFICE/OUTPA TIENT VISIT, [facility], [address], [place], [place], [address], [place] tel:[phone] [facility] Medicine toe (chief complaint) anxiety1 (chief complaint) anemia1 (chief complaint) Cellulitis of right toeAnemiaGeneralize d Anxiety Disorder 3 Jordan Sneed. [address], [place], [place], [address] , [place]. tel:[phone] OFFICE/OUTPA TIENT VISIT, [facility], [address], [place], [place], [address], [place] tel:[phone] [facility] anxiety1 (chief complaint) ED (chief complaint) DM (chief complaint) anemia1 (chief complaint) Generalized Anxiety DisorderAnemiaMale erectile dysfunction, unspecifiedType 2 diabetes mellitus without complications 3 Jordan Snede. [address], [place], [place], [address] , [place]. tel:[phone] PREV VISIT, EST, AGE 18-39 [facility], [address], [place], [place], [address], [place] tel:[phone] [facility] physical (chief complaint) Encounter for general adult medical exam w abnormal findingsType 2 diabetes mellitus without complicationsGenera lized Anxiety DisorderTachycardia Male erectile dysfunction, unspecifiedAnemia 3 Jordan Sneed. [address], [place], [place], [address] , [place]. tel:[phone] OFFICE/OUTPA TIENT VISIT, EST [facility], [address], [place], [place], [address], [place] tel:[phone] [facility] DKA (chief complaint) tachycardi a1 (chief complaint) anxiety1 (chief complaint) Essential (primary) hypertensionGeneral ized Anxiety DisorderType 2 diabetes mellitus with ketoacidosis without comaTachycardia 3 Jordan Sneed. [address], [place], [place], [address] , [place]. tel:[phone] [facility], [address], [place], [place], [address], [place] tel:[phone] [facility] No Information 2 Jordan Sneed. [address], [place], [place], [address] , . [phone] [facility], [address], [place], [address], [place] tel:[phone] [facility] No Information 2 Jordan Sneed. [address], [place], [place], [address] , [place]. [phone] OFFICE/OUTPA TIENT VISIT, [facility], [address] [place], [address], tel:[phone] [facility] DM (chief complaint) Type 2 diabetes mellitus without complications 2 Jordan Sneed. [address], [place], [place], [address] , [place]. [phone] OFFICE/OUTPA TIENT VISIT, [facility], [address], [place], [place], [address], [place] tel:[phone] [facility] DM (chief complaint) diarrhea1 (chief complaint) anxiety1 (chief complaint) HTN (chief complaint) Essential (primary) hypertensionGeneral ized Anxiety DisorderType 2 diabetes mellitus without complicationsGastro paresisPain in right shoulder 2 Jordan Sneed. [address], [place], [place], [address] , [place]. [phone] OFFICE/OUTPA TIENT VISIT, [facility], [address], [place], [place], [address], [place] tel:[phone] [facility] DKA1 (chief complaint) anxiety1 (chief complaint) Type 2 diabetes mellitus with ketoacidosis without comaEssential (primary) hypertensionGastrop aresisGeneralized Anxiety Disorder 2 Jordan Sneed. [address], [place], [place], [address] , [place]. tel:[phone] OFFICE/OUTPA TIENT VISIT, EST [facility], [address], [place], [place], [address], [place] tel:[phone] [facility] anxiety1 (chief complaint) anxiety1 (chief complaint) Generalized Anxiety DisorderPain in right shoulder 2 Jordan Sneed. [address], [place], [place], [address] , [place]. tel:[phone] OFFICE/OUTPA TIENT VISIT, [facility], [address], [place], [place], [address], [place] tel:[phone] [facility] depression 1 (chief complaint) shoulder pain1 (chief complaint) DM (chief complaint) Pain in right shoulderGeneralized Anxiety DisorderType 2 diabetes mellitus without complications 2 Jordan Sneed. [address], [place], [place], [address] , [place]. [phone] PREV VISIT, NEW, AGE 18-39 [facility], [address], [place], [place], [address], [place] tel:[phone] [facility] physical (chief complaint) Encounter for general adult medical exam w abnormal findingsType 2 diabetes mellitus without complicationsPain in right shoulder 2 Jordan Sneed. [address], [place], [place], [address] , [place]. [phone] Family History Family Member Type Diagnosis Age [...] Podiatry. Evaluate and treat ordered Referral Ordered: Aldana Aldana, Supraja -[facility]opathic [facility]opathic Physicians : Internal Medicine : Endocrinology, Diabetes & Metabolism (related to Type 2 diabetes mellitus without complications) ordered Referral Ordered: Urology (related to Male erectile dysfunction, unspecified) ordered Referral Referred To: Krystle Caruso [id number] [place], [place] [id number] Ordered: Referrals: Allopathic & Osteopathic Physicians : Internal Medicine : Endocrinology, Diabetes & Metabolism. Krystle Caruso. Evaluate and treat ordered Referral Ordered: Referrals: Urology. Evaluate and treat ordered Referral Referred To: Clark MORRIS, Lio Macias [address] [place], [place], [id number] Ordered: Referrals: Clark MORRIS, Lio Macias. Evaluate [...] pt does feel more nauseated with food. anxiety Pt has persisten t right shoulder pain [...]
--- NOTE | 2024-12-14 08:52 | ED.NAVMDI ---
HPI - Nausea/Vomiting/Diarrhea General Chief complaint: Nausea/Vomiting/Diarrhea Stated complaint: vomiting for three days diabetic Time Seen by Provider: 12/14/24 08:20 History of Present Illness HPI Narrative: Patient is a 31-year-old male who presents ER with nausea vomiting. Ongoing over last 3 days. His blood sugars been running high. No fevers or chills. He is post be on insulin pump but when they tried to refill the medication is no longer covered on so he has not been able to give himself medication properly. No urinary symptoms. No chest pain. No productive cough. Sent here by his PCP. Related Data Home Medications ?Medication ?Instructions ?Recorded ?Confirmed ?Last Taken ?Type buspirone 10 mg tablet 15 mg PO TID 07/08/24 12/14/24 12/13/24 History dextroamphetamine-amphetamine 10 20 mg PO DAILY 07/08/24 12/14/24 12/13/24 History mg tablet fexofenadine 180 mg tablet 180 mg PO DAILY PRN seasonal 07/08/24 12/14/24 Unknown History (Aller-Fex) allergies Allergies Allergy/AdvReac Type Severity Reaction Status Date / Time No Known Allergies Allergy Verified 12/14/24 08:25 Review of Systems Review of Systems: All systems reviewed & are unremarkable except as noted in HPI and below Constitutional: Constitutional: Reports no additional constitutional complaints ENT: Reports system reviewed and no additional complaints, except as documented Cardiovascular: Cardiovascular: Reports no additional cardiovascular complaints Respiratory: Respiratory: Reports no additional respiratory complaints Gastrointestinal: Gastrointestinal: Reports no additional gastrointestinal complaints [facility] Past Medical History Medical History Depression Eczema Erectile dysfunction Type 2 diabetes mellitus Surgical History Surgical History History of strabismus surgery In childhood Family History Family History (Updated 07/08/24 @ 21:56 by Anita Curry RN) Grandparent Skin cancer Breast cancer Peripheral vascular disease Lung cancer Mother Unknown family medical history Estranged from the patient Substance abuse Father Unknown family medical history Estranged from the patient Social History Social History Social History: The patient lives with his . They have been since 2021. They do not have any children. He is a lifelong nonsmoker. He drinks alcohol approximately once a month in in moderation. He works for a local [employer] He denies illicit substance use. Code status: Full code Surrogate decision maker: Smoking status: Never smoker Second hand tobacco smoke exposure: No Alcohol intake: unknown Drinks per week: 5 Substance use: unknown Substance use type: marijuana Do You Feel Safe in your Home?: Yes Lack of Transportation: No Lack of Food: Never True Current Housing: I Have Housing Concerned About Future Housing: No Difficulty Paying Gas/Electric Bills: No Difficulty Paying for Meds: No Currently Unemployed: No Education: Bachelor's Degree Difficulty w/ Childcare or Family Care: No Spiritual care concerns: No Exam Narrative: GENERAL: Well-appearing, well-nourished, and in no acute distress. HEAD: Normocephalic, atraumatic. ENT: Mucous membranes moist. CHEST: Clear to auscultation. No respiratory distress. HEART: Tachycardic and regular. Normal peripheral pulses. ABDOMEN: Soft, nontender, nondistended. EXTREMITIES: Normal range of motion. No edema. SKIN: Warm, dry, no rash. NEURO: Alert and oriented x3. PSYCH: Normal mood and affect. Course Course Emergency Course: Patient hydrated. Discussed with ICU, admit on insulin drip. Patient accepted by hospitalist. Vital Signs Vital signs: Vital Signs Temperature 97.6 F 12/14/24 08:28 Pulse Rate 124 H 12/14/24 08:28 Respiratory Rate 16 12/14/24 08:28 Blood Pressure 118/85 12/14/24 08:28 Pulse Oximetry 100 12/14/24 08:28 Temperature 98.3 F 12/14/24 16:00 Pulse Rate 109 H 12/14/24 18:00 Respiratory Rate 12 12/14/24 18:00 Blood Pressure 132/88 12/14/24 18:00 Pulse Oximetry 99 12/14/24 18:00 Oxygen Delivery Room Air 12/14/24 16:00 MDM - Nausea/Vomiting/Diarrhea Lab Data 12/14/24 08:27 12/14/24 16:52 Labs: Lab Results 12/14/24 12/14/24 12/14/24 Range/Units 08:16 08:27 09:10 WBC 8.1 (4.5-10.0) K/mm3 RBC 4.28 L (4.6-6.20) M/mm3 Hgb 13.1 L (14.0-18.0) g/dL Hct 39.1 L (42.0-52.0) % MCV 91.4 (80-100) fl MCH 30.6 (26-34) pg MCHC 33.5 (32-36) g/dl RDW 13.7 (11.5-14.5) % Plt Count 227 (150-375) k/mm3 MPV 9.5 (7.4-10.4) fl Immature Gran % (Auto) 0.4 (0-0.5) % Neut % (Auto) 59.5 (45.5-73.1) % Lymph % (Auto) 32.2 (18.3-44.2) % [place] % (Auto) 7.7 (2.6-8.5) % Eos % (Auto) 0.0 (0-4.4) % Baso % (Auto) 0.2 (0.2-1.2) % Lymph # (Auto) 2.62 (0.9-3.2) K/mm3 [place] # (Auto) 0.6 (0.1-0.6) K/mm3 Eos # (Auto) 0.0 (0-0.3) K/mm3 Baso # (Auto) 0.0 (0.0-0.1) K/mm3 Abs Immat Gran (auto) 0.03 (0.00-0.031) K/mm3 Absolute Neuts (auto) 4.8 (1.3-6.7) K/mm3 Absolute Nucleated RBC 0.000 (0.0-0.012) K/mm3 Nucleated RBC % 0.0 (0.0-0.2) % Methemoglobin 0.1 (0-1.5) %THb Sodium 141 (137-145) mmol/L Potassium 3.6 (3.4-5.0) mmol/L Chloride 105 (98-107) mmol/L Carbon Dioxide 13 L (22-30) mmol/L Anion Gap 23 H (4-12) mmol/L BUN 14 (9-20) mg/dL Creatinine 0.92 (0.7-1.3) mg/dL Estim Creat Clear Calc 93 ml/min Estimated GFR > 60 (59 - ) Glucose 247 H (65-110) mg/dL POC Capillary Glucose 226 H (65-105) mg/dl Calcium 9.7 (8.4-10.2) mg/dL Total Bilirubin 1.1 (0.2-1.3) mg/dL AST 20 (17-59) U/L ALT 16 (6-50) U/L Alkaline Phosphatase 102 (38-126) U/L Total Protein 7.0 (6.3-8.2) g/dL Albumin 4.4 (3.5-5.1) g/dL Lipase 137 (23-300) U/L Urine Color Yellow (Yellow) Urine Appearance Clear (Clear) Urine pH 6.0 (5.0-9.0) Ur Specific [place] 1.028 (1.001-1.035) Urine Protein 1+ H (Negative) mg/dL Urine Glucose (UA) 3+ H (Negative) mg/dL Urine Ketones 4+ H (Negative) mg/dL Ur Blood (Man) Negative (Negative) Urine Nitrate Negative (Negative) Urine Bilirubin Negative (Negative) Urine Urobilinogen 1.0 (<2.0) mg/dL Leukocyte Esterase Rfl Negative (Negative) JENNIFER/UL Urine RBC 0-2 (0-2) /hpf Urine WBC 0-5 (0-3) /hpf Ur Squamous Epith Cells None seen (Few) /hpf Urine Bacteria None seen /hpf Urine Casts 3-5 05/30/25 Range/Units 10:21 WBC (4.5-10.0) K/mm3 RBC (4.6-6.20) M/mm3 Hgb (14.0-18.0) g/dL Hct (42.0-52.0) % MCV (80-100) fl MCH (26-34) pg MCHC (32-36) g/dl RDW (11.5-14.5) % Plt Count (150-375) k/mm3 MPV (7.4-10.4) fl Immature Gran % (Auto) (0-0.5) % Neut % (Auto) (45.5-73.1) % Lymph % (Auto) (18.3-44.2) % [place] % (Auto) (2.6-8.5) % Eos % (Auto) (0-4.4) % Baso % (Auto) (0.2-1.2) % Lymph # (Auto) (0.9-3.2) K/mm3 [place] # (Auto) (0.1-0.6) K/mm3 Eos # (Auto) (0-0.3) K/mm3 Baso # (Auto) (0.0-0.1) K/mm3 Abs Immat Gran (auto) (0.00-0.031) K/mm3 Absolute Neuts (auto) (1.3-6.7) K/mm3 Absolute Nucleated RBC (0.0-0.012) K/mm3 Nucleated RBC % (0.0-0.2) % Methemoglobin (0-1.5) %THb Sodium (137-145) mmol/L Potassium (3.4-5.0) mmol/L Chloride (98-107) mmol/L Carbon Dioxide (22-30) mmol/L Anion Gap (4-12) mmol/L BUN (9-20) mg/dL Creatinine (0.7-1.3) mg/dL Estim Creat Clear Calc ml/min Estimated GFR (59 - ) Glucose (65-110) mg/dL POC Capillary Glucose 243 H (65-105) mg/dl Calcium (8.4-10.2) mg/dL Total Bilirubin (0.2-1.3) mg/dL AST (17-59) U/L ALT (6-50) U/L Alkaline Phosphatase (38-126) U/L Total Protein (6.3-8.2) g/dL Albumin (3.5-5.1) g/dL Lipase (23-300) U/L Urine Color (Yellow) Urine Appearance (Clear) Urine pH (5.0-9.0) Ur Specific [place] (1.001-1.035) Urine Protein (Negative) mg/dL Urine Glucose (UA) (Negative) mg/dL Urine Ketones (Negative) mg/dL Ur Blood (Man) (Negative) Urine Nitrate (Negative) Urine Bilirubin (Negative) Urine Urobilinogen (<2.0) mg/dL Leukocyte Esterase Rfl (Negative) JENNIFER/UL Urine RBC (0-2) /hpf Urine WBC (0-3) /hpf Ur Squamous Epith Cells (Few) /hpf Urine Bacteria /hpf Urine Casts ABG Data ABG results: 12/14/24 09:10 Puncture Site Left radial ABG pH 7.299 L ABG pCO2 22.8 L* ABG pO2 88.8 ABG PO2/FiO2 Ratio 4.23 ABG HCO3 10.9 L ABG O2 Saturation 96.2 ABG O2 Content 17.4 ABG Base Excess -13.5 A-a Gradient 33.6 Oxyhemoglobin 95.3 Carboxyhemoglobin 0.9 Reduced Hemoglobin 3.7 Total Hemoglobin 12.9 O2 Delivery Device Room air O2 Liters/Min Not Reportable FiO2 21 Critical Care Time Critical Care Time Critical Care Time: Yes Total Critical Care Time: 35 Discharge Plan Discharge Clinical Impression: DKA (diabetic ketoacidosis) Qualifiers: Diabetes mellitus type: type 2 Diabetes mellitus complication detail: without coma Qualified Code(s): E11.10 - Type 2 diabetes mellitus with ketoacidosis without coma Patient Disposition: Still a Patient Condition: Stable
[2024-12-14] MEDS: SODIUM CHLORIDE 0.9% IV 1,000 ML 999 ML IV CONT ×3 (09:05→10:30)
[2024-12-14] MEDS: ONDANSETRON INJ 4 MG/2 ML VIAL IV PUSH ×2 (09:05→10:54)
[2024-12-14 09:12] LABS: Alveolar/Arterial O2 Gradient 33.6 mmHg; Base Excess ABG -13.5 mEq/l (+/-2.0); Carboxyhemoglobin 0.9 % THb (0-2.0); Fractional Inspired Oxygen 21 %; HCO3 ABG 10.9 mEq/l (22.0-26.0); Methemoglobin ABG 0.1 %THb (0-1.5); Oxygen Content ABG 17.4 %vol (16.0-22.0); Oxygen Saturation ABG 96.2 % (95.0-100.0); Oxyhemoglobin 95.3 % THb (90.0-100.0); PO2 ABG 88.8 mmHg (80.0-100.0); PO2 FiO2 Ratio Arterial Blood 4.23 %; Reduced Hemoglobin 3.7 %THb (0-5.0); Total Hemoglobin 12.9 g/dL (12.0-18.0); pH ABG 7.299 (7.350-7.450)
[2024-12-14 09:14] LABS: PCO2 ABG 22.8 mmHg (35.0-45.0)
[2024-12-14 09:15] LABS: Device ROOM AIR; Modified Allen's Test Pass; Site Drawn LEFT RADIAL
[2024-12-14 10:23] LABS: Glucose Point of Care 243 mg/dl (65-105)
--- NOTE | 2024-12-14 11:10 | ADMGEN ---
This patient, Shane Wheeler, was admitted to Intensive Care Unit-2. Patient/family oriented to hospital policies and general routines including ID bracelet, bed and alarms, visiting hours, pain management, procedures, bathroom and other care routines, personal items, smoking policy, room service/diet, and visiting hours. Information on how to activate the Rapid Response Team has been discussed. Patient/Family are encouraged to report perceived risks to care and to ask questions if they do not understand what they are told or what they should do.
--- NOTE | 2024-12-14 11:19 | WPDCNINT ---
Assessment and Plan Assessment and plan (1) DKA (diabetic ketoacidosis): Qualifiers: Diabetes mellitus complication detail: without coma Diabetes mellitus type: type 2 Qualified Code(s): E11.10 - Type 2 diabetes mellitus with ketoacidosis without coma Code(s): E11.10 - Type 2 diabetes mellitus with ketoacidosis without coma Status: Acute Assessment and Plan: 12/14: Patient presented to the ER with complains of nausea, vomiting, abdominal pain. Was found to have elevated blood sugars, elevated anion gap, urine analysis showed increased urine proteins, ketones and glucose. 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 (3) Nausea & vomiting: Code(s): R11.2 - Nausea with vomiting, unspecified Status: Acute Assessment and Plan: Likely related to diabetic ketoacidosis -patient also has a history of esophagitis -patient takes Reglan at home, will continue but will switch to IV Reglan -continue Zofran p.r.n. (4) Depression: Code(s): F32.9 - Major depressive disorder, single episode, unspecified Status: Acute Assessment and Plan: Patient on buspirone, duloxetine at home -will resume once patient starts taking p.o. Plan DVT prophylaxis: Lovenox Stress ulcer prophylaxis: Protonix Nutrition: NPO for now Code Status: Full code Critical Care Time Spent: 47 minutes Due to a high probability of clinically significant, life threatening deterioration, the patient required my highest level of preparedness to intervene emergently and I personally spent this critical care time directly and personally managing the patient. This critical care time included obtaining a history; examining the patient; pulse oximetry; ordering and review of studies; arranging urgent treatment with development of a management plan; evaluation of patient's response to treatment; frequent reassessment; and discussions with other providers. It was exclusive of separately billable procedures and treating other patients and teaching time. Please see Assessment and Plan section and the rest of the note for further information on patient assessment and treatment This dictation may have been done utilizing a voice recognition system. Attempts have been made to correct errors. However, there may be uncorrected grammatical, spelling, and recognitions errors present. User Interface Designer Consult Note Consult date: 12/14/24 HPI: Shane Wheeler is a 39 year old male with past medical history of depression, eczema, erectile dysfunction, insulin-dependent type 2 diabetes presented the ER on 12/14/2024 with complains of nausea, vomiting, diarrhea, abdominal pain elevated blood sugars. Patient denies any fevers or chills. He has an insulin pump but could not refill the medication and he is no longer covered by his insurance so he was not able to take his insulin correctly for the last 2-3 days. Patient started to have the symptoms and presented and was sent to the ED by his primary care doctor for further workup. In the ER patient found to be tachycardic with heart rates in the 120s to 130s. WBC count of 8.1, hemoglobin 13.1, platelets 227. Blood sugar of 247, anion gap metabolic acidosis with an anion gap of 23 and CO2 of 13. LFTs are within normal limits. UA was positive for 3+ glucose and 4+ ketones In the ER his blood sugars were found to be 439, anion gap of 31, elevated beta hydroxybutyrate, urine was positive for proteins, ketones and glucose. Patient was given 3 L IV fluid bolus, started on insulin infusion per DKA protocol and transferred to the ICU for further management Patient seen and examined in the ICU, present on in, having some nausea/vomiting.. Tachycardic, hemodynamically stable, adequate O2 sats on room air. Has received 3 L IV fluid bolus in the ER, on insulin infusion. Complains of some abdominal pain, no diarrhea at this time. Denies any chest pain, shortness of breath, fevers or chills. Patient denies any tobacco use, alcohol use or illicit drug use. He works at [employer] Review of Systems Review of Systems: All systems reviewed & are unremarkable except as noted in HPI and below PMFSH Past Medical History Medical History Depression Eczema Erectile dysfunction Type 2 diabetes mellitus Surgical History Surgical History History of strabismus surgery In childhood Family History Family History (Updated 07/08/24 @ 21:56 by Anita Curry RN) Grandparent Skin cancer Breast cancer Peripheral vascular disease Lung cancer Mother Unknown family medical history Estranged from the patient Substance abuse Father Unknown family medical history Estranged from the patient Social History Social History Social History: The patient lives with his . They have been since 2021. They do not have any children. He is a lifelong nonsmoker. He drinks alcohol approximately once a month in in moderation. He works for a [employer]. He denies illicit substance use. Code status: Full code Surrogate decision maker: Smoking status: Never smoker Second hand tobacco smoke exposure: No Alcohol intake: former Drinks per week: 5 Substance use: current Substance use type: marijuana Do You Feel Safe in your Home?: Yes Lack of Transportation: No Lack of Food: Never True Current Housing: I Have Housing Concerned About Future Housing: No Difficulty Paying Gas/Electric Bills: No Difficulty Paying for Meds: No Currently Unemployed: No Education: Bachelor's Degree Difficulty w/ Childcare or Family Care: No Spiritual care concerns: Yes Meds Home Medications and Allergies Home Medications ?Medication ?Instructions ?Recorded ?Confirmed ?Type duloxetine 60 mg capsule,delayed 60 mg PO DAILY #30 caps 08/09/22 07/08/24 Rx release insulin lispro 200 unit/mL (3 mL) 5 unit (0.025 mL) subcut TID #6 mL 08/09/22 07/08/24 Rx subcutaneous pen (Humalog KwikPen U-200 Insulin) metoclopramide HCl 10 mg tablet 10 mg PO BID PRN Nausea #30 tabs 08/09/22 07/08/24 Rx buspirone 10 mg tablet 10 mg PO TID 07/08/24 07/08/24 History dextroamphetamine-amphetamine 10 20 mg PO DAILY 07/08/24 07/08/24 History mg tablet fexofenadine 180 mg tablet 180 mg PO DAILY PRN seasonal 07/08/24 07/08/24 History (Aller-Fex) allergies insulin glargine-yfgn 100 unit/mL 50 unit (0.5 mL) subcut DAILY #1 07/11/24 07/08/24 Rx (3 mL) subcutaneous pen (Semglee pen (insulin glargine-yfgn) Pen) insulin lispro 100 unit/mL See Rx Instructions continuous 07/11/24 07/08/24 Rx subcutaneous solution (Humalog subcutaneous infusion .COMPLEX DM1 U-100 Insulin) #10 mL Allergies Allergy/AdvReac Type Severity Reaction Status Date / Time No Known Allergies Allergy Verified 12/14/24 08:25 Vital Signs Vital Signs - 24 hr 12/14/24 08:28 12/14/24 08:46 12/14/24 09:01 Temperature 97.6 F Pulse Rate 124 H 123 H 120 H Respiratory Rate 16 14 14 Blood Pressure 118/85 114/75 114/73 Pulse Oximetry 100 100 100 12/14/24 09:31 12/14/24 10:01 12/14/24 11:10 Temperature 98.6 F Pulse Rate 119 H 119 H 129 H Respiratory Rate 14 16 18 Blood Pressure 117/70 119/78 133/93 H Pulse Oximetry 100 100 100 Exam Narrative: General: Pleasant gentleman, currently of insulin nausea/vomiting HEENT:? Pupils equal and reactive, sclera is clear, Neck:? Supple Respiratory:? Clear to auscultation bilaterally, no wheezing, adequate air entry Cardiac:? S1-S2 edema, tachycardic Abdomen:? Soft, nontender, nondistended, normoactive bowel sounds Extremities:? No edema, palpable pedal pulses Neuro:? Patient is awake, alert, oriented, nonfocal, answers to questions appropriately and follows simple commands in all extremities Skin:? No skin lesions noted Psych:? Normal mentation and affect Results Labs 12/14/24 08:27 12/14/24 08:27 Labs: Short CBC 12/14/24 Range/Units 08:27 WBC 8.1 (4.5-10.0) K/mm3 Hgb 13.1 L (14.0-18.0) g/dL Hct 39.1 L (42.0-52.0) % Plt Count 227 (150-375) k/mm3 BMP 12/14/24 08:27 Sodium 141 Potassium 3.6 Chloride 105 Carbon Dioxide 13 L BUN 14 Creatinine 0.92 Glucose 247 H Calcium 9.7 Liver Function 12/14/24 Range/Units 08:27 Total Bilirubin 1.1 (0.2-1.3) mg/dL AST 20 (17-59) U/L ALT 16 (6-50) U/L Alkaline Phosphatase 102 (38-126) U/L Albumin 4.4 (3.5-5.1) g/dL Urine 12/14/24 Range/Units 08:27 Urine Color Yellow (Yellow) Urine Appearance Clear (Clear) Urine pH 6.0 (5.0-9.0) Ur Specific [place] 1.028 (1.001-1.035) Urine Protein 1+ H (Negative) mg/dL Urine Glucose (UA) 3+ H (Negative) mg/dL Quality VTE Prophylaxis VTE prophylaxis: pharmacologic ordered Hospitalist MIPS Advance Care Plan I have confirmed that the patient's Advanced Care Plan is present, code status is documented, or surrogate decision maker is listed in patient medical record.: Yes Medication Reconciliation I have utilized all available resources to obtain, update and review the patients current medications (includes all prescriptions, OTC, herbals, cannabis, and nutritional supplements).: Yes
[2024-12-14 11:25] LABS: Glucose Point of Care 241 mg/dl (65-105)
[2024-12-14] MEDS: METOCLOPRAMIDE HCL INJ 10 MG/2 ML VIAL IV PUSH ×2 (11:34→18:17)
[2024-12-14] MEDS: LACTATED RINGERS 1,000 ML 999 ML IV CONT ×2 (11:35→13:37)
[2024-12-14] MEDS: INSULIN HUMAN REGULAR (*BKC) 100 UNITS in SODIUM CHLORIDE 0.9% IV 99 ML 8 UNITS IV CONT (11:35)
[2024-12-14] MEDS: KCL 20 MEQ/D5/0.45% SOD CHL 1,000 ML 150 ML IV CONT ×2 (11:35→18:17)
[2024-12-14 12:00] LABS: MRSA (PCR) NOT DETECTED (NOT DETECTE)
--- NOTE | 2024-12-14 12:19 | PCDIET ---
DKA consult. Patient current NPO on insulin drip. States PCP is Dr. Ortega. Patient had no diet questions or concerns for me at this time. He was last educated in Jun 2024 by dietitian. Nursing reporting no Insurance coverage and has not been taking insulin for the past couple of days. [facility] has been consulted as well. Thank you for the consult.
[2024-12-14 12:28] LABS: Glucose Point of Care 281 mg/dl (65-105)
[2024-12-14] MEDS: PANTOPRAZOLE SODIUM IV 40 MG VIAL IV PUSH (12:39)
[2024-12-14 12:41] LABS: Anion Gap 24 mmol/L (4-12); Blood Urea Nitrogen 12 mg/dL (9-20); Calcium 8.4 mg/dL (8.4-10.2); Carbon Dioxide 7 mmol/L (22-30); Chloride 112 mmol/L (98-107); Estimated CRCL calculation 105 ml/min; Estimated Glomerular Filt Rate > 60; Glucose 263 mg/dL (65-110); Potassium 4.2 mmol/L (3.4-5.0); Sodium 143 mmol/L (137-145)
[2024-12-14 13:07] LABS: Hemoglobin A1C 13.6 % (<5.7)
[2024-12-14 13:25] LABS: Glucose Point of Care 265 mg/dl (65-105)
--- NOTE | 2024-12-14 13:36 | PM.IMHP ---
H&P: HPI History of Present Illness Date/Time: 12/14/24 13:36 Chief Complaint: Nausea vomiting and generalized weakness. Narrative: 39-year-old male with history of type 1 diabetes, depression/anxiety ADHD, who presented to the ER on account o fgeneral weakness and vomiting. Noted that he ran of insulin in his insulin pump a few weeks ago adn was switcched to injections int he mantime while waiting for pump supplies. His suspects he was not taking his insulin injections approperiately and the last 3 days he started having the above symptoms. Denies any chest pain, diarrhea, lightheadedness, dysuria and focla weakness. Noted he had abd soreness from the vomiting with no real pain. ER eval notable for HR 124, labs abg 7.299/22.8/88.8/10.9. BG 241, anion gap 23 and CO2 13 he was started on insulin and IVF fluid and admitted to the ICU. Review of Systems Review of Systems: All other systems reviewed and negative except noted in history above. [facility] [place] Past Medical History Medical History Depression Eczema Erectile dysfunction Type 2 diabetes mellitus Surgical History Surgical History History of strabismus surgery In childhood Family History Family History (Updated 07/08/24 @ 21:56 by Anita Curry RN) Grandparent Skin cancer Breast cancer Peripheral vascular disease Lung cancer Mother Unknown family medical history Estranged from the patient Substance abuse Father Unknown family medical history Estranged from the patient Social History Social History Social History: The patient lives with his . They have been since 2021. They do not have any children. He is a lifelong nonsmoker. He drinks alcohol approximately once a month in in moderation. He works for a local [employer]. He denies illicit substance use. Code status: Full code Surrogate decision maker: Smoking status: Never smoker Second hand tobacco smoke exposure: No Alcohol intake: unknown Drinks per week: 5 Substance use: unknown Substance use type: marijuana Do You Feel Safe in your Home?: Yes Lack of Transportation: No Lack of Food: Never True Current Housing: I Have Housing Concerned About Future Housing: No Difficulty Paying Gas/Electric Bills: No Difficulty Paying for Meds: No Currently Unemployed: No Education: Bachelor's Degree Difficulty w/ Childcare or Family Care: No Spiritual care concerns: No Meds Home Medications and Allergies Home Medications ?Medication ?Instructions ?Recorded ?Confirmed ?Type duloxetine 60 mg capsule,delayed 60 mg PO DAILY #30 caps 08/09/22 12/14/24 Rx release insulin lispro 200 unit/mL (3 mL) 5 unit (0.025 mL) subcut TID #6 mL 08/09/22 12/14/24 Rx subcutaneous pen (Humalog KwikPen U-200 Insulin) metoclopramide HCl 10 mg tablet 10 mg PO BID PRN Nausea #30 tabs 08/09/22 12/14/24 Rx buspirone 10 mg tablet 15 mg PO TID 07/08/24 12/14/24 History dextroamphetamine-amphetamine 10 20 mg PO DAILY 07/08/24 12/14/24 History mg tablet fexofenadine 180 mg tablet 180 mg PO DAILY PRN seasonal 07/08/24 12/14/24 History (Aller-Fex) allergies insulin glargine-yfgn 100 unit/mL 50 unit (0.5 mL) subcut DAILY #1 07/11/24 12/14/24 Rx (3 mL) subcutaneous pen (Semglee pen (insulin glargine-yfgn) Pen) insulin lispro 100 unit/mL See Rx Instructions continuous 07/11/24 12/14/24 Rx subcutaneous solution (Humalog subcutaneous infusion .COMPLEX DM1 U-100 Insulin) #10 mL Allergies Allergy/AdvReac Type Severity Reaction Status Date / Time No Known Allergies Allergy Verified 12/14/24 08:25 Vital Signs Vital Signs - 24 hr 12/14/24 08:28 12/14/24 08:46 12/14/24 09:01 Temperature 97.6 F Pulse Rate 124 H 123 H 120 H Respiratory Rate 16 14 14 Blood Pressure 118/85 114/75 114/73 Pulse Oximetry 100 100 100 Oxygen Delivery 12/14/24 09:31 12/14/24 10:01 12/14/24 11:10 Temperature 98.6 F Pulse Rate 119 H 119 H 129 H Respiratory Rate 14 16 18 Blood Pressure 117/70 119/78 133/93 H Pulse Oximetry 100 100 100 Oxygen Delivery 12/14/24 12:00 12/14/24 12:00 12/14/24 12:00 Temperature Pulse Rate 126 H 127 H 126 H Respiratory Rate 17 16 Blood Pressure Pulse Oximetry 100 100 Oxygen Delivery Room Air 12/14/24 12:04 Temperature Pulse Rate Respiratory Rate Blood Pressure 111/52 L Pulse Oximetry Oxygen Delivery Exam Narrative: General: alert and comfortable Eyes: EOMI, PERRLA ENNT External ears normal, Neck is supple, no masses, Respiratory systems: Clear to auscultation Cardiovascular S1, S2, normal rhythm, no murmur, rub, or gallop; no thrill or palpable murmurs on palpation. Gastrointestinal: soft, non-tender, and non-distended abdomen with no masses; BS present Skin: no rash, lesions, ulcerations, subcutaneous nodules or induration Musculoskeletal: no abnormality and no tenderness, normal ROM Neurologic: Alert and oriented x3, non focal Mental Status Exam: normal affect H&P: Results Labs Labs: Short CBC 12/14/24 Range/Units 08:27 WBC 8.1 (4.5-10.0) K/mm3 Hgb 13.1 L (14.0-18.0) g/dL Hct 39.1 L (42.0-52.0) % Plt Count 227 (150-375) k/mm3 [facility] 12/14/24 12/14/24 08:27 12:21 Sodium 141 143 Potassium 3.6 4.2 Chloride 105 112 H Carbon Dioxide 13 L 7 L BUN 14 12 Creatinine 0.92 0.80 Glucose 247 H 263 H Calcium 9.7 8.4 Liver Function 12/14/24 Range/Units 08:27 Total Bilirubin 1.1 (0.2-1.3) mg/dL AST 20 (17-59) U/L ALT 16 (6-50) U/L Alkaline Phosphatase 102 (38-126) U/L Albumin 4.4 (3.5-5.1) g/dL Urine 12/14/24 Range/Units 08:27 Urine Color Yellow (Yellow) Urine Appearance Clear (Clear) Urine pH 6.0 (5.0-9.0) Ur Specific [place] 1.028 (1.001-1.035) Urine Protein 1+ H (Negative) mg/dL Urine Glucose (UA) 3+ H (Negative) mg/dL Assessment and Plan Assessment and plan (1) DKA, type 1: Code(s): E10.10 - Type 1 diabetes mellitus with ketoacidosis without coma Status: Acute Plan DKA suspects patient was likely underdosing his injectable insulin Ran out insulin supplies for his insulin pump and was switch temporarily to Insulin pen, while awaiting supplies Eval notable for Elevated anion gap, metabolic acidosis and hyperglycemia Continue insulin infusion and IVF, NPO until DKA resolved Monitor in the ICU DM1 continue above care Depression and Anxiety continue home meds once DKA resolved DVT prophylaxis on Sq Lovenox Full code SDM: Nessa Vaz
[2024-12-14 14:25] LABS: Glucose Point of Care 203 mg/dl (65-105)
[2024-12-14 15:26] LABS: Glucose Point of Care 176 mg/dl (65-105)
[2024-12-14 16:24] LABS: Glucose Point of Care 183 mg/dl (65-105)
[2024-12-14 17:07] LABS: Anion Gap 14 mmol/L (4-12); Blood Urea Nitrogen 11 mg/dL (9-20); Calcium 8.5 mg/dL (8.4-10.2); Carbon Dioxide 15 mmol/L (22-30); Chloride 113 mmol/L (98-107); Estimated CRCL calculation 113 ml/min; Estimated Glomerular Filt Rate > 60; Glucose 174 mg/dL (65-110); Potassium 3.5 mmol/L (3.4-5.0); Sodium 142 mmol/L (137-145)
[2024-12-14 17:24] LABS: Glucose Point of Care 199 mg/dl (65-105)
[2024-12-14 18:28] LABS: Glucose Point of Care 193 mg/dl (65-105)
[2024-12-14 19:30] LABS: Glucose Point of Care 234 mg/dl (65-105)
[2024-12-14 20:22] LABS: Glucose Point of Care 239 mg/dl (65-105)
[2024-12-14 20:38] LABS: Anion Gap 15 mmol/L (4-12); Blood Urea Nitrogen 10 mg/dL (9-20); Calcium 8.6 mg/dL (8.4-10.2); Carbon Dioxide 13 mmol/L (22-30); Chloride 112 mmol/L (98-107); Estimated CRCL calculation 116 ml/min; Estimated Glomerular Filt Rate > 60; Glucose 231 mg/dL (65-110); Potassium 3.4 mmol/L (3.4-5.0); Sodium 140 mmol/L (137-145)
[2024-12-14 21:23] LABS: Glucose Point of Care 240 mg/dl (65-105)
[2024-12-14] MEDS: SODIUM CHLORIDE 0.9% IV 1,000 ML 150 ML IV CONT (22:30)
[2024-12-14 22:34] LABS: Glucose Point of Care 260 mg/dl (65-105)
[2024-12-14 23:25] LABS: Glucose Point of Care 257 mg/dl (65-105)
[2024-12-15] VITALS (9 sets, daily range): BP systolic 127–157; BP diastolic 72–110; PULSE 91–109; RESP 15–23; TEMP 36.4–36.8; O2SAT 97–100
[2024-12-15] MEDS: METOCLOPRAMIDE HCL INJ 10 MG/2 ML VIAL IV PUSH ×4 (00:37→17:03)
[2024-12-15 00:50] LABS: Anion Gap 9 mmol/L (4-12); Blood Urea Nitrogen 9 mg/dL (9-20); Calcium 8.7 mg/dL (8.4-10.2); Carbon Dioxide 19 mmol/L (22-30); Chloride 112 mmol/L (98-107); Estimated CRCL calculation 126 ml/min; Estimated Glomerular Filt Rate > 60; Glucose 219 mg/dL (65-110); Potassium 3.3 mmol/L (3.4-5.0); Sodium 140 mmol/L (137-145)
[2024-12-15 01:28] LABS: Glucose Point of Care 215 mg/dl (65-105)
[2024-12-15 02:23] LABS: Glucose Point of Care 228 mg/dl (65-105)
[2024-12-15 03:31] LABS: Glucose Point of Care 201 mg/dl (65-105)
[2024-12-15] MEDS: KCL 20 MEQ/D5/0.45% SOD CHL 1,000 ML 150 ML IV CONT (03:41)
[2024-12-15 03:53] LABS: Basophils Percent Auto 0.4 % (0.2-1.2); Eosinophils Percent Auto 0.4 % (0-4.4); Hematocrit 29.3 % (42.0-52.0); Hemoglobin 10.1 g/dL (14.0-18.0); Immature Granulocyte Absolute 0.01 K/mm3 (0.00-0.031); Immature Granulocyte Percent A 0.2 % (0-0.5); Lymphocytes Absolute Auto 2.22 K/mm3 (0.9-3.2); Mean Corpuscular HGB Conc 34.5 g/dl (32-36); Mean Corpuscular Hemoglobin 31.1 pg (26-34); Mean Corpuscular Volume 90.2 fl (80-100); Mean Platelet Volume 8.8 fl (7.4-10.4); Monocytes Absolute Auto 0.4 K/mm3 (0.1-0.6); Monocytes Percent Auto 8.1 % (2.6-8.5); Neutrophils Absolute Auto 2.4 K/mm3 (1.3-6.7); Neutrophils Percent Auto 46.9 % (45.5-73.1); Platelet Count Result 169 k/mm3 (150-375); Red Blood Count 3.25 M/mm3 (4.6-6.20); Red Cell Distribution Width 13.5 % (11.5-14.5); White Blood Count 5.1 K/mm3 (4.5-10.0)
[2024-12-15 04:14] LABS: Anion Gap 7 mmol/L (4-12); Blood Urea Nitrogen 9 mg/dL (9-20); Calcium 8.7 mg/dL (8.4-10.2); Carbon Dioxide 21 mmol/L (22-30); Chloride 112 mmol/L (98-107); Estimated CRCL calculation 144 ml/min; Estimated Glomerular Filt Rate > 60; Glucose 217 mg/dL (65-110); Potassium 3.3 mmol/L (3.4-5.0); Sodium 140 mmol/L (137-145)
[2024-12-15 04:24] LABS: Alanine Aminotransferase 12 U/L (6-50); Alkaline Phosphatase 65 U/L (38-126); Anion Gap 8 mmol/L (4-12); Aspartate Amino Transferase 15 U/L (17-59); Bilirubin,Total 0.7 mg/dL (0.2-1.3); Blood Urea Nitrogen 9 mg/dL (9-20); Calcium 8.6 mg/dL (8.4-10.2); Carbon Dioxide 20 mmol/L (22-30); Chloride 112 mmol/L (98-107); Estimated CRCL calculation 135 ml/min; Estimated Glomerular Filt Rate > 60; Glucose 218 mg/dL (65-110); Magnesium 1.9 mg/dL (1.6-2.3); Phosphorus 2.4 mg/dL (2.5-4.5); Potassium 3.2 mmol/L (3.4-5.0); Sodium 140 mmol/L (137-145)
[2024-12-15 05:26] LABS: Glucose Point of Care 231 mg/dl (65-105)
[2024-12-15 06:36] LABS: Glucose Point of Care 223 mg/dl (65-105)
[2024-12-15 07:29] LABS: Glucose Point of Care 230 mg/dl (65-105)
[2024-12-15] MEDS: INSULIN GLARGINE (*BKC) 100 UNITS/ML 50 UNITS SUB-Q (07:45)
--- NOTE | 2024-12-15 07:51 | P.PNINT_ITS ---
Progress Note: A&P Assessment and Plan (1) DKA (diabetic ketoacidosis): Qualifiers: Diabetes mellitus complication detail: without coma Diabetes mellitus type: type 2 Qualified Code(s): E11.10 - Type 2 diabetes mellitus with ketoacidosis without coma Code(s): E11.10 - Type 2 diabetes mellitus with ketoacidosis without coma Status: Acute Assessment and Plan: 12/14: Patient presented to the ER with complains of nausea, vomiting, abdominal pain. Was found to have elevated blood sugars, elevated anion gap, urine analysis showed increased urine proteins, ketones and glucose. -patient was given 3 L IV fluid bolus in the ER, started on insulin infusion per DKA protocol is and with fluids and go with it -additional 2 L IV fluid bolus were given in the ICU -continue insulin infusion per DKA protocol -anion gap closed this morning, CO2 much improved. -will transition to long-acting insulin and sliding scale insulin -appreciate educator senior clinical evaluation and recommendations -appreciate dietitian evaluation and recommendations (2) Type 2 diabetes mellitus: Qualifiers: Diabetes mellitus long filler cigar roller machine insulin use: with long filler cigar roller machine use Diabetes mellitus complication status: without complication Qualified Code(s): E11.9 - Type 2 diabetes mellitus without complications; Z79.4 - detention (current) use of insulin Code(s): E11.9 - Type 2 diabetes mellitus without complications Status: Acute Assessment and Plan: Hemoglobin A1c is 13.6 this admission -patient has an insulin pump at home, was unable to refill it as his insurance has changed, so could not take his insulin. -will start Lantus and sliding scale insulin along with Accu-Cheks (3) Nausea & vomiting: Code(s): R11.2 - Nausea with vomiting, unspecified Status: Acute Assessment and Plan: RESOLVED Likely related to diabetic ketoacidosis -patient also has a history of esophagitis -patient takes Reglan at home, -continue IV Reglan -continue Zofran p.r.n. (4) Depression: Code(s): F32.9 - Major depressive disorder, single episode, unspecified Status: Acute Assessment and Plan: Patient on buspirone, duloxetine at home, will resume Plan DVT prophylaxis: Lovenox Stress ulcer prophylaxis: Protonix Nutrition: Diabetic diet Code Status: Full code Critical Care Time Spent: 32 minutes Due to a high probability of clinically significant, life threatening deterioration, the patient required my highest level of preparedness to intervene emergently and I personally spent this critical care time directly and personally managing the patient. This critical care time included obtaining a history; examining the patient; pulse oximetry; ordering and review of studies; arranging urgent treatment with development of a management plan; evaluation of patient's response to treatment; frequent reassessment; and discussions with other providers. It was exclusive of separately billable procedures and treating other patients and teaching time. Please see Assessment and Plan section and the rest of the note for further information on patient assessment and treatment This dictation may have been done utilizing a voice recognition system. Attempts have been made to correct errors. However, there may be uncorrected grammatical, spelling, and recognitions errors present. Subjective Date/time seen: 12/15/24 07:51 Interval history: Reason for consult: Nausea, vomiting, abdominal pain, hyperglycemia, DKA 12/15/2024: Patient seen and examined in the ICU, is awake, alert, oriented. Denies any nausea, vomiting, abdominal pain, diarrhea overnight. He also denies any chest pain, shortness of breath. States he feels better. Anion gap has closed. Remains on insulin infusion. Hemodynamically stable, afebrile, adequate urine output Review of Systems Review of Systems: All systems reviewed & are unremarkable except as noted in HPI and below Exam Narrative: General: Pleasant gentleman, currently of insulin nausea/vomiting HEENT:? Pupils equal and reactive, sclera is clear, Neck:? Supple Respiratory:? Clear to auscultation bilaterally, no wheezing, adequate air entry Cardiac:? S1-S2 edema, tachycardic Abdomen:? Soft, nontender, nondistended, normoactive bowel sounds Extremities:? No edema, palpable pedal pulses Neuro:? Patient is awake, alert, oriented, nonfocal, answers to questions appropriately and follows simple commands in all extremities Skin:? No skin lesions noted Psych:? Normal mentation and affect Objective Data Vital Signs Vital Signs: Vital Signs - 24 hr 12/14/24 08:28 12/14/24 08:46 12/14/24 09:01 Temperature 97.6 F Pulse Rate 124 H 123 H 120 H Respiratory Rate 16 14 14 Blood Pressure 118/85 114/75 114/73 Pulse Oximetry 100 100 100 Oxygen Delivery 12/14/24 09:31 12/14/24 10:01 12/14/24 11:10 Temperature 98.6 F Pulse Rate 119 H 119 H 129 H Respiratory Rate 14 16 18 Blood Pressure 117/70 119/78 133/93 H Pulse Oximetry 100 100 100 Oxygen Delivery 12/14/24 12:00 12/14/24 12:00 12/14/24 12:00 Temperature Pulse Rate 126 H 127 H 126 H Respiratory Rate 17 16 Blood Pressure Pulse Oximetry 100 100 Oxygen Delivery Room Air 12/14/24 12:04 12/14/24 14:00 12/14/24 14:00 Temperature Pulse Rate 118 H 114 H Respiratory Rate 15 Blood Pressure 111/52 L 113/84 Pulse Oximetry 100 Oxygen Delivery 12/14/24 16:00 12/14/24 16:00 12/14/24 16:00 Temperature 98.3 F Pulse Rate 107 H 108 H 108 H Respiratory Rate 28 H 12 Blood Pressure 122/81 Pulse Oximetry 100 100 Oxygen Delivery Room Air 12/14/24 18:00 12/14/24 18:00 12/14/24 20:00 Temperature Pulse Rate 109 H 116 H Respiratory Rate 12 Blood Pressure 132/88 Pulse Oximetry 99 Oxygen Delivery Room Air 12/14/24 20:00 12/14/24 20:00 12/14/24 22:00 Temperature 97.7 F Pulse Rate 108 H 109 H 114 H Respiratory Rate 11 L Blood Pressure 127/82 Pulse Oximetry 98 Oxygen Delivery 12/14/24 22:00 12/15/24 00:00 12/15/24 00:00 Temperature 98.3 F Pulse Rate 114 H 100 Respiratory Rate 19 23 H Blood Pressure 139/91 H 131/87 Pulse Oximetry 98 97 Oxygen Delivery Room Air 12/15/24 00:00 12/15/24 02:00 12/15/24 02:00 Temperature Pulse Rate 109 H 98 98 Respiratory Rate 23 H Blood Pressure 131/85 Pulse Oximetry 98 Oxygen Delivery 12/15/24 04:00 12/15/24 04:00 12/15/24 04:00 Temperature 98.3 F Pulse Rate 102 H 101 H Respiratory Rate 15 Blood Pressure 135/91 H Pulse Oximetry 99 Oxygen Delivery Room Air 12/15/24 06:00 12/15/24 06:00 Temperature Pulse Rate 92 91 Respiratory Rate 19 Blood Pressure 127/90 Pulse Oximetry 98 Oxygen Delivery Intake/Output Intake/Output: Intake & Output 12/12/24 12/13/24 12/14/24 12/15/24 23:59 23:59 23:59 23:59 Intake Total 3681.9 750.6 Output Total 1999 Balance 1681.9 750.6 Meds/Results Medications: Active Medications Generic Name Dose Route Start Last Admin Trade Name Freq PRN Reason Stop Dose Admin Dextrose 12.5 gm 12/15/24 07:07 Dextrose 50% 25 Gm/50 Ml Syringe IV PUSH PRN PRN Hypoglycemia Protocol Enoxaparin Sodium 40 mg 12/15/24 09:00 Enoxaparin 40 Mg/0.4 Ml Syringe SUB-Q DAILY CHETNA Glucagon 1 mg 12/15/24 07:07 Glucagon For Inj 1 Mg Vial IM PRN PRN Hypoglycemia Protocol Glucose 15 gm 12/15/24 07:07 Glucose Oral Gel 15 Gm Of Glucse In 37.5 Gm Tube PO PRN PRN Hypoglycemia Protocol Sodium Chloride 1,000 mls @ 150 mls/hr 12/14/24 11:15 12/15/24 04:22 Normal Saline Iv IV CONT Not Given .Q6H40M CHETNA Potassium Chloride/Dextrose/Sod Cl 1,000 mls @ 150 mls/hr 12/14/24 11:15 12/15/24 03:41 Kcl 20 Meq/D5/0.45% Sod Chl IV CONT 150 mls/hr .Q6H40M CHETNA Administration Dextrose/Sodium Chloride 1,000 mls @ 150 mls/hr 12/14/24 11:15 12/15/24 04:22 Dextrose 5% Sodium Chloride 0.45% IV CONT Not Given .Q6H40M CHETNA Insulin Human Regular 100 100 mls @ 2.5 mls/hr 12/14/24 11:15 12/15/24 06:40 units/ Sodium Chloride IV CONT 2.5 units/hr .Q24H CHETNA 2.5 mls/hr Titration Protocol 2.5 UNITS/HR Dextrose 1,000 mls @ 100 mls/hr 12/15/24 07:07 Dextrose 5% 1,000 Ml IVPB PRN PRN Hypoglycemia Protocol Insulin Aspart 2 - 4 units 12/15/24 21:00 Insulin Aspart (*Bkc) 100 Units/Ml SUB-Q HS CHETNA Protocol Insulin Aspart 4 - 8 units 12/15/24 08:00 Insulin Aspart (*Bkc) 100 Units/Ml SUB-Q TIDWM [facility] Protocol Insulin Glargine 50 units 12/16/24 09:00 Insulin Glargine (*Bkc) 100 Units/Ml SUB-Q DAILY [facility] Metoclopramide HCl 10 mg 12/14/24 12:00 12/15/24 06:31 Metoclopramide Hcl Inj 10 Mg/2 Ml Vial IV PUSH 12/16/24 06:01 10 mg Q6HR CHETNA Administration Ondansetron HCl 4 mg 12/14/24 10:37 Ondansetron Inj 4 Mg/2 Ml Vial IV PUSH Q4H PRN Nausea Pantoprazole Sodium 40 mg 12/15/24 09:00 Pantoprazole Sodium Iv 40 Mg Vial IV PUSH QAM [facility] Labs Labs: Laboratory Results - last 24 hr 12/14/24 12/14/24 12/14/24 08:16 08:27 09:10 WBC 8.1 RBC 4.28 L Hgb 13.1 L Hct 39.1 L MCV 91.4 MCH 30.6 MCHC 33.5 RDW 13.7 Plt Count 227 MPV 9.5 Immature Gran % (Auto) 0.4 Neut % (Auto) 59.5 Lymph % (Auto) 32.2 Catron % (Auto) 7.7 Eos % (Auto) 0.0 Baso % (Auto) 0.2 Lymph # (Auto) 2.62 [place] # (Auto) 0.6 Eos # (Auto) 0.0 Baso # (Auto) 0.0 Abs Immat Gran (auto) 0.03 Absolute Neuts (auto) 4.8 Absolute Nucleated RBC 0.000 Nucleated RBC % 0.0 Puncture Site Left radial ABG pH 7.299 L ABG pCO2 22.8 L* ABG pO2 88.8 ABG PO2/FiO2 Ratio 4.23 ABG HCO3 10.9 L ABG O2 Saturation 96.2 ABG O2 Content 17.4 ABG Base Excess -13.5 A-a Gradient 33.6 Oxyhemoglobin 95.3 Carboxyhemoglobin 0.9 Methemoglobin 0.1 Reduced Hemoglobin 3.7 Total Hemoglobin 12.9 O2 Delivery Device Room air O2 Liters/Min Not Reportable FiO2 21 Sodium 141 Potassium 3.6 Chloride 105 Carbon Dioxide 13 L Anion Gap 23 H BUN 14 Creatinine 0.92 Estim Creat Clear Calc 93 Estimated GFR > 60 Glucose 247 H POC Capillary Glucose 226 H Hemoglobin A1c Calcium 9.7 Phosphorus Magnesium Total Bilirubin 1.1 AST 20 ALT 16 Alkaline Phosphatase 102 Total Protein 7.0 Albumin 4.4 Lipase 137 Urine Color Yellow Urine Appearance Clear Urine pH 6.0 Ur Specific [place] 1.028 Urine Protein 1+ H Urine Glucose (UA) 3+ H Urine Ketones 4+ H Ur Blood (Man) Negative Urine Nitrate Negative Urine Bilirubin Negative Urine Urobilinogen 1.0 Leukocyte Esterase Rfl Negative Urine RBC 0-2 Urine WBC 0-5 Ur Squamous Epith Cells None seen Urine Bacteria None seen Urine Casts 3-5 Nasal MRSA (PCR) 12/14/24 12/14/24 12/14/24 10:21 10:41 11:22 WBC RBC Hgb Hct MCV MCH MCHC RDW Plt Count MPV Immature Gran % (Auto) Neut % (Auto) Lymph % (Auto) Cat[place] % (Auto) Eos % (Auto) Baso % (Auto) Lymph # (Auto) [place] # (Auto) Eos # (Auto) Baso # (Auto) Abs Immat Gran (auto) Absolute Neuts (auto) Absolute Nucleated RBC Nucleated RBC % Puncture Site ABG pH ABG pCO2 ABG pO2 ABG PO2/FiO2 Ratio ABG HCO3 ABG O2 Saturation ABG O2 Content ABG Base Excess A-a Gradient Oxyhemoglobin Carboxyhemoglobin Methemoglobin Reduced Hemoglobin Total Hemoglobin O2 Delivery Device O2 Liters/Min FiO2 Sodium Potassium Chloride Carbon Dioxide Anion Gap BUN Creatinine Estim Creat Clear Calc Estimated GFR Glucose POC Capillary Glucose 243 H 241 H Hemoglobin A1c Calcium Phosphorus Magnesium Total Bilirubin AST ALT Alkaline Phosphatase Total Protein Albumin Lipase Urine Color Urine Appearance Urine pH Ur Specific [place] Urine Protein Urine Glucose (UA) Urine Ketones Ur Blood (Man) Urine Nitrate Urine Bilirubin Urine Urobilinogen Leukocyte Esterase Rfl Urine RBC Urine WBC Ur Squamous Epith Cells Urine Bacteria Urine Casts Nasal MRSA (PCR) Not detected 12/14/24 12/14/24 12/14/24 12:21 12:26 13:21 WBC RBC Hgb Hct MCV MCH MCHC RDW Plt Count MPV Immature Gran % (Auto) Neut % (Auto) Lymph % (Auto) [place] % (Auto) Eos % (Auto) Baso % (Auto) Lymph # (Auto) [place] # (Auto) Eos # (Auto) Baso # (Auto) Abs Immat Gran (auto) Absolute Neuts (auto) Absolute Nucleated RBC Nucleated RBC % Puncture Site ABG pH ABG pCO2 ABG pO2 ABG PO2/FiO2 Ratio ABG HCO3 ABG O2 Saturation ABG O2 Content ABG Base Excess A-a Gradient Oxyhemoglobin Carboxyhemoglobin Methemoglobin Reduced Hemoglobin Total Hemoglobin O2 Delivery Device O2 Liters/Min FiO2 Sodium 143 Potassium 4.2 Chloride 112 H Carbon Dioxide 7 L Anion Gap 24 H BUN 12 Creatinine 0.80 Estim Creat Clear Calc 105 Estimated GFR > 60 Glucose 263 H POC Capillary Glucose 281 H 265 H Hemoglobin A1c 13.6 H Calcium 8.4 Phosphorus Magnesium Total Bilirubin AST ALT Alkaline Phosphatase Total Protein Albumin Lipase Urine Color Urine Appearance Urine pH Ur Specific [place] Urine Protein Urine Glucose (UA) Urine Ketones Ur Blood (Man) Urine Nitrate Urine Bilirubin Urine Urobilinogen Leukocyte Esterase Rfl Urine RBC Urine WBC Ur Squamous Epith Cells Urine Bacteria Urine Casts Nasal MRSA (PCR) 12/14/24 12/14/24 12/14/24 14:23 15:23 16:22 WBC RBC Hgb Hct MCV MCH MCHC RDW Plt Count MPV Immature Gran % (Auto) Neut % (Auto) Lymph % (Auto) [place] % (Auto) Eos % (Auto) Baso % (Auto) Lymph # (Auto) [place] # (Auto) Eos # (Auto) Baso # (Auto) Abs Immat Gran (auto) Absolute Neuts (auto) Absolute Nucleated RBC Nucleated RBC % Puncture Site ABG pH ABG pCO2 ABG pO2 ABG PO2/FiO2 Ratio ABG HCO3 ABG O2 Saturation ABG O2 Content ABG Base Excess A-a Gradient Oxyhemoglobin Carboxyhemoglobin Methemoglobin Reduced Hemoglobin Total Hemoglobin O2 Delivery Device O2 Liters/Min FiO2 Sodium Potassium Chloride Carbon Dioxide Anion Gap BUN Creatinine Estim Creat Clear Calc Estimated GFR Glucose POC Capillary Glucose 203 H 176 H 183 H Hemoglobin A1c Calcium Phosphorus Magnesium Total Bilirubin AST ALT Alkaline Phosphatase Total Protein Albumin Lipase Urine Color Urine Appearance Urine pH Ur Specific [place] Urine Protein Urine Glucose (UA) Urine Ketones Ur Blood (Man) Urine Nitrate Urine Bilirubin Urine Urobilinogen Leukocyte Esterase Rfl Urine RBC Urine WBC Ur Squamous Epith Cells Urine Bacteria Urine Casts Nasal MRSA (PCR) 12/14/24 12/14/24 12/14/24 16:52 17:21 18:25 WBC RBC Hgb Hct MCV MCH MCHC RDW Plt Count MPV Immature Gran % (Auto) Neut % (Auto) Lymph % (Auto) Cat[place] % (Auto) Eos % (Auto) Baso % (Auto) Lymph # (Auto) [place] # (Auto) Eos # (Auto) Baso # (Auto) Abs Immat Gran (auto) Absolute Neuts (auto) Absolute Nucleated RBC Nucleated RBC % Puncture Site ABG pH ABG pCO2 ABG pO2 ABG PO2/FiO2 Ratio ABG HCO3 ABG O2 Saturation ABG O2 Content ABG Base Excess A-a Gradient Oxyhemoglobin Carboxyhemoglobin Methemoglobin Reduced Hemoglobin Total Hemoglobin O2 Delivery Device O2 Liters/Min FiO2 Sodium 142 Potassium 3.5 Chloride 113 H Carbon Dioxide 15 L Anion Gap 14 H BUN 11 Creatinine 0.74 Estim Creat Clear Calc 113 Estimated GFR > 60 Glucose 174 H POC Capillary Glucose 199 H 193 H Hemoglobin A1c Calcium 8.5 Phosphorus Magnesium Total Bilirubin AST ALT Alkaline Phosphatase Total Protein Albumin Lipase Urine Color Urine Appearance Urine pH Ur Specific [place] Urine Protein Urine Glucose (UA) Urine Ketones Ur Blood (Man) Urine Nitrate Urine Bilirubin Urine Urobilinogen Leukocyte Esterase Rfl Urine RBC Urine WBC Ur Squamous Epith Cells Urine Bacteria Urine Casts Nasal MRSA (PCR) 12/14/24 12/14/24 12/14/24 19:24 20:20 20:22 WBC RBC Hgb Hct MCV MCH MCHC RDW Plt Count MPV Immature Gran % (Auto) Neut % (Auto) Lymph % (Auto) Cat[place] % (Auto) Eos % (Auto) Baso % (Auto) Lymph # (Auto) [place] # (Auto) Eos # (Auto) Baso # (Auto) Abs Immat Gran (auto) Absolute Neuts (auto) Absolute Nucleated RBC Nucleated RBC % Puncture Site ABG pH ABG pCO2 ABG pO2 ABG PO2/FiO2 Ratio ABG HCO3 ABG O2 Saturation ABG O2 Content ABG Base Excess A-a Gradient Oxyhemoglobin Carboxyhemoglobin Methemoglobin Reduced Hemoglobin Total Hemoglobin O2 Delivery Device O2 Liters/Min FiO2 Sodium 140 Potassium 3.4 Chloride 112 H Carbon Dioxide 13 L Anion Gap 15 H BUN 10 Creatinine 0.72 Estim Creat Clear Calc 116 Estimated GFR > 60 Glucose 231 H POC Capillary Glucose 234 H 239 H Hemoglobin A1c Calcium 8.6 Phosphorus Magnesium Total Bilirubin AST ALT Alkaline Phosphatase Total Protein Albumin Lipase Urine Color Urine Appearance Urine pH Ur Specific [place] Urine Protein Urine Glucose (UA) Urine Ketones Ur Blood (Man) Urine Nitrate Urine Bilirubin Urine Urobilinogen Leukocyte Esterase Rfl Urine RBC Urine WBC Ur Squamous Epith Cells Urine Bacteria Urine Casts Nasal MRSA (PCR) 12/14/24 12/14/24 12/14/24 21:20 22:26 23:22 WBC RBC Hgb Hct MCV MCH MCHC RDW Plt Count MPV Immature Gran % (Auto) Neut % (Auto) Lymph % (Auto) [place] % (Auto) Eos % (Auto) Baso % (Auto) Lymph # (Auto) [place] # (Auto) Eos # (Auto) Baso # (Auto) Abs Immat Gran (auto) Absolute Neuts (auto) Absolute Nucleated RBC Nucleated RBC % Puncture Site ABG pH ABG pCO2 ABG pO2 ABG PO2/FiO2 Ratio ABG HCO3 ABG O2 Saturation ABG O2 Content ABG Base Excess A-a Gradient Oxyhemoglobin Carboxyhemoglobin Methemoglobin Reduced Hemoglobin Total Hemoglobin O2 Delivery Device O2 Liters/Min FiO2 Sodium Potassium Chloride Carbon Dioxide Anion Gap BUN Creatinine Estim Creat Clear Calc Estimated GFR Glucose POC Capillary Glucose 240 H 260 H 257 H Hemoglobin A1c Calcium Phosphorus Magnesium Total Bilirubin AST ALT Alkaline Phosphatase Total Protein Albumin Lipase Urine Color Urine Appearance Urine pH Ur Specific [place] Urine Protein Urine Glucose (UA) Urine Ketones Ur Blood (Man) Urine Nitrate Urine Bilirubin Urine Urobilinogen Leukocyte Esterase Rfl Urine RBC Urine WBC Ur Squamous Epith Cells Urine Bacteria Urine Casts Nasal MRSA (PCR) 12/15/24 12/15/24 12/15/24 00:34 01:25 02:20 WBC RBC Hgb Hct MCV MCH MCHC RDW Plt Count MPV Immature Gran % (Auto) Neut % (Auto) Lymph % (Auto) [place] % (Auto) Eos % (Auto) Baso % (Auto) Lymph # (Auto) [place] # (Auto) Eos # (Auto) Baso # (Auto) Abs Immat Gran (auto) Absolute Neuts (auto) Absolute Nucleated RBC Nucleated RBC % Puncture Site ABG pH ABG pCO2 ABG pO2 ABG PO2/FiO2 Ratio ABG HCO3 ABG O2 Saturation ABG O2 Content ABG Base Excess A-a Gradient Oxyhemoglobin Carboxyhemoglobin Methemoglobin Reduced Hemoglobin Total Hemoglobin O2 Delivery Device O2 Liters/Min FiO2 Sodium 140 Potassium 3.3 L Chloride 112 H Carbon Dioxide 19 L Anion Gap 9 BUN 9 Creatinine 0.66 L Estim Creat Clear Calc 126 Estimated GFR > 60 Glucose 219 H POC Capillary Glucose 215 H 228 H Hemoglobin A1c Calcium 8.7 Phosphorus Magnesium Total Bilirubin AST ALT Alkaline Phosphatase Total Protein Albumin Lipase Urine Color Urine Appearance Urine pH Ur Specific [place] Urine Protein Urine Glucose (UA) Urine Ketones Ur Blood (Man) Urine Nitrate Urine Bilirubin Urine Urobilinogen Leukocyte Esterase Rfl Urine RBC Urine WBC Ur Squamous Epith Cells Urine Bacteria Urine Casts Nasal MRSA (PCR) 12/15/24 12/15/24 12/15/24 03:28 03:41 03:41 WBC RBC Hgb Hct MCV MCH MCHC RDW Plt Count MPV Immature Gran % (Auto) Neut % (Auto) Lymph % (Auto) [place] % (Auto) Eos % (Auto) Baso % (Auto) Lymph # (Auto) [place] # (Auto) Eos # (Auto) Baso # (Auto) Abs Immat Gran (auto) Absolute Neuts (auto) Absolute Nucleated RBC Nucleated RBC % Puncture Site ABG pH ABG pCO2 ABG pO2 ABG PO2/FiO2 Ratio ABG HCO3 ABG O2 Saturation ABG O2 Content ABG Base Excess A-a Gradient Oxyhemoglobin Carboxyhemoglobin Methemoglobin Reduced Hemoglobin Total Hemoglobin O2 Delivery Device O2 Liters/Min FiO2 Sodium 140 140 Potassium 3.3 L Chloride Carbon Dioxide Anion Gap BUN Creatinine Estim Creat Clear Calc Estimated GFR Glucose POC Capillary Glucose 201 H Hemoglobin A1c Calcium Phosphorus Magnesium Total Bilirubin AST ALT Alkaline Phosphatase Total Protein Albumin Lipase Urine Color Urine Appearance Urine pH Ur Specific [place] Urine Protein Urine Glucose (UA) Urine Ketones Ur Blood (Man) Urine Nitrate Urine Bilirubin Urine Urobilinogen Leukocyte Esterase Rfl Urine RBC Urine WBC Ur Squamous Epith Cells Urine Bacteria Urine Casts Nasal MRSA (PCR) 12/15/24 12/15/24 12/15/24 03:41 03:41 03:41 WBC RBC Hgb Hct MCV MCH MCHC RDW Plt Count MPV Immature Gran % (Auto) Neut % (Auto) Lymph % (Auto) [place] % (Auto) Eos % (Auto) Baso % (Auto) Lymph # (Auto) [place] # (Auto) Eos # (Auto) Baso # (Auto) Abs Immat Gran (auto) Absolute Neuts (auto) Absolute Nucleated RBC Nucleated RBC % Puncture Site ABG pH ABG pCO2 ABG pO2 ABG PO2/FiO2 Ratio ABG HCO3 ABG O2 Saturation ABG O2 Content ABG Base Excess A-a Gradient Oxyhemoglobin Carboxyhemoglobin Methemoglobin Reduced Hemoglobin Total Hemoglobin O2 Delivery Device O2 Liters/Min FiO2 Sodium Potassium 3.2 L Chloride 112 H 112 H Carbon Dioxide 21 L 20 L Anion Gap 7 BUN Creatinine Estim Creat Clear Calc Estimated GFR Glucose POC Capillary Glucose Hemoglobin A1c Calcium Phosphorus Magnesium Total Bilirubin AST ALT Alkaline Phosphatase Total Protein Albumin Lipase Urine Color Urine Appearance Urine pH Ur Specific [place] Urine Protein Urine Glucose (UA) Urine Ketones Ur Blood (Man) Urine Nitrate Urine Bilirubin Urine Urobilinogen Leukocyte Esterase Rfl Urine RBC Urine WBC Ur Squamous Epith Cells Urine Bacteria Urine Casts Nasal MRSA (PCR) 12/15/24 12/15/24 12/15/24 03:41 03:41 03:41 WBC RBC Hgb Hct MCV MCH MCHC RDW Plt Count MPV Immature Gran % (Auto) Neut % (Auto) Lymph % (Auto) [place] % (Auto) Eos % (Auto) Baso % (Auto) Lymph # (Auto) [place] # (Auto) Eos # (Auto) Baso # (Auto) Abs Immat Gran (auto) Absolute Neuts (auto) Absolute Nucleated RBC Nucleated RBC % Puncture Site ABG pH ABG pCO2 ABG pO2 ABG PO2/FiO2 Ratio ABG HCO3 ABG O2 Saturation ABG O2 Content ABG Base Excess A-a Gradient Oxyhemoglobin Carboxyhemoglobin Methemoglobin Reduced Hemoglobin Total Hemoglobin O2 Delivery Device O2 Liters/Min FiO2 Sodium Potassium Chloride Carbon Dioxide Anion Gap 8 BUN 9 9 Creatinine 0.57 L 0.61 L Estim Creat Clear Calc 144 Estimated GFR Glucose POC Capillary Glucose Hemoglobin A1c Calcium Phosphorus Magnesium Total Bilirubin AST ALT Alkaline Phosphatase Total Protein Albumin Lipase Urine Color Urine Appearance Urine pH Ur Specific [place] Urine Protein Urine Glucose (UA) Urine Ketones Ur Blood (Man) Urine Nitrate Urine Bilirubin Urine Urobilinogen Leukocyte Esterase Rfl Urine RBC Urine WBC Ur Squamous Epith Cells Urine Bacteria Urine Casts Nasal MRSA (PCR) 12/15/24 12/15/24 12/15/24 03:41 03:41 03:41 WBC RBC Hgb Hct MCV MCH MCHC RDW Plt Count MPV Immature Gran % (Auto) Neut % (Auto) Lymph % (Auto) [place] % (Auto) Eos % (Auto) Baso % (Auto) Lymph # (Auto) [place] # (Auto) Eos # (Auto) Baso # (Auto) Abs Immat Gran (auto) Absolute Neuts (auto) Absolute Nucleated RBC Nucleated RBC % Puncture Site ABG pH ABG pCO2 ABG pO2 ABG PO2/FiO2 Ratio ABG HCO3 ABG O2 Saturation ABG O2 Content ABG Base Excess A-a Gradient Oxyhemoglobin Carboxyhemoglobin Methemoglobin Reduced Hemoglobin Total Hemoglobin O2 Delivery Device O2 Liters/Min FiO2 Sodium Potassium Chloride Carbon Dioxide Anion Gap BUN Creatinine Estim Creat Clear Calc 135 Estimated GFR > 60 > 60 Glucose 217 H 218 H POC Capillary Glucose Hemoglobin A1c Calcium 8.7 Phosphorus Magnesium Total Bilirubin AST ALT Alkaline Phosphatase Total Protein Albumin Lipase Urine Color Urine Appearance Urine pH Ur Specific [place] Urine Protein Urine Glucose (UA) Urine Ketones Ur Blood (Man) Urine Nitrate Urine Bilirubin Urine Urobilinogen Leukocyte Esterase Rfl Urine RBC Urine WBC Ur Squamous Epith Cells Urine Bacteria Urine Casts Nasal MRSA (PCR) 12/15/24 12/15/24 12/15/24 03:41 03:42 05:24 WBC 5.1 RBC 3.25 L Hgb 10.1 L D Hct 29.3 L MCV 90.2 MCH 31.1 MCHC 34.5 RDW 13.5 Plt Count 169 MPV 8.8 Immature Gran % (Auto) 0.2 Neut % (Auto) 46.9 Lymph % (Auto) 44.0 [place] % (Auto) 8.1 Eos % (Auto) 0.4 Baso % (Auto) 0.4 Lymph # (Auto) 2.22 [place] # (Auto) 0.4 Eos # (Auto) 0.0 Baso # (Auto) 0.0 Abs Immat Gran (auto) 0.01 Absolute Neuts (auto) 2.4 Absolute Nucleated RBC 0.000 Nucleated RBC % 0.0 Puncture Site ABG pH ABG pCO2 ABG pO2 ABG PO2/FiO2 Ratio ABG HCO3 ABG O2 Saturation ABG O2 Content ABG Base Excess A-a Gradient Oxyhemoglobin Carboxyhemoglobin Methemoglobin Reduced Hemoglobin Total Hemoglobin O2 Delivery Device O2 Liters/Min FiO2 Sodium Potassium Chloride Carbon Dioxide Anion Gap BUN Creatinine Estim Creat Clear Calc Estimated GFR Glucose POC Capillary Glucose 231 H Hemoglobin A1c Calcium 8.6 Phosphorus 2.4 L Magnesium 1.9 Total Bilirubin 0.7 AST 15 L ALT 12 Alkaline Phosphatase 65 Total Protein 5.0 L Albumin 3.0 L Lipase Urine Color Urine Appearance Urine pH Ur Specific [place] Urine Protein Urine Glucose (UA) Urine Ketones Ur Blood (Man) Urine Nitrate Urine Bilirubin Urine Urobilinogen Leukocyte Esterase Rfl Urine RBC Urine WBC Ur Squamous Epith Cells Urine Bacteria Urine Casts Nasal MRSA (PCR) 12/15/24 12/15/24 06:31 07:27 WBC RBC Hgb Hct MCV MCH MCHC RDW Plt Count MPV Immature Gran % (Auto) Neut % (Auto) Lymph % (Auto) Catron % (Auto) Eos % (Auto) Baso % (Auto) Lymph # (Auto) [place] # (Auto) Eos # (Auto) Baso # (Auto) Abs Immat Gran (auto) Absolute Neuts (auto) Absolute Nucleated RBC Nucleated RBC % Puncture Site ABG pH ABG pCO2 ABG pO2 ABG PO2/FiO2 Ratio ABG HCO3 ABG O2 Saturation ABG O2 Content ABG Base Excess A-a Gradient Oxyhemoglobin Carboxyhemoglobin Methemoglobin Reduced Hemoglobin Total Hemoglobin O2 Delivery Device O2 Liters/Min FiO2 Sodium Potassium Chloride Carbon Dioxide Anion Gap BUN Creatinine Estim Creat Clear Calc Estimated GFR Glucose POC Capillary Glucose 223 H 230 H Hemoglobin A1c Calcium Phosphorus Magnesium Total Bilirubin AST ALT Alkaline Phosphatase Total Protein Albumin Lipase Urine Color Urine Appearance Urine pH Ur Specific Tuthill Urine Protein Urine Glucose (UA) Urine Ketones Ur Blood (Man) Urine Nitrate Urine Bilirubin Urine Urobilinogen Leukocyte Esterase Rfl Urine RBC Urine WBC Ur Squamous Epith Cells Urine Bacteria Urine Casts Nasal MRSA (PCR) Quality VTE Prophylaxis VTE prophylaxis: pharmacologic ordered
[2024-12-15] MEDS: ENOXAPARIN 40 MG/0.4 ML SYRINGE SUB-Q (08:09)
[2024-12-15] MEDS: POTASSIUM CHLORIDE 20 MEQ ER TABLET 40 MEQ PO (08:09)
[2024-12-15] MEDS: POTASSIUM CHLORIDE 20 MEQ ER TABLET PO (08:09)
[2024-12-15] MEDS: PANTOPRAZOLE SODIUM IV 40 MG VIAL IV PUSH (08:09)
[2024-12-15] MEDS: POTASSIUM/PHOSPHORUS/SODIUM 1.5 GM PACKET 1 PACKET PO (08:09)
[2024-12-15 08:25] LABS: Glucose Point of Care 201 mg/dl (65-105)
[2024-12-15 08:47] LABS: Anion Gap 8 mmol/L (4-12); Blood Urea Nitrogen 7 mg/dL (9-20); Calcium 8.9 mg/dL (8.4-10.2); Carbon Dioxide 23 mmol/L (22-30); Chloride 110 mmol/L (98-107); Estimated CRCL calculation 135 ml/min; Estimated Glomerular Filt Rate > 60; Glucose 212 mg/dL (65-110); Potassium 3.3 mmol/L (3.4-5.0); Sodium 141 mmol/L (137-145)
[2024-12-15 09:38] LABS: Glucose Point of Care 222 mg/dl (65-105)
[2024-12-15] MEDS: busPIRone HCL 5 MG TABLET 15 MG PO ×3 (09:52→17:03)
[2024-12-15] MEDS: DULoxetine HCL 60 MG CAPSULE.DR PO (09:52)
[2024-12-15 11:20] LABS: Glucose Point of Care 207 mg/dl (65-105)
[2024-12-15] MEDS: INSULIN ASPART (*BKC) 100 UNITS/ML SUB-Q ×5 (11:30→22:00)
--- NOTE | 2024-12-15 12:24 | PC.NURSE ---
This patient, Shane Wheeler, was transferred to [facility] on 12/15/24 at 1224. Personal belongings sent with patient. Report given to Antonio . Appropriate documentation sent with patient.
[2024-12-15 17:14] LABS: Glucose Point of Care 201 mg/dl (65-105)
[2024-12-15 21:44] LABS: Glucose Point of Care 291 mg/dl (65-105)
[2024-12-16] MEDS: METOCLOPRAMIDE HCL INJ 10 MG/2 ML VIAL IV PUSH ×2 (02:15→06:02)
[2024-12-16 05:29] LABS: Basophils Percent Auto 0.4 % (0.2-1.2); Eosinophils Absolute Auto 0.1 K/mm3 (0-0.3); Eosinophils Percent Auto 1.4 % (0-4.4); Hematocrit 30.7 % (42.0-52.0); Hemoglobin 10.6 g/dL (14.0-18.0); Immature Granulocyte Absolute 0.02 K/mm3 (0.00-0.031); Immature Granulocyte Percent A 0.4 % (0-0.5); Lymphocytes Absolute Auto 3.07 K/mm3 (0.9-3.2); Lymphocytes Percent Auto 54.6 % (18.3-44.2); Mean Corpuscular HGB Conc 34.5 g/dl (32-36); Mean Corpuscular Hemoglobin 30.6 pg (26-34); Mean Corpuscular Volume 88.7 fl (80-100); Mean Platelet Volume 9.6 fl (7.4-10.4); Monocytes Absolute Auto 0.4 K/mm3 (0.1-0.6); Monocytes Percent Auto 7.3 % (2.6-8.5); Neutrophils Percent Auto 35.9 % (45.5-73.1); Platelet Count Result 170 k/mm3 (150-375); Red Blood Count 3.46 M/mm3 (4.6-6.20); White Blood Count 5.6 K/mm3 (4.5-10.0)
[2024-12-16 05:38] LABS: Anion Gap 5 mmol/L (4-12); Blood Urea Nitrogen 6 mg/dL (9-20); Calcium 8.8 mg/dL (8.4-10.2); Carbon Dioxide 31 mmol/L (22-30); Chloride 100 mmol/L (98-107); Estimated CRCL calculation 148 ml/min; Estimated Glomerular Filt Rate > 60; Glucose 183 mg/dL (65-110); Magnesium 1.8 mg/dL (1.6-2.3); Phosphorus 3.3 mg/dL (2.5-4.5); Potassium 3.4 mmol/L (3.4-5.0); Sodium 136 mmol/L (137-145)
[2024-12-16 06:00] VITALS: BP 135/86; PULSE 103; RESP 18; TEMP 36.7; O2SAT 100
[2024-12-16 08:17] LABS: Glucose Point of Care 169 mg/dl (65-105)
--- NOTE | 2024-12-16 09:04 | PM.DS ---
DS: Admitting Diagnosis Discharge Date 12/16/24 Admitting Diagnosis Nausea vomiting and generalized weakness. DS: Discharge Diagnosis Discharge Diagnosis (1) DKA (diabetic ketoacidosis): Qualifiers: Diabetes mellitus complication detail: without coma Diabetes mellitus type: type 2 Qualified Code(s): E11.10 - Type 2 diabetes mellitus with ketoacidosis without coma Code(s): E11.10 - Type 2 diabetes mellitus with ketoacidosis without coma Status: Acute (2) DKA, type 1: Code(s): E10.10 - Type 1 diabetes mellitus with ketoacidosis without coma Status: Acute DS: Summary Hospital Course Hospital Course: 39-year-old male with history of type 1 diabetes, depression/anxiety ADHD, who presented to the ER on account of general weakness and vomiting. Noted that he ran of insulin in his insulin pump a few weeks ago and was switched to injections int he meantime while waiting for pump supplies. His suspects he was not taking his insulin injections appropriately and the last 3 days he started having the above symptoms. Denies any chest pain, diarrhea, lightheadedness, dysuria and focal weakness. Noted he had abd soreness from the vomiting with no real pain. ER eval notable for HR 124, labs abg 7.299/22.8/88.8/10.9. BG 241, anion gap 23 and CO2 13 he was started on insulin and IVF fluid and admitted to the ICU. DKA resolved and patient started on Sq regimen and blood sugar much better control. Patient noted he has his prescription for his insulin vials for his insulin pump already done by his PCP and he showed me the presription in his pharmacy portal. however I have prescribed Lantus 50 units and Kwikpen 5 unite premeal in case he runs into problems. F/u with PCP in 3-5 days Continue other home meds Time Spent with Patient Time attestation: Total time spent providing and/or coordinating discharge services: DS: Data Data Completed and Pending Labs on day of discharge: Labs from last 24 hours 12/16/24 12/16/24 12/15/24 08:14 04:57 21:37 WBC 5.6 RBC 3.46 L Hgb 10.6 L Hct 30.7 L MCV 88.7 MCH 30.6 MCHC 34.5 RDW 13.0 Plt Count 170 MPV 9.6 Immature Gran % (Auto) 0.4 Neut % (Auto) 35.9 L Lymph % (Auto) 54.6 H Kitt[place] % (Auto) 7.3 Eos % (Auto) 1.4 Baso % (Auto) 0.4 Lymph # (Auto) 3.07 [place] # (Auto) 0.4 Eos # (Auto) 0.1 Baso # (Auto) 0.0 Abs Immat Gran (auto) 0.02 Absolute Neuts (auto) 2.0 Absolute Nucleated RBC 0.000 Nucleated RBC % 0.0 Sodium 136 L Potassium 3.4 Chloride 100 Carbon Dioxide 31 H Anion Gap 5 BUN 6 L Creatinine 0.55 L Estim Creat Clear Calc 148 Estimated GFR > 60 Glucose 183 H POC Capillary Glucose 169 H 291 H Calcium 8.8 Phosphorus 3.3 Magnesium 1.8 12/15/24 12/15/24 12/15/24 16:50 11:06 09:35 WBC RBC Hgb Hct MCV MCH MCHC RDW Plt Count MPV Immature Gran % (Auto) Neut % (Auto) Lymph % (Auto) Kitt[place] % (Auto) Eos % (Auto) Baso % (Auto) Lymph # (Auto) [place] # (Auto) Eos # (Auto) Baso # (Auto) Abs Immat Gran (auto) Absolute Neuts (auto) Absolute Nucleated RBC Nucleated RBC % Sodium Potassium Chloride Carbon Dioxide Anion Gap BUN Creatinine Estim Creat Clear Calc Estimated GFR Glucose POC Capillary Glucose 201 H 207 H 222 H Calcium Phosphorus Magnesium Discharge Plan Discharge Attending physician on discharge: Robel Molina Consulting providers: Karena Marcial Discharging Clinician: Robel Molina Anticipated Discharge Date/Time: 12/16/24 08:44 Patient Disposition: Home Activity: as tolerated Diet: as tolerated and diabetic Patient Instructions: Antibiotic Form, Diabetic Ketoacidosis (GEN) Patient Language: Mexican Stand Alone Forms: General Discharge Information Follow-up/Referrals: Naren Ortega MD [Primary Care Provider] - (F/u with PCP in 3-5 days ) Discharge Medications: New insulin glargine [Lantus Solostar U-100 Insulin] 100 unit/mL (3 mL) insulin pen 50 unit subcut QPM Qty: 15 0RF insulin lispro [Humalog Judd KwikPen U-100] 100 unit/mL insulin pen, half-unit 5 unit subcut TIDWMEAL Qty: 15 0RF Continued buspirone 10 mg tablet 15 mg PO TID dextroamphetamine-amphetamine 10 mg tablet 20 mg PO DAILY fexofenadine [Aller-Fex] 180 mg tablet 180 mg PO DAILY PRN (Reason: seasonal allergies) insulin lispro [Humalog U-100 Insulin] 100 unit/mL solution See Rx Instructions continuous subcutaneous infusion .COMPLEX Qty: 10 2RF Rx Instructions: via continuous subcutaneous infusion 100units/mL; metoclopramide HCl 10 mg tablet 10 mg PO BID PRN (Reason: Nausea) Qty: 30 1RF duloxetine 60 mg capsule,delayed release(DR/EC) 60 mg PO DAILY Qty: 30 1RF Discontinued insulin glargine-yfgn [Semglee(insulin glarg-yfgn)Pen] 100 unit/mL (3 mL) insulin pen 50 unit SUBCUT DAILY Qty: 1 3RF Humalog KwikPen Insulin 200 unit/mL (3 mL) insulin pen 5 unit subcut TID Qty: 6 0RF Date of admission: 12/14/24 10:37 Primary Care Provider: Naren Ortega Admitting Provider: Robel Molina Attending physician on admission: Robel Molina Condition: Stable
[2024-12-16] MEDS: INSULIN ASPART (*BKC) 100 UNITS/ML SUB-Q ×3 (09:07→12:19)
[2024-12-16] MEDS: ENOXAPARIN 40 MG/0.4 ML SYRINGE SUB-Q (09:09)
[2024-12-16] MEDS: DULoxetine HCL 60 MG CAPSULE.DR PO (09:09)
[2024-12-16] MEDS: busPIRone HCL 5 MG TABLET 15 MG PO (09:09)
[2024-12-16] MEDS: INSULIN GLARGINE (*BKC) 100 UNITS/ML 50 UNITS SUB-Q (09:10)
[2024-12-16] MEDS: PANTOPRAZOLE SODIUM IV 40 MG VIAL IV PUSH (09:11)
[2024-12-16 11:58] LABS: Glucose Point of Care 218 mg/dl (65-105)
--- NOTE | 2024-12-24 15:53 | PCCDE ---
12/24/24 15:45 DM educator courtesy follow up call completed. Pt reports seeing glucose numbers in the 80's, stating seeing low sometimes. C/O being out of insulin pump supplies, has call into television mechanic officej (plans on reaching out again) -Reviewed target glucose and definition low (hypoglycemia) - Is taking basal/bolus regimen as per DC. - Pt considering OP DSMT and will ask endo office for referral when ready. FJ
== END 2024-12-16 12:20 | disposition home or self-care (01) ==
LOC: ANHED 08:47 → ANHICU 11:08 → ANH2MED 12-15 12:20
PROVIDERS: Internal Medicine; Admitting Provider Internal Medicine; Emergency Provider Emergency Medicine; PCP Emergency Medicine; Visit Provider Internal Medicine
DX: E10.10 Type 1 diabetes mellitus with ketoacidosis without coma (principal); F90.9 Attention-deficit hyperactivity disorder, unspecified type; F41.9 Anxiety disorder, unspecified; F32.9 Major depressive disorder, single episode, unspecified; K20.90 Esophagitis, unspecified without bleeding; Z79.4 Long term (current) use of insulin
CPT/HCPCS: 36415; 36600; 80048; 80053; 81001; 82375; 82805; 82948; 83036; 83050; 83690; 83735; 84100; 85018; 85025; 87641; 96361; 96366; 96367; 96368; 96372; 96374; 96375; 96376; 99285; A9270; G0378; J1650; J1815; J2405; J2470; J2765; J3480; J7030; J7120

== ENCOUNTER 2025-02-26 12:13 | Emergency (ER) | payer BC, SELFPAY ==
[2025-02-26 12:18] VITALS: BP 116/81; PULSE 96; RESP 18; TEMP 36.3; O2SAT 96
--- OUTSIDE RECORDS SUMMARY | 2025-02-26 12:39 | XMS_ITS | Clinical Summary ---
Author Organization [facility] Address [address] [place] [address] Care Team Providers Care Electrician Marine Name Role Phone Naren Ortega MD Primary Care Provider + [phone] Allergies No known active allergies Medications SEMGLEE-yfgn [...] to settings below. And I emailed [employer] about getting his software updated to 780 [...] Pt to send me a message via [email or web address] in a week, to let me know how he is doing with the new pump settings. Assessment & Plan (12/06/2022 4:46 PM CDT): Chronic problem, not at goal. He was not wearing his pump today as his pump site and CGM ended earlier today. We walked through placing a new pump and started a new CGM. I sent a note to [employer] to follow up with patient, especially concerning [...] advised to send me a message via [email or web address] every week or every other week so we can look at his freestyle Nando data for more advice The patient also benefit from an insulin pump. 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 Gender Identity Not on file Sexual Orientation [...] <65 (1 of 2 - PCV) 2005 HPV Vaccines (1 - 3-dose SCD M series) 2013 Hemoglobin A1C 07/29/2023 01/26/2023, 11/16, 11/02/2022, Additional history exists Albumin Creatinine Ratio, Urine 09/28/2023 , 09/27/2022 Foot Exam 11/03/2023 11/02/2022 Lipid Panel 11/03/2023 11/02/2022 eGFR 11/03/2023 11/02/2022 Depression Screening 12/15/2023 12/14/2022 Covid-19 Vaccine (2023-2 5 season) 2024 05/15/2021, 09/28/2020, 08/30/2020 Influenza Vaccine (#1) 2025 05/12/2021, 2019 Procedures Procedure Name Priority Date/Time Associated Diagnosis [...] BLOOD ORDERABLES Final Resul t [facility] [id number] [place] [address] * Lipid panel (11/02/2022 12:47 PM CDT) [...] BLOOD ORDERABLES Final Resul t [facility] [id number] [place] [address] * Albumin Creatinine Ratio, Urine [...] to Subscriber:Self Name:Shane Wheeler Payer ID:[id number] (NAIC) Type:[facility] Address: [facility] [id number] [phone] Care Teams Electrician Marine Relationship Specialty Start Date End Date Naren Ortega MD [address] [place] [address] PCP - General Family Medicine 01/07/22
--- OUTSIDE RECORDS SUMMARY | 2025-02-26 12:39 | XMS_ITS | Patient Health Record ---
Author Organization [facility] [employer] [facility] Address [address] [place] [address] Care Team Providers Care Automotive Sales Specialist Name Role Phone Sully Neville Unavailable [phone] Reason For Referral No Information Medications Medication SIG (Take, Route, Frequency, Duration) Notes Start Date End Date Status Metoprolol Succinate ER 25 MG Oral 06/24/2023 Active Sertraline HCl 50 MG Oral 06/24/2023 Active Sertraline HCl 100 MG Oral 06/24/2023 Active Sildenafil Citrate 100 MG Oral 06/24/2023 Active Lisinopril 5 MG Oral 06/24/2023 Act elle HUMALOG KWIKPEN U-200 200 unit/mL (3 mL) Subcutaneous *Reorder from [facility] for eRx and Interaction Alerts* 06/24/2023 Active DULoxetine HCl 60 MG Oral 06/24/2023 Active HumaLOG 100 UNIT/ML Subcutaneous 06/24/2023 Active TADALAFIL 5 MG TABLET *Reorder from [facility] for eRx and Interaction Alerts* 06/24/2023 Active Sertraline HCl 25 MG Oral 06/24/2023 Active BD CORINNE 2ND GEN PEN NEEDLE 32 GAUGE X 32 *[facility] Interaction Alert[facility]* 06/24/2023 Active SEMGLEE (INSULIN GLARGINE-YFGN) PEN 100 UNIT/ML (3 ML) SUBCUTANEOUS *[facility] and Interaction Alerts* 06/24/2023 Active Plan Of Treatment No Information Insurance Providers Payer Name Payer Address Payer Phone Subscriber Number Group Number Insured Name Patient Relationship to Insured Coverage Start Date Coverage End Date [employer] [address] [place] [phone] [id number] BIB MORENO Self - patient is the insured
--- NOTE | 2025-02-26 12:48 | ED.GENADULT ---
HPI - General Adult General Chief complaint: Recheck/Abnormal Lab/Rx Stated complaint: needs insulin script Time Seen by Provider: 02/26/25 12:25 History of Present Illness HPI narrative: 39-year-old male is a type 2 diabetic present to the emergency department for refilling of his NovoLog and Lantus. Patient states he has been unable to get in to see his digital production artist. Patient states that his primary care physician is out of town. Patient has been only taking his short-acting insulin has not been taking the long-acting since he has been out of that for an extended period of time. Patient does admit he did have a period time where he was not taking care for self but is trying to take care of himself again. Patient denies any recent illness coughs colds or fevers. Patient is only requesting a medication refill at this time. Patient denies any other complaints. Related Data Home Medications ?Medication ?Instructions ?Recorded ?Confirmed ?Last Taken ?Type buspirone 10 mg tablet 15 mg PO TID 07/08/24 12/14/24 12/13/24 History dextroamphetamine-amphetamine 10 20 mg PO DAILY 07/08/24 12/14/24 12/13/24 History mg tablet fexofenadine 180 mg tablet 180 mg PO DAILY PRN seasonal 07/08/24 12/14/24 Unknown History (Aller-Fex) allergies Allergies Allergy/AdvReac Type Severity Reaction Status Date / Time No Known Allergies Allergy Verified 02/26/25 12:20 Review of Systems Review of Systems: All systems reviewed & are unremarkable except as noted in HPI and below PMFSH Past Medical History Medical History Depression Eczema Erectile dysfunction Type 2 diabetes mellitus Surgical History Surgical History History of strabismus surgery In childhood Family History Family History (Updated 07/08/24 @ 21:56 by Anita Curry RN) Grandparent Skin cancer Breast cancer Peripheral vascular disease Lung cancer Mother Unknown family medical history Estranged from the patient Substance abuse Father Unknown family medical history Estranged from the patient Social History Social History Social History: The patient lives with his . They have been since 2021. They do not have any children. He is a lifelong nonsmoker. He drinks alcohol approximately once a month in in moderation. 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 He denies illicit substance use. Code status: Full code Surrogate decision maker: Smoking status: Never smoker Second hand tobacco smoke exposure: No Alcohol intake: unknown Drinks per week: 5 Substance use: unknown Substance use type: marijuana Do You Feel Safe in your Home?: Yes Lack of Transportation: No Lack of Food: Never True Current Housing: I Have Housing Concerned About Future Housing: No Difficulty Paying Gas/Electric Bills: No Difficulty Paying for Meds: No Currently Unemployed: No Education: Bachelor's Degree Difficulty w/ Childcare or Family Care: No Spiritual care concerns: No Exam Narrative: APPEARANCE: Well appearing, no pain, no distress, well-nourished. HEAD: normocephalic, atraumatic. EYES: PERRLA/EOMI, conjunctivae clear. NOSE: Normal no drainage EARS:TMS clear with good light reflex. THROAT: Pharynx clear, no exudate. NECK: Supple. No adenopathy, no masses. RESPIRATORY: Airway patent, respirations nonlabored. Clear to auscultation bilaterally, no rales, rhonchi, wheezing. CARDIOVASCULAR: Regular rate and rhythm without murmurs rubs or gallops. ABDOMINAL: Soft, nontender, nondistended, normal bowel sounds MUSCULOSKELETAL: Moves all extremities. Strength/ROM intact, No edema, No calf tenderness. NEURO: Alert. Cranial nerves II through XII intact. Good gait. Good coordination SKIN: Warm, dry. Normal Color Course Vital Signs Vital signs: Vital Signs Temperature 97.3 F L 02/26/25 12:18 Pulse Rate 96 02/26/25 12:18 Respiratory Rate 18 02/26/25 12:18 Blood Pressure 116/81 02/26/25 12:18 Pulse Oximetry 96 02/26/25 12:18 Oxygen Delivery Room Air 02/26/25 12:18 Temperature 97.3 F L 02/26/25 12:18 Pulse Rate 96 02/26/25 12:18 Respiratory Rate 18 02/26/25 12:18 Blood Pressure 116/81 02/26/25 12:18 Pulse Oximetry 96 02/26/25 12:18 Oxygen Delivery Room Air 02/26/25 12:18 Medical Decision Making Vital Signs Vital Signs: Vital Signs Temperature 97.3 F L 02/26/25 12:18 Pulse Rate 96 02/26/25 12:18 Respiratory Rate 18 02/26/25 12:18 Blood Pressure 116/81 02/26/25 12:18 Pulse Oximetry 96 02/26/25 12:18 Oxygen Delivery Room Air 02/26/25 12:18 Temperature 97.3 F L 02/26/25 12:18 Pulse Rate 96 02/26/25 12:18 Respiratory Rate 18 02/26/25 12:18 Blood Pressure 116/81 02/26/25 12:18 Pulse Oximetry 96 02/26/25 12:18 Oxygen Delivery Room Air 02/26/25 12:18 Discharge Plan Discharge Clinical Impression: Encounter for medication refill Type 2 diabetes mellitus Qualifiers: Diabetes mellitus nursing home insulin use: with nursing home use Diabetes mellitus complication status: without complication Qualified Code(s): E11.9 - Type 2 diabetes mellitus without complications Patient Disposition: Home Condition: Stable Instructions: Antibiotic Form Additional Instructions: Continue to seek follow-up with your digital production artist and your primary care physician. If you have any worsening symptoms then please call or return to the emergency department. Patient Language: Uzbek Prescriptions: New insulin aspart U-100 [Novolog U-100 Insulin aspart] 100 unit/mL solution 1 sliding scale dose subcut USEASDIRECTD Qty: 10 1RF Rx Instructions: Use on your home sliding scale, max 100 units per day. Apidra U-100 Insulin 100 unit/mL solution 50 unit subcut QPM Qty: 10 1RF No Action buspirone 10 mg tablet 15 mg PO TID dextroamphetamine-amphetamine 10 mg tablet 20 mg PO DAILY fexofenadine [Aller-Fex] 180 mg tablet 180 mg PO DAILY PRN (Reason: seasonal allergies) insulin lispro [Humalog U-100 Insulin] 100 unit/mL solution See Rx Instructions continuous subcutaneous infusion .COMPLEX Qty: 10 2RF Rx Instructions: via continuous subcutaneous infusion 100units/mL; insulin glargine [Lantus Solostar U-100 Insulin] 100 unit/mL (3 mL) insulin pen 50 unit subcut QPM Qty: 15 0RF insulin lispro [Humalog Judd KwikPen U-100] 100 unit/mL insulin pen, half-unit 5 unit subcut TIDWMEAL Qty: 15 0RF metoclopramide HCl 10 mg tablet 10 mg PO BID PRN (Reason: Nausea) Qty: 30 1RF duloxetine 60 mg capsule,delayed release(DR/EC) 60 mg PO DAILY Qty: 30 1RF Follow-up/Referrals: Naren Ortega MD [Primary Care Provider] -
--- OUTSIDE RECORDS SUMMARY | 2025-02-26 13:00 | XMS_ITS | Clinical Summary ---
Author Organization [facility] Address [address] [place] [address] Care Team Providers Care Waterproof Bag Cutting Machine Operator Name Role Phone Naren Ortega MD Primary Care Provider + [phone] Allergies No known active allergies Medications SEMGLEE-yfgn [...] Adjustment to settings below. And I emailed [employer] about getting his software updated to 780 [...] Pt to send me a message via [employer] in a week, to let me know how he is doing with the new pump settings. Assessment & Plan (12/06/2022 4:46 PM CDT): Chronic problem, not at goal. He was not wearing his pump today as his pump site and CGM ended earlier today. We walked through placing a new pump and started a new CGM. I sent a note to [employer] to follow up with patient, especially concerning [...] advised to send me a message via [employer] every week or every other week so we can look at his freestyle Nando data for more advice The patient also benefit from an insulin pump. 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 Address: [facility] [id number] [phone] Care Teams Waterproof Bag Cutting Machine Operator Relationship Specialty Start Date End Date Naren Ortega MD [address] [place] [address] PCP - General Family Medicine 01/07/22
== END 2025-02-26 13:26 | disposition home or self-care (01) ==
PROVIDERS: Emergency Provider Emergency Medicine; PCP Emergency Medicine
DX: E11.9 Type 2 diabetes mellitus without complications (principal); Z79.4 Long term (current) use of insulin; Z76.0 Encounter for issue of repeat prescription
CPT/HCPCS: 99281